=== PATIENT | male | born 1965 | race Caucasian/White ===

== ENCOUNTER 2018-07-27 07:53 | Day surgery (SDC) | payer BC ==
[2018-07-26 12:44] VITALS: BMI 39.4
--- NOTE | 2018-07-27 08:18 | HP ---
Satellite [facility] - Chief Complaint Chief Complaint: left knee pain - Past Medical History Allergies/Adverse Reactions: Allergies Allergy/AdvReac Type Severity Reaction Status Date / Time oxycodone [From OxyContin] Allergy Intermediate Verified 07/26/18 12:45 - Current Medications Current Medications: Home Medications Medication Instructions Recorded Oxycodone HCl/Acetaminophen 1 each PO Q6H PRN 07/26/18 [Percocet 10-325 mg Tablet] Satellite Physical Exam - Physical Examination General Appearance: Well Nourished, Well Developed, Alert & Oriented x3 ENT: Clear Lung: Normal air movement Heart: Regular rate & rhythm Extremities: Other (left knee- + swelling, + ttp ,decr rom, + mcmurrays, nvi MRI +mmt) Neurological: Intact, Alert, Oriented Satellite Impression/Plan - Impression/Plan Impression: left knee mmt Operative Procedure: left knee arthroscopy Date to be Performed: 07/27/18
[2018-07-27] MEDS ORDERED: ONDANSETRON 4 MG/2 ML VIAL IVPUSH PRN (08:49)
[2018-07-27] MEDS ORDERED: PROPOFOL 20 ML ONE ×2 (08:57)
[2018-07-27] MEDS ORDERED: LACTATED RINGERS SOLUTION 1,000 ML IV SCH (09:00)
[2018-07-27] MEDS ORDERED: MIDAZOLAM HCL 2 MG/2 ML SINGLE DOSE VIAL ONE (10:03)
[2018-07-27] MEDS ORDERED: fentaNYL CITRATE 250 MCG/5 ML VIAL ONE (10:03)
[2018-07-27] MEDS ORDERED: LIDOCAINE HCL 2% (20ML MULTI-DOSE VIAL) NR ONE (10:14)
[2018-07-27] MEDS ORDERED: BUPIVACAINE HCL/PF 0.75% 10 ML VIAL ONE ×2 (10:14→10:27)
[2018-07-27] MEDS ORDERED: ceFAZolin SODIUM 1 GM VIAL IVPB ONE (10:45)
[2018-07-27] MEDS ORDERED: ceFAZolin SODIUM 1 GM VIAL ONE (10:49)
[2018-07-27] MEDS ORDERED: BUPIVACAINE HCL/PF 0.75% 10 ML VIAL PNB ONE (11:20)
--- NOTE | 2018-07-27 12:32 | OP ---
DATE OF OPERATION: 07/27/2018 PREOPERATIVE DIAGNOSIS: Left knee pain, medial meniscus tear. POSTOPERATIVE DIAGNOSIS: Medial meniscus tear, lateral meniscus tear, and osteoarthritis. PROCEDURE: Left knee arthroscopy, partial medial and lateral meniscectomies. SURGEON: Junior Hensley MD TENDER LABOR: None. PROCESS DESCRIPTION WRITER: , GROCERY BUYER ANESTHESIA: LMA anesthesia, intraarticular injection of 10 mL of 0.75% Marcaine. SPECIMENS: Arthroscopic shavings. BLOOD LOSS: None. BLOOD GIVEN: None. FLUID REPLACEMENT: PlasmaLyte, 700 mL. INDICATIONS: This patient is a 52-year-old male with a preoperative diagnosis of left knee pain, medial meniscus tear, and osteoarthritis. After understanding the potential risks, complications, alternatives, and benefits of surgery versus nonsurgical treatment, the patient elected to undergo this procedure. DESCRIPTION OF PROCEDURE: The patient was brought to the operating room, peripheral IV placed, and IV sedation was given. Then, 3 g of IV Ancef were given. LMA anesthesia was induced. He was placed in the supine positon. Ample Webril was placed around the left thigh. The C-clamp leg-morel was applied with the Styrofoam ring. Left lower extremity was prepped and draped in sterile fashion, elevated, exsanguinated with an Esmarch bandage, and tourniquet was inflated to 275 mmHg. A superior medial outflow portal was established, lateral portal was established, and an arthroscope was introduced into the joint, and under direct visualization, the medial portal was established. A diagnostic arthroscopy was performed. The patient was seen to have a relatively small tear of the posterior aspect of the body, and the anterior aspect of the posterior horn of the medial meniscus. This was debrided with a curved shaver. Photographs taken before and after. The knee articular cartilage in the medial compartment did not look bad. The intercondylar notch looked good. The ACL looked good and had the appropriate tension. In the lateral compartment, the lateral femoral condyle and lateral tibial plateau also looked good, but minimal grade 1 changes, and the patient had the small tear of the anterior horn and the anterior aspect of the body of the lateral meniscus. This was debrided with the curved shaver. Next, our attention turned to the patellofemoral joint. 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 I gently debrided the area, removed some excessive synovitis and hypertrophie Hoffas fat pad. The area was copiously irrigated and washed out. All equipment removed. Excess saline removed. The arthroscopy portal was closed with 3-0 nylon sutures. Then, 10 mL of 0.75% Marcaine was introduced into the joint. The area was then washed and dried and covered with Xeroform, 4x4, Webril, and a 6-inch Nii bandage. The tourniquet was taken down after total tourniquet of 15 minutes. There were no complications during the case. The patient tolerated the procedure well, was brought to the ambulatory recovery room in stable condition. JUNIOR HENSLEY M.D. [id number]
[2018-07-27 12:33] VITALS: TEMP 97.8
[2018-07-27 14:46] VITALS: BP 123/86; PULSE 95
--- NOTE | 2018-07-28 11:00 | OP ---
Operative Note - Note: Operative Date: 07/28/18 Pre-Operative Diagnosis: left knee pain, MM tear Operation: left knee arthroscopy, partial medial and lateral meniscectomy Post-Operative Diagnosis: Same as Pre-op Surgeon: Junior Lopez Anesthesiologist/SENIOR CENTER MANAGER: Jaz Barbour Anesthesia: General, Local Specimens Removed: shavings Estimated Blood Loss (mls): 0 Blood Volume Replaced (mls): 0 Fluid Volume Replaced (mls): 500 Operative Report Dictated: Yes
--- NOTE | 2018-07-28 17:10 | PATH ---
Surgical Pathology Report Patient Name: CORAL FIGUEROA Med. Rec. #: [id number] /Age/Gender: 1965 (Age: 52) / M Account: [id number] Location: [facility] SURGICAL Taken: 07/27/2018 Received: 07/27/2018 Reported: 07/28/2018 Physicians: Junior Lopez M.D. Specimen(s) Received LEFT KNEE SHAVINGS Clinical History Left knee tear Final Diagnosis KNEE SHAVINGS, LEFT, ARTHROSCOPY: FRAGMENTS OF CARTILAGE, DENSE FIBROCONNECTIVE TISSUE, AND REACTIVE SYNOVIUM. NODULAR CALCIFIC AGGREGATES CONSISTENT WITH CHONDROCALCINOSIS PRESENT. Electronically Signed Yu Ruiz M.D. Gross Description Received in formalin, labeled "left knee shavings," is a 4.5 x 4.0 x 0.6 cm. aggregate of friend-yellow soft tissue fragments. A investment representative portion is submitted in one cassette. /07/27/201807/27/2018
== END 2018-07-27 14:00 | disposition home or self-care (01) ==
LOC: JASU-SURG 07:53
PROVIDERS: ATTEND Orthopaedic Surgery
PROC: 0SBD4ZZ Excision of Left Knee Joint, Percutaneous Endoscopic Approach (ICD-10-PCS; 2018-07-27)
PROC: 0SBD4ZZ Excision of Left Knee Joint, Percutaneous Endoscopic Approach (ICD-10-PCS; principal; 2018-07-27 10:30)
DX: S83.282A Other tear of lateral meniscus, current injury, left knee, initial encounter (principal); S83.242A Other tear of medial meniscus, current injury, left knee, initial encounter; X58.XXXA Exposure to other specified factors, initial encounter; Y93.9 Activity, unspecified; Y92.9 Unspecified place or not applicable; Y99.9 Unspecified external cause status
CPT/HCPCS: 88304-TC; 94760

== ENCOUNTER 2018-08-15 12:00 | Day surgery (SDC) | payer BC ==
[2018-08-14 10:51] VITALS: BMI 39.4
--- NOTE | 2018-08-15 11:27 | HP ---
Satellite [facility] - Chief Complaint Chief Complaint: right shoulder pain - Past Medical History Allergies/Adverse Reactions: Allergies Allergy/AdvReac Type Severity Reaction Status Date / Time oxycodone [From OxyContin] Allergy "water Verified 07/27/18 08:25 blisters on face" - Current Medications Current Medications: Home Medications Medication Instructions Recorded Oxycodone HCl/Acetaminophen 1 each PO Q6H PRN 07/26/18 [Percocet 10-325 mg Tablet] [facility] Physical Exam - Physical Examination General Appearance: Well Nourished, Well Developed, Alert & Oriented x3 ENT: Clear Lung: Normal air movement Heart: Regular rate & rhythm Extremities: Other (right shoulder- + ttp, decr rom, + empty can, + neer, + hickman, nvi MRI + rct) Neurological: Intact, Alert, Oriented Satellite Impression/Plan - Impression/Plan Impression: right shoulder rct Operative Procedure: right shoulder arthroscopy with RCR, SAD Date to be Performed: 08/15/18
[2018-08-15] MEDS ORDERED: ROPIVACAINE HCL 0.5% 30ML VIAL ONE (14:00)
[2018-08-15] MEDS ORDERED: DEXAMETHASONE SOD PHOSPHATE/PF 10 MG/ML SDV ONE (14:00)
[2018-08-15] MEDS ORDERED: MIDAZOLAM HCL 2 MG/2 ML SINGLE DOSE VIAL ONE ×3 (14:17→15:07)
[2018-08-15] MEDS ORDERED: SUCCINYLCHOLINE CHLORIDE 200 MG/10 ML VIAL ONE (15:07)
[2018-08-15] MEDS ORDERED: PROPOFOL 20 ML ONE ×2 (15:07)
[2018-08-15] MEDS ORDERED: ceFAZolin SODIUM 1 GM VIAL ONE (15:35)
[2018-08-15] MEDS ORDERED: ceFAZolin SODIUM 1 GM VIAL IVPB ONE (15:35)
[2018-08-15] MEDS ORDERED: DEXAMETHASONE SOD PHOSPHATE 4 MG/1 ML VIAL ONE (15:35)
--- NOTE | 2018-08-15 16:42 | OP ---
Operative Note - Note: Operative Date: 08/15/18 Pre-Operative Diagnosis: right shoulder impingement, RTC tear Operation: right shoulder arthroscopy, subacromial decompression, arthroscopic RTC repair Implants: Arthrex Swivel Lock anchors x 2, fiber wire x 6 Surgeon: Junior Lopez Ground Crewman Mission Support: Javier Yanez Anesthesiologist/SECURITY OPERATIONS SPECIALIST: Raul Tolbert Anesthesia: General, Local Specimens Removed: shavings Estimated Blood Loss (mls): 50 Blood Volume Replaced (mls): 0 Fluid Volume Replaced (mls): 1,000 Operative Report Dictated: Yes
[2018-08-15] MEDS ORDERED: oxyCODONE HCL 5 MG TABLET PO PRN (17:17)
[2018-08-15] MEDS ORDERED: ONDANSETRON 4 MG/2 ML VIAL IVPUSH PRN (17:17)
[2018-08-15] MEDS ORDERED: LACTATED RINGERS SOLUTION 1,000 ML IV SCH (17:30)
[2018-08-15 19:07] VITALS: BP 121/71; PULSE 89; TEMP 97.9
--- NOTE | 2018-08-15 19:16 | SPEC ---
DATE OF OPERATION: 08/15/2018 PREOPERATIVE DIAGNOSIS: Right shoulder impingement syndrome and rotator cuff tear. POSTOPERATIVE DIAGNOSIS: Right shoulder impingement syndrome and rotator cuff tear. PROCEDURE: Right shoulder arthroscopy, subacromial decompression, and arthroscopic rotator cuff repair. SURGEON: Nikko Hensley MD BASKET BOTTOM MACHINE OPERATOR: STU Bain ANESTHESIOLOGIST: Raul Tolbert MD: Right interscalene block with LM anesthesia. DRAINS: None. COMPLICATIONS: None. SPECIMEN: Arthroscopic shavings. BLOOD LOSS: 50 mL. BLOOD GIVEN: None. FLUID REPLACEMENT: 1000 mL Plasmalyte. This patient is a 52-year-old male with a preoperative diagnosis of a right shoulder impingement syndrome and a rotator cuff tear. After understanding the potential risks, complications, alternatives, and benefits to surgical versus nonsurgical treatment, the patient elected to undergo this procedure. The patient was brought to the operating room, peripheral IV placed, IV sedation given, 3 g of IV Ancef was given. Right interscalene block was performed. LM anesthesia induced. He was placed to beach chair position with ample padding throughout. The right upper extremity was prepped and draped in sterile fashion. The bony landmarks were marked out with a marking pen. The posterior portal was established. A diagnostic glenohumeral arthroscopy was performed. The patient was seen to have a clear full-thickness rotator cuff but it looked very repairable. The biceps tendon was completely ruptured. The labrum looked a little frayed but otherwise okay. The glenoid had some grade 2 osteoarthritic changes. The humeral head looked good with no arthritis. Next, our attention was turned to the subacromial space. A lateral portal was established with a spinal needle. A number 15 scalpel blade and a green cannula was introduced into the subacromial space. Using a combination of the ArthroCare wand and the straight shaver, an extensive debridement/bursectomy was performed. This revealed a large crescent-shaped tear of the supraspinatus and infraspinatus. It was very mobilizable. I decorticated its landing bed, put in arthroscopically 6 FiberWire sutures, passed these through 2 Arthrex Swivel-Lock anchors, one anterior, one posterior, and put these Swivel-Locks down into the humeral head. The arm was moved as a unit. The rotator cuff was completely repaired and completely covering the humeral head. It moved as a unit with the humeral head and there was plenty of space with the subacromial decompression. The arm was put through a full range of motion. There were no points of compression. The area was copiously irrigated and washed out. The arthroscopy portals were closed with 3-0 nylon suture. The area was then washed and dried and covered with Aquacel dressing. The patient was placed into a shoulder immobilizer, extubated, brought down out of the beach chair position, brought to the ambulatory recovery room in stable condition. NIKKO HENSLEY M.D. [id number]
--- NOTE | 2018-08-17 17:31 | PATH ---
Surgical Pathology Report Patient Name: CORAL FIGUEROA Med. Rec. #: [id number] /Age/Gender: 1965 (Age: 52) / M Account: [id number] Location: [facility] SURGICAL Taken: 08/15/2018 Received: 08/16/2018 Reported: 08/17/2018 Physicians: Junior Lopez M.D. Specimen(s) Received RIGHT SHOULDER SHAVINGS Clinical History Right shoulder impingement Final Diagnosis SHOULDER SHAVINGS, RIGHT, ARTHROSCOPY: FRAGMENTS OF BENIGN CARTILAGE, DENSE FIBROCONNECTIVE TISSUE, ADIPOSE TISSUE, SYNOVIUM, AND SKELETAL MUSCLE. Electronically Signed Yu Ruiz M.D. Gross Description Received in formalin, labeled "right shoulder shavings," is a 5.0 x 3.4 x 0.7 cm. aggregate of friend-yellow soft tissue fragments. A account representative portion is submitted in one cassette. /08/16/2018 saudi08/16/2018
== END 2018-08-15 18:50 | disposition home or self-care (01) ==
LOC: JASU-SURG 12:00
PROVIDERS: ATTEND Orthopaedic Surgery
PROC: 0LQ14ZZ Repair Right Shoulder Tendon, Percutaneous Endoscopic Approach (ICD-10-PCS; principal; 2018-08-15 13:30)
PROC: 0RNJ4ZZ Release Right Shoulder Joint, Percutaneous Endoscopic Approach (ICD-10-PCS; 2018-08-15 13:30)
DX: M75.41 Impingement syndrome of right shoulder (principal); M75.101 Unspecified rotator cuff tear or rupture of right shoulder, not specified as traumatic
CPT/HCPCS: 88304-TC; 94760

== ENCOUNTER 2019-01-29 14:20 | Inpatient (IN) | payer BC ==
--- NOTE | 2019-01-29 14:54 | PDOC ---
Rapid Medical Evaluation Time Seen by Provider: 01/29/19 14:51 Medical Evaluation: Allergies Allergy/AdvReac Type Severity Reaction Status Date / Time oxycodone [From OxyContin] Allergy "water Verified 01/29/19 14:51 blisters on face" 01/29/19 14:52 I have performed a brief in-person evaluation of this patient. The patient presents with a chief compliant of shortness of breath today and chest discomfort, Sent from [facility] with abnormal ekg. Reports weaknes Pertinent physical exam findings NAD slightly unlabored breathing heart s1s2 edema of ble I have ordered the following iv access, labs, ekg chest xray The patient will proceed to the ED for further evaluation. Discharge Disposition - Diagnosis Shortness of breath - Referrals - Patient Instructions - Post Discharge Activity
[2019-01-29 16:11] LABS: VENOUS PC02 42.6 mmHg (41-51); VENOUS PH 7.42 (7.31-7.41); VENOUS PO2 62.2 mmHg (30-40)
[2019-01-29 16:16] LABS: BASO % 0.9 % (0-2.0); EOS % 2.9 % (0-4.5); HEMATOCRIT 41.8 % (35.4-49); HEMOGLOBIN 14.5 GM/dL (11.7-16.9); LYMPH % 29.6 % (8-40); MCH 29.7 pg (25.7-33.7); MCHC 34.6 g/dl (32.0-35.9); MEAN CELL VOLUME 85.8 fl (80-96); MEAN PLT VOLUME 8.5 fl (7.5-11.1); MONO % 11.5 % (3.8-10.2); NEUT % 55.1 % (42.8-82.8); PLATELET COUNT 212 K/MM3 (134-434); RBC 4.87 M/mm3 (4.00-5.60); RDW 15.9 % (11.9-15.9); WHITE BLOOD COUNT 8.7 K/mm3 (4.0-10.0)
[2019-01-29] MEDS ORDERED: ALBUTEROL SO4 2.5/IPRATROPIUM 0.5 INH SOL 3 ML VIAL.NEB. NEB ONE ×2 (16:16→16:44)
[2019-01-29 16:29] LABS: INR 1.12 (0.83-1.09); PROTHROMBIN TIME (PATIENT) 13.2 SEC (9.7-13.0)
[2019-01-29 16:32] LABS: ACTIVATED PTT 29.7 SECONDS (25.2-36.5)
[2019-01-29 16:42] LABS: ALBUMIN 3.2 g/dl (3.4-5.0); ALK PHOS 69 U/L (45-117); ANION GAP 5 MMOL/L (8-16); BILIRUBIN,TOTAL 0.3 mg/dL (0.2-1); BLOOD UREA NITROGEN 22 mg/dL (7-18); CALCIUM 8.1 mg/dL (8.5-10.1); CHLORIDE 108 mmol/L (98-107); CO2 26 mmol/L (21-32); CREATININE 1.2 mg/dL (0.55-1.3); GLUCOSE,RANDOM 96 mg/dL (74-106); POTASSIUM 4.5 mmol/L (3.5-5.1); SGOT/AST 50 U/L (15-37); SGPT/ALT 81 U/L (13-61); SODIUM 138 mmol/L (136-145); TOT PROT 6.7 g/dl (6.4-8.2)
[2019-01-29 17:33] LABS: N-TERMINAL BNP 75.8 pg/ml (5-125)
--- NOTE | 2019-01-29 17:35 | PDOC ---
History of Present Illness - General Chief Complaint: Shortness of Breath Stated Complaint: SENT BY PCP / COUGHING Time Seen by Provider: 01/29/19 14:51 History Source: Patient Exam Limitations: No Limitations - History of Present Illness Initial Comments: 01/29/19 17:29 Patient is a 53M with obesity, multiple orthopedic surgeries, s/p thymus removal with R hemidiaphragm elevation here today complaining of chest pain, shortness of breath, and cough for the past week. He was seen at [facility] twice for these symptoms. The first time he was treated with inhalers and steroids with no effect. The second time he was found to be tachycardic per their summary note. EKG shows NSR with no st elevation/depressions. Left axis. LAFB and RBBB pattern. Patient states that his last EKG was normal. 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 Denies fevers, chills, nausea, vomiting. Chest pain is worse with inspiration. SOB worsened with exertion. Denies leg swelling , history of blood clots. Patient endorses prior history of smoking cigars. Past History - Past Medical History Allergies/Adverse Reactions: Allergies Allergy/AdvReac Type Severity Reaction Status Date / Time oxycodone [From OxyContin] Allergy "water Verified 01/29/19 14:51 blisters on face" Home Medications: Ambulatory Orders Oxycodone HCl/Acetaminophen [Percocet 10-325 mg Tablet] 1 each PO Q6H PRN #30 tablet MDD 4 08/15/18 Anemia: No Asthma: No Cancer: No Cardiac Disorders: No CVA: No COPD: No CHF: No Dementia: No Diabetes: No GI Disorders: No Disorders: No HTN: No Hypercholesterolemia: No Liver Disease: No Seizures: No Thyroid Disease: No - Surgical History Neurologic Surgery: Yes (cervical spinal fusion) Orthopedic Surgery: Yes (carpal tunnel/arthroscopy both hands) - Immunization History Immunization Up to Date: Yes - Suicide/Smoking/Psychosocial Hx Smoking History: Never smoked Have you smoked in the past 12 months: No Hx Alcohol Use: No Drug/Substance Use Hx: No Substance Use Type: None Hx Substance Use Treatment: No Review of Systems - Review of Systems Able to Perform ROS?: Yes Comments:: 01/29/19 17:33 GENERAL/CONSTITUTIONAL: No fever or chills. No weakness. HEAD, EYES, EARS, NOSE AND THROAT: No change in vision. No ear pain or discharge. No sore throat. CARDIOVASCULAR: +chest pain +shortness of breath RESPIRATORY: +cough, +wheezing, no hemoptysis. GASTROINTESTINAL: No nausea, vomiting, diarrhea or constipation. GENITOURINARY: No dysuria, frequency, or change in urination. MUSCULOSKELETAL: No joint or muscle swelling or pain. No neck or back pain. SKIN: No rash NEUROLOGIC: No headache, vertigo, loss of consciousness, or change in strength/ sensation. ENDOCRINE: No increased thirst. No abnormal weight change HEMATOLOGIC/LYMPHATIC: No anemia, easy bleeding, or history of blood clots. ALLERGIC/IMMUNOLOGIC: No hives or skin allergy. *Physical Exam - Vital Signs Last Vital Signs Temp Pulse Resp BP Pulse Ox 98.2 F 88 16 151/89 97 01/29/19 14:52 01/29/19 14:52 01/29/19 14:52 01/29/19 14:52 01/29/19 14:52 - Physical Exam Comments: 01/29/19 17:35 GENERAL: Awake, alert, and fully oriented, in no acute distress, obese HEAD: No signs of trauma, normocephalic, atraumatic EYES: PERRLA, EOMI, sclera anicteric, conjunctiva clear ENT: Auricles normal inspection, hearing grossly normal, nares patent, oropharynx clear without exudates. Moist mucosa NECK: Normal ROM, supple, no lymphadenopathy, JVD, or masses LUNGS: No distress, speaks full sentences, wheezing bilaterally, left worse than right HEART: Regular rate and rhythm, normal S1 and S2, no murmurs, rubs or gallops, peripheral pulses normal and equal bilaterally. ABDOMEN: Soft, nontender, normoactive bowel sounds. No guarding, no rebound. No masses EXTREMITIES: Normal inspection, Normal range of motion, no edema. No clubbing or cyanosis. NEUROLOGICAL: Cranial nerves II through XII grossly intact. Normal speech, normal gait, no focal sensorimotor deficits SKIN: Warm, Dry, normal turgor, no rashes or lesions noted. Moderate Sedation - Procedure Monitoring Vital Signs: Procedure Monitoring Vital Signs Temperature 98.2 F 01/29/19 14:52 Pulse Rate 88 01/29/19 14:52 Respiratory Rate 16 01/29/19 14:52 Blood Pressure 151/89 01/29/19 14:52 O2 Sat by Pulse Oximetry (%) 97 01/29/19 14:52 Heart Score/ECG Review - History History: Slightly suspicious - Electrocardiogram EKG: Non specific repolarization disturbance - Age Age: 45-65 - Risk Factors Risk Factors Heart Score: Yes Hx Obesity Based on the list above the patient has:: 1-2 risk factors - Troponin Troponin: </= normal limit - Score Heart Score - Total: 3 ED Treatment Course - LABORATORY CBC & Chemistry Diagram: 01/29/19 15:55 01/29/19 15:55 - ADDITIONAL ORDERS Additional order review: Laboratory Results 01/29/19 01/29/19 01/29/19 15:55 15:47 15:47 PT with INR 13.20 H INR 1.12 H PTT (Actin FS) 29.7 VBG pH 7.42 H POC VBG pCO2 42.6 POC VBG pO2 62.2 H VBG HCO3 26.9 VBG O2 Sat (Yane) 91.5 H VBG Base Excess 2.5 H Sodium 138 Potassium 4.5 Chloride 108 H Carbon Dioxide 26 Anion Gap 5 L BUN 22 H Creatinine 1.2 Creat Clearance w eGFR 63.58 Random Glucose 96 Calcium 8.1 L Total Bilirubin 0.3 AST 50 H ALT 81 H Alkaline Phosphatase 69 Troponin I < 0.02 Total Protein 6.7 Albumin 3.2 L 01/29/19 15:55 RBC 4.87 MCV 85.8 MCHC 34.6 RDW 15.9 MPV 8.5 Neutrophils % 55.1 Lymphocytes % 29.6 Monocytes % 11.5 H Eosinophils % 2.9 Basophils % 0.9 - RADIOLOGY Radiology Studies Ordered: Category Date Time Status CHEST CTA [CT] Stat CT Scan 01/29/19 17:23 Ordered CHEST PA & LAT [RAD] Stat Radiology 01/29/19 16:15 Completed - Medications Given in the ED: ED Medications Discontinued Medications Generic Name Dose Route Start Last Admin Trade Name Freq PRN Reason Stop Dose Admin Albuterol/Ipratropium 1 amp 01/29/19 16:16 01/29/19 16:46 Duoneb - NEB 01/29/19 16:17 1 amp ONCE ONE Administration Medical Decision Making - Medical Decision Making 01/29/19 17:36 Patient is 53M with history of obesity, multiple orthopedic surgeries, s/p thymus removal with R hemidiaphragm elevation here today with chest pain, shortness of breath, cough. Vitals normal and stable. DDx includes, but is not limited to: PE, ACS, pneumonia, CHF. Patient is low-risk for PE, will d-dimer. CXR shows ?RUL infiltrate, suggests CT as normal. D-dimer negative, will do ct with iv contrast. CBC, CMP shows mild ast/alt elevations. Trop negative. BNP normal. VBG shows no evidence of acidemia or CO2 retention. 01/29/19 17:54 EKG shows normal sinus rhythm with rate of 86. No st elevations/depressions. ? Left axis. RBBB pattern. No significant changes from ekg in 2018. 01/29/19 19:27 CT Chest shows no infiltrate, does show 1.3cm hilar lymph node with suggestion of PET/CT scan. Will admit to tele obs for ACS rule out. *DC/Admit/Observation/Transfer Diagnosis at time of Disposition: Shortness of breath, Chest pain - Discharge Dispostion Condition at time of disposition: Stable Decision to Admit order: Yes - Referrals - Patient Instructions - Post Discharge Activity
--- NOTE | 2019-01-29 17:45 | PDOC ---
Attending Attestation - HPI HPI: 01/29/19 19:37 The patient is a 53 year old male, with a significant past medical history of obesity, multiple orthopedic surgeries, (s/p thymus removal with R hemidiaphragm elevation) who presents to the emergency department with one week of chest pain, SOB, and cough. The patient states he went to [facility] twice for similar symptoms. The patient notes the first visit, he was treated with inhalers and steroids with no relief and the second visit, he was diagnosed tachycardic. The patient states that his last EKG was normal. The patient denies fever, chills, nausea, vomit, diarrhea, constipation, dysuria , frequency, urgency or hematuria. Allergies: oxycodone Past surgical history:cervical spinal fusion, carpal tunnel/arthroscopy both hands Social history: None reported - Physicial Exam PE: 01/29/19 19:38 GENERAL: (+) morbidly obese. (+) diaphoretic. Awake, alert, and fully oriented , in no acute distress HEAD: No signs of trauma EYES: PERRLA, EOMI, sclera anicteric, conjunctiva clear ENT: Auricles normal inspection, hearing grossly normal, nares patent, oropharynx clear without exudates. Moist mucosa NECK: Normal ROM, supple, no lymphadenopathy, JVD, or masses LUNGS:(+) coarse wheezing at bases L>R. Breath sounds equal. No crackles HEART: Regular rate and rhythm, normal S1 and S2, no murmurs, rubs or gallops ABDOMEN: (+)protuberant, nontender, normoactive bowel sounds. No guarding, no rebound. No masses EXTREMITIES: (+) + 2 pitting edema. Normal range of motion. No clubbing or cyanosis. No cords, erythema, or tenderness NEUROLOGICAL: (+) axox3. Cranial nerves II through XII grossly intact. Normal speech, normal gait SKIN: Warm, Dry, normal turgor, no rashes or lesions noted. <Amanda Eubanks - Last Filed: 01/29/19 19:37> - Resident Resident Name: Garrison Lafleur - ED Attending Attestation I have performed the following: I have examined & evaluated the patient, The case was reviewed & discussed with the resident, I agree w/resident's findings & plan, Exceptions are as noted - HPI HPI: 01/29/19 17:47 This 53-year-old male presents with cough, shortness of breath for the past 2 weeks 01/29/19 19:15 - Physicial Exam PE: 01/29/19 19:15 morbidly obese 53 yo male with course productive cough, + diaphoretic head ncat eyes natanael eomi neck supple lungs coarse wheezing at bases L>R cvs [id number] abd protuberant,no guarding, no rebound skin warm and dry, no rashes extremities + 2 edema no cva tenderness neuro axox3,ambulatory psych appropriate - Medical Decision Making 01/29/19 19:42 ct scan chest : 1.3 cm hilar lymph node 01/29/19 19:43 IMP bronchitis,lymph adenapathy,chest pain admitted to OBS telemetry <Dulce Ji - Last Filed: 01/29/19 19:44> Attestations - Attestations 01/29/19 19:38 Documentation prepared by Amanda Ebuanks, acting as medical assistant secretary for Dulce Ji MD <Amanda Eubanks - Last Filed: 01/29/19 19:37>
--- NOTE | 2019-01-29 20:23 | HP ---
Admitting History and Physical - Primary Care Physician PCP: Antonio Pham - Admission Chief Complaint: chest pain History of Present Illness: 53 year old male, with a significant past medical history of obesity, multiple orthopedic surgeries, (s/p thymus removal with R hemidiaphragm elevation) who presents to the emergency department with one week of chest pain, SOB, and cough. The patient states he went to [facility] twice for similar symptoms. The patient notes the first visit, he was treated with inhalers and steroids with no relief and the second visit, he was diagnosed tachycardic. The patient states that his last EKG was normal. - Smoking History Smoking history: Never smoked Have you smoked in the past 12 months: No - Alcohol/Substance Use Hx Alcohol Use: No Home Medications - Allergies Allergies/Adverse Reactions: Allergies Allergy/AdvReac Type Severity Reaction Status Date / Time oxycodone [From OxyContin] Allergy "water Verified 01/29/19 14:51 blisters on face" - Home Medications Home Medications: Ambulatory Orders Oxycodone HCl/Acetaminophen [Percocet 10-325 mg Tablet] 1 each PO Q6H PRN #30 tablet MDD 4 08/15/18 Physical Examination Vital Signs: Vital Signs Temperature 98.2 F 01/29/19 14:52 Pulse Rate 88 01/29/19 14:52 Respiratory Rate 16 01/29/19 14:52 Blood Pressure 151/89 01/29/19 14:52 O2 Sat by Pulse Oximetry (%) 97 01/29/19 14:52 Constitutional: Yes: No Distress HENT: Yes: Atraumatic Neck: Yes: Supple Cardiovascular: Yes: Regular Rate and Rhythm Respiratory: Yes: CTA Bilaterally Gastrointestinal: Yes: Normal Bowel Sounds Extremities: Yes: WNL Edema: No Neurological: Yes: Alert, Oriented Labs: CBC, BMP 01/29/19 15:55 01/29/19 15:55 Imaging - Results Cat Scan: Report Reviewed Problem List - Problems (1) Obesity Code(s): E66.9 - OBESITY, UNSPECIFIED Qualifiers: Obesity type: unspecified obesity type (2) Chest pain Assessment/Plan: tele monitoring fu cardiac profile cardiology consult Code(s): R07.9 - CHEST PAIN, UNSPECIFIED Qualifiers: Chest pain type: unspecified Qualified Code(s): R07.9 - Chest pain, unspecified (3) Shortness of breath Assessment/Plan: iv steroids iv abx Code(s): R06.02 - SHORTNESS OF BREATH (4) Asthmatic bronchitis Code(s): J45.909 - UNSPECIFIED ASTHMA, UNCOMPLICATED Qualifiers: Asthma severity: unspecified severity Asthma persistence: unspecified Asthma complication type: uncomplicated Qualified Code(s): J45.909 - Unspecified asthma, uncomplicated (5) HTN (hypertension) Assessment/Plan: monitor cardiology consul Code(s): I10 - ESSENTIAL (PRIMARY) HYPERTENSION Qualifiers: Hypertension type: essential hypertension Qualified Code(s): I10 - Essential (primary) hypertension (6) URI (upper respiratory infection) Assessment/Plan: on abx pr id Code(s): J06.9 - ACUTE UPPER RESPIRATORY INFECTION, UNSPECIFIED Assessment/Plan Laboratory Tests 01/29/19 01/29/19 01/29/19 15:47 15:47 15:55 WBC 8.7 RBC 4.87 Hgb 14.5 Hct 41.8 MCV 85.8 MCH 29.7 MCHC 34.6 RDW 15.9 Plt Count 212 MPV 8.5 Absolute Neuts (auto) 4.8 Neutrophils % 55.1 Lymphocytes % 29.6 Monocytes % 11.5 H Eosinophils % 2.9 Basophils % 0.9 Nucleated RBC % 0 PT with INR 13.20 H INR 1.12 H PTT (Actin FS) 29.7 D-Dimer VBG pH 7.42 H POC VBG pCO2 42.6 POC VBG pO2 62.2 H VBG HCO3 26.9 VBG O2 Sat (Yane) 91.5 H VBG Base Excess 2.5 H Sodium Potassium Chloride Carbon Dioxide Anion Gap BUN Creatinine Creat Clearance w eGFR Random Glucose Calcium Total Bilirubin AST ALT Alkaline Phosphatase Troponin I B-Natriuretic Peptide Total Protein Albumin 01/29/19 01/29/19 15:55 17:20 WBC RBC Hgb Hct MCV MCH MCHC RDW Plt Count MPV Absolute Neuts (auto) Neutrophils % Lymphocytes % Monocytes % Eosinophils % Basophils % Nucleated RBC % PT with INR INR PTT (Actin FS) D-Dimer 440 VBG pH POC VBG pCO2 POC VBG pO2 VBG HCO3 VBG O2 Sat (Yane) VBG Base Excess Sodium 138 Potassium 4.5 Chloride 108 H Carbon Dioxide 26 Anion Gap 5 L BUN 22 H Creatinine 1.2 Creat Clearance w eGFR 63.58 Random Glucose 96 Calcium 8.1 L Total Bilirubin 0.3 AST 50 H ALT 81 H Alkaline Phosphatase 69 Troponin I < 0.02 B-Natriuretic Peptide 75.8 Total Protein 6.7 Albumin 3.2 L Active Medications Generic Name Dose Route Start Last Admin Trade Name Freq PRN Reason Stop Dose Admin Acetaminophen 650 mg 01/29/19 20:25 01/30/19 03:39 Tylenol - PO 650 mg Q6H PRN Administration FEVER Albuterol/Ipratropium 1 amp 01/29/19 21:53 01/30/19 15:23 Duoneb - NEB 1 amp Q4H PRN Administration SHORTNESS OF BREATH Heparin Sodium (Porcine) 5,000 unit 01/29/19 22:00 01/30/19 10:09 Heparin - SQ 5,000 unit BID TERRY Administration Piperacillin Sod/Tazobactam 50 mls @ 100 mls/hr 01/29/19 22:30 01/30/19 10:10 Sod 3.375 gm/ Dextrose IVPB 100 mls/hr Q8H-IV TERRY Administration Protocol Piperacillin Sod/Tazobactam 50 mls @ 100 mls/hr 01/30/19 18:00 Sod 3.375 gm/ Dextrose IVPB Q8H-IV TERRY Protocol Methylprednisolone Sodium Succinate 60 mg 01/29/19 21:45 01/30/19 16:26 Solu-Medrol - IVPUSH 60 mg Q6H-IV TERRY Administration
[2019-01-29] MEDS ORDERED: ACETAMINOPHEN 325 MG TABLET (FP) ONE (21:29)
[2019-01-29] MEDS: ACETAMINOPHEN 325 MG TABLET (FP) PO PRN (21:32)
[2019-01-30] MEDS ORDERED: methylPREDNISolone NA SUCC 125 MG/2 ML VIAL ONE (01:15)
[2019-01-30] MEDS ORDERED: PIPERACILLIN/TAZOB 3.375 GM 3.375 GM/50 ML BAG IVPB ONE (01:15)
[2019-01-30] MEDS ORDERED: HEPARIN NA (PORCINE) 5,000 UNITS/ML 1ML VIAL ONE (01:15)
[2019-01-30] MEDS: PIPERACILLIN/TAZOB 3.375 GM 3.375 GM in DEXTROSE 5%-WATER - 50 ML IVPB SCH ×4 (01:34→17:58)
[2019-01-30] MEDS: methylPREDNISolone NA SUCC 40 MG/1 ML VIAL IVPUSH SCH ×5 (01:34→21:26)
[2019-01-30] MEDS: HEPARIN NA (PORCINE) 5,000 UNITS/ML 1ML VIAL SQ SCH ×3 (01:34→21:26)
[2019-01-30] MEDS ORDERED: PIPERACILLIN/TAZOB 3.375 GM 3.375 GM in DEXTROSE 5%-WATER - 50 ML IVPB SCH (02:00)
[2019-01-30] MEDS: ACETAMINOPHEN 325 MG TABLET (FP) PO PRN ×2 (03:39→17:38)
[2019-01-30 05:14] VITALS: BMI 46.0
[2019-01-30 06:38] LABS: BASO % 0.5 % (0-2.0); EOS % 1.7 % (0-4.5); HEMATOCRIT 45.1 % (35.4-49); HEMOGLOBIN 15.2 GM/dL (11.7-16.9); LYMPH % 18.3 % (8-40); MCHC 33.6 g/dl (32.0-35.9); MEAN CELL VOLUME 86.3 fl (80-96); MEAN PLT VOLUME 8.1 fl (7.5-11.1); MONO % 2.7 % (3.8-10.2); NEUT % 76.8 % (42.8-82.8); PLATELET COUNT 219 K/MM3 (134-434); RBC 5.23 M/mm3 (4.00-5.60); RDW 16.3 % (11.9-15.9); WHITE BLOOD COUNT 6.6 K/mm3 (4.0-10.0)
[2019-01-30 07:23] LABS: ALBUMIN 3.9 g/dl (3.4-5.0); ALK PHOS 77 U/L (45-117); ANION GAP 4 MMOL/L (8-16); BILIRUBIN,TOTAL 0.3 mg/dL (0.2-1); BLOOD UREA NITROGEN 18 mg/dL (7-18); CALCIUM 8.7 mg/dL (8.5-10.1); CHLORIDE 106 mmol/L (98-107); CHOLESTEROL 149 mg/dL (50-200); CO2 28 mmol/L (21-32); GLUCOSE,RANDOM 110 mg/dL (74-106); HDL CHOLESTEROL 50 mg/dL (40-60); POTASSIUM 4.9 mmol/L (3.5-5.1); SGOT/AST 46 U/L (15-37); SGPT/ALT 99 U/L (13-61); SODIUM 139 mmol/L (136-145); TOT PROT 7.8 g/dl (6.4-8.2); TRIGLYCERIDES 147 mg/dL (0-150)
[2019-01-30] MEDS ORDERED: PIPERACILLIN/TAZOBACTAM 3.375 GM VIAL IVPB ONE ×2 (10:07→17:31)
[2019-01-30] MEDS ORDERED: DEXTROSE 5%-WATER - 50 ML IVPB ONE ×2 (10:07→17:31)
--- NOTE | 2019-01-30 10:43 | EKG ---
Test Reason : Blood Pressure : / mmHG Vent. Rate : 086 BPM Atrial Rate : 086 BPM P-R Int : 154 ms QRS Dur : 142 ms QT Int : 414 ms P-R-T Axes : 049 -29 -01 degrees QTc Int : 495 ms NORMAL SINUS RHYTHM RIGHT BUNDLE BRANCH BLOCK ABNORMAL ECG Confirmed by Fareed Valente MD ([id number]) on 01/30/2019 10:43:18 AM Referred By: DARIUS Confirmed By:Fareed Valente MD
[2019-01-30] MEDS: ALBUTEROL SO4 2.5/IPRATROPIUM 0.5 INH SOL 3 ML VIAL.NEB. NEB PRN ×2 (11:05→15:23)
--- NOTE | 2019-01-30 11:10 | ECHO ---
Name: CORAL FIGUEROA Exam:Adult Echocardiogram Study Date: 01/30/2019 07:28 AM Age: 53 yrs Reason For Study: Chest pain Height: 76 in Weight: 324 lb BSA: 2.7 m2 MMode/2D Measurements & Calculations IVSd: 1.4 cm Ao root diam: 3.2 cm LVIDd: 4.7 cm LA dimension: 3.8 cm LVIDs: 2.5 cm LVPWd: 1.4 cm EDV(Teich): 102.8 ml LVOT diam: 2.5 cm ESV(Teich): 22.1 ml LAV (MOD-bp): 29.0 ml Doppler Measurements & Calculations MV E max patrick: 46.6 cm/sec Ao V2 max: 116.7 cm/sec MV A max patrick: 82.0 cm/sec Ao max P.5 mmHg MV E/A: 0.57 MV dec time: 0.05 sec EZE(V,D): 3.1 cm2 LV V1 max P.4 mmHg PA V2 max: 101.8 cm/sec LV V1 max: 77.1 cm/sec PA max P.1 mmHg Med Peak E' Patrick: 7.5 cm/sec Med E/e': 6.2 Lat Peak E' Patrick: 10.7 cm/sec Lat E/e': 4.4 Procedure A complete two-dimensional transthoracic echocardiogram was performed (2D, M-mode, Doppler and color flow Doppler). The study was technically difficult with many images being suboptimal in quality. Left Ventricle The left ventricle is normal in size. There is mild concentric left ventricular hypertrophy. Left khalida tricular systolic function is normal. Ejection Fraction = 60%. The transmitral spectral Doppler flow pattern i s suggestive of impaired LV relaxation. The left ventricular wall motion is normal. Right Ventricle The right ventricle is normal in size and function. Atria Normal left and right atrial size and function. There is a calcific density seen in some views in the Left Atrium near the interatrial septum, mobile, not well characterized, suggest DANAY if clinically indicat ed. Mitral Valve The mitral valve is normal in structure and function. Tricuspid Valve The tricuspid valve is normal in structure and function. There is trace tricuspid regurgitation. Ther e was insufficient TR detected to calculate RV systolic pressure. Aortic Valve The aortic valve is normal in structure and function. Pulmonic Valve The pulmonic valve is not well visualized. Great Vessels The aortic root is normal size. Pericardium/Pleura There is no pericardial effusion. There is no pleural effusion. Interpretation Summary The study was technically difficult with many images being suboptimal in quality. The left ventricle is normal in size. There is mild concentric left ventricular hypertrophy. Left ventricular systolic function is normal. Ejection Fraction = 60%. There is a calcific density seen in some views in the Left Atrium near the interatrial septum, mobile , not well characterized, suggest DANAY if clinically indicated. There is trace tricuspid regurgitation. MD Fareed Valente 01/30/2019 11:09 AM
[2019-01-30 11:36] LABS: ANISOCYTOSIS 0; HELMET CELLS 0; HOWELL-JOLLY BODIES 0; MACROCYTOSIS 0; OVALOCYTE 0; PLATELET ESTIMATE NORMAL; ROULEAU 0; SICKELED CELLS 0; TARGET CELLS 0; TEAR DROP CELLS 0; TOXIC GRANULATION 0
--- NOTE | 2019-01-30 12:28 | CON.CARD ---
Consult Consult Specialty:: Cardiology Referred by:: Dr. Pham Reason for Consultation:: Cardiac evaluation - History of Present Illness Chief Complaint: Cough, chest discomfort and tachycardia History of Present Illness: Patient is a 53 year old male with underlying history of thymus removal with right hemidiaphragm elevation who presents with chest discomfort in the left sternum, shortness of breath and cough. He denies paroxysmal nocturnal dyspnea or orthopnea. He denies fever or chills. He denies nausea, vomiting, diarrhea or abdominal pain. He denies headache or lightheadedness. - History Source History Provided By: Patient, Medical Record Limitations to Obtaining History: No Limitations - Past Surgical History Additional Surgical History: Thorocotomy for thymus gland removal and diaphragm surgery - Alcohol/Substance Use Hx Alcohol Use: No - Smoking History Smoking history: Never smoked Have you smoked in the past 12 months: No Home Medications - Allergies Allergies/Adverse Reactions: Allergies Allergy/AdvReac Type Severity Reaction Status Date / Time oxycodone [From OxyContin] Allergy "water Verified 01/29/19 14:51 blisters on face" - Home Medications Home Medications: Ambulatory Orders Oxycodone HCl/Acetaminophen [Percocet 10-325 mg Tablet] 1 each PO Q6H PRN #30 tablet MDD 4 08/15/18 Review of Systems - Review of Systems Constitutional: denies: Chills, Fever Cardiovascular: reports: Chest Pain, Shortness of Breath. denies: Palpitations Respiratory: reports: Cough, SOB. denies: Hemoptysis, Orthopnea, PND, SOB on Exertion Gastrointestinal: denies: Abdominal Pain, Constipation, Diarrhea, Melena, Nausea , Rectal Bleeding Genitourinary: denies: Dysuria, Hematuria Neurological: denies: Dizziness, Headache, Seizure, Syncope Vital Signs: Vital Signs Temperature 97.8 F 01/30/19 06:00 Pulse Rate 75 01/30/19 06:00 Respiratory Rate 20 01/30/19 06:00 Blood Pressure 157/96 01/30/19 06:00 O2 Sat by Pulse Oximetry (%) 96 01/30/19 03:30 Eyes: Yes: PERRL HENT: Yes: Atraumatic Neck: Yes: Supple Respiratory: Yes: CTA Bilaterally Gastrointestinal: Yes: Normal Bowel Sounds, Soft, Abdomen, Obese. No: Tenderness Cardiovascular: Yes: Regular Rate and Rhythm, Tachycardia JVD: No Carotid Bruit: No PMI: Non-Displaced Heart Sounds: Yes: S1, S2 Murmur: No: Systolic Murmur, Diastolic Murmur Edema: No - Other Data Labs, Other Data: CBC, BMP 01/30/19 05:30 01/30/19 05:30 INR, PTT INR 1.12 (0.83-1.09) H 01/29/19 15:47 Troponin, BNP 01/29/19 01/29/19 15:55 20:50 Troponin I < 0.02 < 0.02 B-Natriuretic Peptide 75.8 Laboratory Results - last 24 hr 01/29/19 01/30/19 01/30/19 20:50 05:30 05:30 WBC 6.6 RBC 5.23 Hgb 15.2 Hct 45.1 MCV 86.3 MCH 29.0 MCHC 33.6 RDW 16.3 H Plt Count 219 MPV 8.1 Absolute Neuts (auto) 5.1 Neutrophils % 76.8 D Neutrophils % (Manual) 80.0 Band Neutrophils % 0.0 Lymphocytes % 18.3 D Lymphocytes % (Manual) 14.0 Monocytes % 2.7 L Monocytes % (Manual) 4 Eosinophils % 1.7 Eosinophils % (Manual) 1.0 Basophils % 0.5 Basophils % (Manual) 0.0 Myelocytes % (Man) 0 Promyelocytes % (Man) 0 Blast Cells % (Manual) 0 Nucleated RBC % 0 Metamyelocytes 1 Hypochromia 0 Toxic Granulation 0 Dohle Bodies 0 Platelet Estimate Normal Polychromasia 0 Poikilocytosis 0 Basophilic Stippling 0 Anisocytosis 0 Microcytosis 0 Macrocytosis 0 Spherocytes 0 Sickle Cells 0 Target Cells 0 Tear Drop Cells 0 Ovalocytes 0 Stomatocytes 0 Helmet Cells 0 [place] Bodies 0 [place] Rings 0 [place] Cells 0 Acanthocytes (Spur) 0 Rouleaux 0 Fragmented RBCs 0 Schistocytes 0 Sodium Potassium Chloride Carbon Dioxide Anion Gap BUN Creatinine Creat Clearance w eGFR Random Glucose Hemoglobin A1c % 5.5 Calcium Total Bilirubin AST ALT Alkaline Phosphatase Creatine Kinase 461 H Creatine Kinase Index 0.9 CK-MB (CK-2) 4.4 H Troponin I < 0.02 Total Protein Albumin Triglycerides Cholesterol Total LDL Cholesterol HDL Cholesterol 01/30/19 05:30 WBC RBC Hgb Hct MCV MCH MCHC RDW Plt Count MPV Absolute Neuts (auto) Neutrophils % Neutrophils % (Manual) Band Neutrophils % Lymphocytes % Lymphocytes % (Manual) Monocytes % Monocytes % (Manual) Eosinophils % Eosinophils % (Manual) Basophils % Basophils % (Manual) Myelocytes % (Man) Promyelocytes % (Man) Blast Cells % (Manual) Nucleated RBC % Metamyelocytes Hypochromia Toxic Granulation Dohle Bodies Platelet Estimate Polychromasia Poikilocytosis Basophilic Stippling Anisocytosis Microcytosis Macrocytosis Spherocytes Sickle Cells Target Cells Tear Drop Cells Ovalocytes Stomatocytes Helmet Cells [place] Bodies [place] Rings [place] Cells Acanthocytes (Spur) Rouleaux Fragmented RBCs Schistocytes Sodium 139 Potassium 4.9 Chloride 106 Carbon Dioxide 28 Anion Gap 4 L BUN 18 Creatinine 1.0 Creat Clearance w eGFR 78.47 Random Glucose 110 H Hemoglobin A1c % Calcium 8.7 Total Bilirubin 0.3 AST 46 H ALT 99 H Alkaline Phosphatase 77 Creatine Kinase Creatine Kinase Index CK-MB (CK-2) Troponin I Total Protein 7.8 Albumin 3.9 Triglycerides 147 Cholesterol 149 Total LDL Cholesterol 74 HDL Cholesterol 50 Sinus rhythm with RBBB Echo: Pending Imaging - Results Chest X-ray: Report Reviewed (Ill defined right lobe density) Cat Scan: Report Reviewed (CT chest with hilar lymph node) EKG: Report Reviewed Problem List - Problems (1) HTN (hypertension) Code(s): I10 - ESSENTIAL (PRIMARY) HYPERTENSION Qualifiers: Hypertension type: unspecified Qualified Code(s): I10 - Essential (primary ) hypertension (2) Right bundle branch block Code(s): I45.10 - UNSPECIFIED RIGHT BUNDLE-BRANCH BLOCK (3) Asthmatic bronchitis Code(s): J45.909 - UNSPECIFIED ASTHMA, UNCOMPLICATED Qualifiers: Asthma severity: unspecified severity Asthma persistence: unspecified Asthma complication type: uncomplicated Qualified Code(s): J45.909 - Unspecified asthma, uncomplicated (4) Chest pain Code(s): R07.9 - CHEST PAIN, UNSPECIFIED Qualifiers: Chest pain type: unspecified Qualified Code(s): R07.9 - Chest pain, unspecified (5) Obesity Code(s): E66.9 - OBESITY, UNSPECIFIED Qualifiers: Obesity type: unspecified obesity type (6) Shortness of breath Code(s): R06.02 - SHORTNESS OF BREATH (7) URI (upper respiratory infection) Code(s): J06.9 - ACUTE UPPER RESPIRATORY INFECTION, UNSPECIFIED Assessment/Plan 1. Chest pain. SOB and cough suggest ? bronchitis 2. Abnormal ECG with RBBB 3. Hilar lymph node 4. HTN PLAN: 1. Transthoracic echocadiography to assess LV/RV and valvular function 2. Add ACEI or ARB for BP control and further antihypertensives to be recommended 3. Bronchodilator, empiric antibiotics, steroids and O2 4. Pulmonary input to follow regarding hilar LN which may be due to URI, but if persistent may need further evaluation to rule out malignancy Further plans are to follow Peter Damico MD
--- NOTE | 2019-01-30 12:53 | PN ---
Progress Note (short form) - Note Progress Note: PULMONARY CONSULTATION DICTATED 01/30/19 IMP ASTHMATIC BRONCHITIS H/O THYMECTOMY PROMINENT R HILAR NODE PLAN IV STEROIDS INHALED BRONCHODILATORS O2 ABX PFTS OUTPATIENT DR DAVID Problem List - Problems (1) Asthmatic bronchitis Code(s): J45.909 - UNSPECIFIED ASTHMA, UNCOMPLICATED (2) Obesity Code(s): E66.9 - OBESITY, UNSPECIFIED (3) Shortness of breath Code(s): R06.02 - SHORTNESS OF BREATH
--- NOTE | 2019-01-30 13:57 | CONS ---
DATE OF CONSULTATION: 01/30/2019 REFERRING PHYSICIAN: Bk Pham MD The patient is a 53-year-old white male with a past medical history of multiple orthopedic surgeries, history of thymectomy in 2013, subsequent elevation of the right hemidiaphragm status post pinning of right hemidiaphragm, nonsmoker, admitted to [facility] with complaint of cough, chest congestion, and wheezing. Patient states his symptoms initially started in November. At the time, he went to urgent care center and was treated with inhalers and some steroids with no significant effect. The 2nd time, apparently he went back and he was noted to be tachycardic. He was also treated with inhaled bronchodilators. For the past couple of days, he has increasing shortness of breath, chest congestion. Denies any fevers or chills. Denied any nausea, vomiting, or diaphoresis. He presented to the emergency room with above. In the ER, he was felt to be bronchospastic. He was started on inhaled bronchodilators, IV steroids, and transferred to medical floor for further management. Patient denies any weight loss or night sweats, denies any hemoptysis. Past medical history, includes multiple orthopedic surgeries, status post thymectomy, as well as pinning of the right hemidiaphragm to the dome of the liver. Current medications include Solu-Medrol, Tylenol, piperacillin, heparin, and DuoNeb. REVIEW OF SYSTEMS: Positive shortness of breath, positive cough, positive chest congestion, positive fever. No chills. No hemoptysis. No abdominal pain. No lower extremity edema. PHYSICAL EXAMINATION: General: The patient is an obese male, awake, alert, in no acute distress. Vital Signs: He is currently afebrile. Blood pressure is 157/96. Respiratory rate 20. O2 saturation is 96% on 2 L. HEENT: Normocephalic, atraumatic. Neck: Supple. Heart: Regular, S1, S2. Chest: A few scattered bilateral wheezes. Abdomen: Soft. Bowel sounds positive. Extremities: No cyanosis, edema. LABORATORY DATA: WBC is 6.6, hemoglobin 15.2, hematocrit 45.1, platelet count of 219,000, INR is 1.12. Venous blood gas: 7.42, pCO2 42, pO2 of 62. Chest CT: There is a 1.3 nonspecific right hilar node. No mediastinal or axillary adenopathy is appreciated. There is partial resection of the right mid and lower lobes posteriorly, moderate elevation of right hemidiaphragm, several small densities visualized on diaphragm surface and right lower lobe. No acute infiltrates or effusions. There is mild discoid atelectasis, scarring within the right middle lobe. IMPRESSION: 1. Likely acute asthmatic bronchitis secondary to upper respiratory infection. 2. Status post thymectomy. 3. Obesity. 4. Right hilar node. PLAN: IV steroids, inhaled bronchodilator, supplemental O2, monitor peak flow, PFT as outpatient. Followup chest CT in 2 months. If no evidence of change, will recommend PET scan. ZACH DAVID M.D. [id number] MTDD
--- NOTE | 2019-01-30 16:05 | CON.ID ---
Consult Consult Specialty:: infectious diseases Referred by:: Reason for Consultation:: cough sob, wheezing - History of Present Illness Chief Complaint: sob wheezing History of Present Illness: 53 year old male, with a significant past medical history of obesity, multiple orthopedic surgeries, (s/p thymus removal with R hemidiaphragm elevation) who presents to the emergency department with one week of chest pain, SOB, and cough. The patient states he went to [facility] twice for similar symptoms. The patient notes the first visit, he was treated with inhalers and steroids with no relief and the second visit, he was diagnosed tachycardic. The patient states that his last EKG was normal. - History Source History Provided By: Patient Limitations to Obtaining History: No Limitations - Alcohol/Substance Use Hx Alcohol Use: No - Smoking History Smoking history: Never smoked Have you smoked in the past 12 months: No Home Medications - Allergies Allergies/Adverse Reactions: Allergies Allergy/AdvReac Type Severity Reaction Status Date / Time oxycodone [From OxyContin] Allergy "water Verified 04/15/19 19:07 blisters on face" - Home Medications Home Medications: Ambulatory Orders RX: Apixaban [Eliquis -] 5 mg PO BID #60 tablet 02/06/19 Amoxicillin/Potassium Clav [Augmentin 875-125 Tablet] 1 each PO BID #28 tablet 04/15/19 Review of Systems - Review of Systems Constitutional: reports: Weakness Eyes: reports: No Symptoms HENT: reports: No Symptoms Neck: reports: No Symptoms Cardiovascular: reports: Chest Pain Respiratory: reports: Cough, SOB on Exertion, Wheezing Gastrointestinal: reports: No Symptoms Genitourinary: reports: No Symptoms Musculoskeletal: reports: No Symptoms Integumentary: reports: No Symptoms Neurological: reports: No Symptoms Endocrine: reports: No Symptoms Hematology/Lymphatic: reports: No Symptoms Psychiatric: reports: No Symptoms Physical Exam Vital Signs: Vital Signs Temperature 98.6 F 01/30/19 14:00 Pulse Rate 102 H 01/30/19 14:00 Respiratory Rate 22 H 01/30/19 14:00 Blood Pressure 161/91 01/30/19 14:00 O2 Sat by Pulse Oximetry (%) 96 01/30/19 03:30 Constitutional: Yes: Well Nourished, Calm, Mild Distress Eyes: Yes: Conjunctiva Clear HENT: Yes: Atraumatic, Normocephalic Neck: Yes: Supple, Trachea Midline Cardiovascular: Yes: Regular Rate and Rhythm Respiratory: Yes: Cough, On Nasal O2, Poor Air Entry, SOB, SOB on Exertion, Wheezes Gastrointestinal: Yes: Normal Bowel Sounds, Soft Musculoskeletal: Yes: WNL Extremities: Yes: WNL Neurological: Yes: Alert, Oriented Psychiatric: Yes: Alert, Oriented Labs: CBC, BMP 01/30/19 05:30 01/30/19 05:30 Imaging - Results Chest X-ray: Report Reviewed, Image Reviewed Cat Scan: Report Reviewed, Image Reviewed Assessment/Plan Problem List - Problems (1) Obesity Code(s): E66.9 - OBESITY, UNSPECIFIED Qualifiers: Obesity type: unspecified obesity type (2) Chest pain Code(s): R07.9 - CHEST PAIN, UNSPECIFIED Qualifiers: Chest pain type: unspecified Qualified Code(s): R07.9 - Chest pain, unspecified (3) Shortness of breath Code(s): R06.02 - SHORTNESS OF BREATH (4) Asthmatic bronchitis Code(s): J45.909 - UNSPECIFIED ASTHMA, UNCOMPLICATED Qualifiers: Asthma severity: unspecified severity Asthma persistence: unspecified Asthma complication type: uncomplicated Qualified Code(s): J45.909 - Unspecified asthma, uncomplicated (5) HTN (hypertension) Code(s): I10 - ESSENTIAL (PRIMARY) HYPERTENSION Qualifiers: Hypertension type: unspecified Qualified Code(s): I10 - Essential (primary ) hypertension (6) URI (upper respiratory infection) Assessment/Plan: on abx pr id Code(s): J06.9 - ACUTE UPPER RESPIRATORY INFECTION, UNSPECIFIED plan will start patient on abx await all reports incentive kaveh rest as per the team
--- NOTE | 2019-01-30 16:49 | PN ---
Progress Note, Physician History of Present Illness: feeling better - Current Medication List Current Medications: Active Medications Acetaminophen (Tylenol -) 650 mg PO Q6H PRN PRN Reason: FEVER Last Admin: 01/30/19 03:39 Dose: 650 mg Albuterol/Ipratropium (Duoneb -) 1 amp NEB Q4H PRN PRN Reason: SHORTNESS OF BREATH Last Admin: 01/30/19 15:23 Dose: 1 amp Heparin Sodium (Porcine) (Heparin -) 5,000 unit SQ BID TERRY Last Admin: 01/30/19 10:09 Dose: 5,000 unit Piperacillin Sod/Tazobactam (Sod 3.375 gm/ Dextrose) 50 mls @ 100 mls/hr IVPB Q8H-IV TERRY; Protocol Last Admin: 01/30/19 10:10 Dose: 100 mls/hr Piperacillin Sod/Tazobactam (Sod 3.375 gm/ Dextrose) 50 mls @ 100 mls/hr IVPB Q8H-IV TERRY; Protocol Methylprednisolone Sodium Succinate (Solu-Medrol -) 60 mg IVPUSH Q6H-IV TERRY Last Admin: 01/30/19 16:26 Dose: 60 mg - Objective Vital Signs: Vital Signs Temperature 98.6 F 01/30/19 14:00 Pulse Rate 102 H 01/30/19 14:00 Respiratory Rate 22 H 01/30/19 14:00 Blood Pressure 161/91 01/30/19 14:00 O2 Sat by Pulse Oximetry (%) 96 01/30/19 03:30 Constitutional: Yes: No Distress HENT: Yes: Atraumatic Neck: Yes: Supple Cardiovascular: Yes: Regular Rate and Rhythm Respiratory: Yes: Rhonchi, Wheezes Gastrointestinal: Yes: Normal Bowel Sounds Extremities: Yes: WNL Edema: Yes Edema: LLE: Trace, RLE: Trace Peripheral Pulses WNL: Yes Neurological: Yes: Alert, Oriented Labs: CBC, BMP 01/30/19 05:30 01/30/19 05:30 INR, PTT INR 1.12 (0.83-1.09) H 01/29/19 15:47 Problem List - Problems (1) Obesity Assessment/Plan: weight control counselling Code(s): E66.9 - OBESITY, UNSPECIFIED Qualifiers: Obesity type: unspecified obesity type (2) Chest pain Assessment/Plan: tele monitoring fu cardiac profile cardiology consult Code(s): R07.9 - CHEST PAIN, UNSPECIFIED Qualifiers: Chest pain type: unspecified Qualified Code(s): R07.9 - Chest pain, unspecified (3) Shortness of breath Assessment/Plan: iv steroids iv abx Code(s): R06.02 - SHORTNESS OF BREATH (4) Asthmatic bronchitis Code(s): J45.909 - UNSPECIFIED ASTHMA, UNCOMPLICATED Qualifiers: Asthma severity: unspecified severity Asthma persistence: unspecified Asthma complication type: uncomplicated Qualified Code(s): J45.909 - Unspecified asthma, uncomplicated (5) HTN (hypertension) Code(s): I10 - ESSENTIAL (PRIMARY) HYPERTENSION Qualifiers: Hypertension type: unspecified Qualified Code(s): I10 - Essential (primary ) hypertension (6) URI (upper respiratory infection) Assessment/Plan: on abx pr id Code(s): J06.9 - ACUTE UPPER RESPIRATORY INFECTION, UNSPECIFIED
[2019-01-30] MEDS ORDERED: hydrALAZINE HCL 20 MG/ML VIAL IVPUSH PRN (17:08)
[2019-01-30] MEDS: oxyCODONE HCL 5 MG TABLET PO PRN (21:27)
[2019-01-31] MEDS ORDERED: PIPERACILLIN/TAZOBACTAM 3.375 GM VIAL IVPB ONE ×3 (01:16→17:09)
[2019-01-31] MEDS ORDERED: DEXTROSE 5%-WATER - 50 ML IVPB ONE ×3 (01:16→17:09)
[2019-01-31] MEDS: ALBUTEROL SO4 2.5/IPRATROPIUM 0.5 INH SOL 3 ML VIAL.NEB. NEB PRN ×2 (01:35→21:00)
[2019-01-31] MEDS: PIPERACILLIN/TAZOB 3.375 GM 3.375 GM in DEXTROSE 5%-WATER - 50 ML IVPB SCH ×3 (01:53→17:58)
[2019-01-31] MEDS: oxyCODONE HCL 5 MG TABLET PO PRN ×3 (03:46→17:06)
[2019-01-31] MEDS: methylPREDNISolone NA SUCC 40 MG/1 ML VIAL IVPUSH SCH ×4 (03:47→21:47)
[2019-01-31] MEDS: HEPARIN NA (PORCINE) 5,000 UNITS/ML 1ML VIAL SQ SCH ×2 (10:14→21:47)
--- NOTE | 2019-01-31 11:17 | PN ---
Progress Note, Physician History of Present Illness: PULMONARY ALERT,FEELING BETTER LESS DYSPNEIC,LESS CONGESTED,+COUGH - Current Medication List Current Medications: Active Medications Acetaminophen (Tylenol -) 650 mg PO Q6H PRN PRN Reason: FEVER Last Admin: 01/30/19 17:38 Dose: 650 mg Albuterol/Ipratropium (Duoneb -) 1 amp NEB Q4H PRN PRN Reason: SHORTNESS OF BREATH Last Admin: 01/31/19 01:35 Dose: 1 amp Heparin Sodium (Porcine) (Heparin -) 5,000 unit SQ BID TERRY Last Admin: 01/31/19 10:14 Dose: 5,000 unit Hydralazine HCl (Apresoline Injection -) 10 mg IVPUSH Q8H PRN PRN Reason: HYPERTENSION Piperacillin Sod/Tazobactam (Sod 3.375 gm/ Dextrose) 50 mls @ 100 mls/hr IVPB Q8H-IV TERRY; Protocol Last Admin: 01/31/19 10:14 Dose: 100 mls/hr Methylprednisolone Sodium Succinate (Solu-Medrol -) 60 mg IVPUSH Q6H-IV TERRY Last Admin: 01/31/19 10:14 Dose: 60 mg Oxycodone HCl (Roxicodone -) 10 mg PO Q6H PRN PRN Reason: PAIN SCALE 4-10 Last Admin: 01/31/19 10:15 Dose: 10 mg - Objective Vital Signs: Vital Signs Temperature 98.7 F 01/31/19 10:00 Pulse Rate 106 H 01/31/19 10:00 Respiratory Rate 20 01/31/19 10:00 Blood Pressure 136/86 01/31/19 10:00 O2 Sat by Pulse Oximetry (%) 96 01/31/19 05:49 Constitutional: Yes: Well Nourished, Calm, Obese Eyes: Yes: WNL HENT: Yes: WNL Neck: Yes: WNL Cardiovascular: Yes: Regular Rate and Rhythm, S1, S2 Respiratory: Yes: Rhonchi (SCATTERED RAQUEL RHONCHI) Gastrointestinal: Yes: Normal Bowel Sounds, Soft Extremities: Yes: WNL Edema: No Labs: CBC, BMP 01/30/19 05:30 01/30/19 05:30 INR, PTT INR 1.12 (0.83-1.09) H 01/29/19 15:47 Problem List - Problems (1) Asthmatic bronchitis Code(s): J45.909 - UNSPECIFIED ASTHMA, UNCOMPLICATED Qualifiers: Asthma severity: unspecified severity Asthma persistence: unspecified Asthma complication type: uncomplicated Qualified Code(s): J45.909 - Unspecified asthma, uncomplicated (2) Obesity Code(s): E66.9 - OBESITY, UNSPECIFIED Qualifiers: Obesity type: unspecified obesity type (3) Shortness of breath Code(s): R06.02 - SHORTNESS OF BREATH Assessment/Plan IMP ASTHMATIC BRONCHITIS H/O THYMECTOMY PROMINENT R HILAR NODE PLAN IV STEROIDS INHALED BRONCHODILATORS O2 ABX PFTS OUTPATIENT F/U CHEST CT OUTPATIENT DR DAVID Problem List - Problems (1) Asthmatic bronchitis Code(s): J45.909 - UNSPECIFIED ASTHMA, UNCOMPLICATED (2) Obesity Code(s): E66.9 - OBESITY, UNSPECIFIED (3) Shortness of breath Code(s): R06.02 - SHORTNESS OF BREATH
[2019-01-31] MEDS ORDERED: guaiFENesin/D-METHORPHAN HB 10 ML UNIT-DOSE CUPS PO PRN (11:46)
--- NOTE | 2019-01-31 13:53 | PN ---
Progress Note, Physician History of Present Illness: feeling better - Current Medication List Current Medications: Active Medications Acetaminophen (Tylenol -) 650 mg PO Q6H PRN PRN Reason: FEVER Last Admin: 01/30/19 17:38 Dose: 650 mg Albuterol/Ipratropium (Duoneb -) 1 amp NEB Q4H PRN PRN Reason: SHORTNESS OF BREATH Last Admin: 01/31/19 01:35 Dose: 1 amp Guaifenesin (Robitussin Dm -) 10 ml PO Q6H PRN PRN Reason: COUGH Heparin Sodium (Porcine) (Heparin -) 5,000 unit SQ BID TERRY Last Admin: 01/31/19 10:14 Dose: 5,000 unit Hydralazine HCl (Apresoline Injection -) 10 mg IVPUSH Q8H PRN PRN Reason: HYPERTENSION Piperacillin Sod/Tazobactam (Sod 3.375 gm/ Dextrose) 50 mls @ 100 mls/hr IVPB Q8H-IV TERRY; Protocol Last Admin: 01/31/19 10:14 Dose: 100 mls/hr Methylprednisolone Sodium Succinate (Solu-Medrol -) 60 mg IVPUSH Q6H-IV TERRY Last Admin: 01/31/19 10:14 Dose: 60 mg Oxycodone HCl (Roxicodone -) 10 mg PO Q6H PRN PRN Reason: PAIN SCALE 4-10 Last Admin: 01/31/19 10:15 Dose: 10 mg - Objective Vital Signs: Vital Signs Temperature 98.7 F 01/31/19 10:00 Pulse Rate 106 H 01/31/19 10:00 Respiratory Rate 20 01/31/19 10:00 Blood Pressure 136/86 01/31/19 10:00 O2 Sat by Pulse Oximetry (%) 96 01/31/19 05:49 Constitutional: Yes: No Distress HENT: Yes: Atraumatic Neck: Yes: Supple Cardiovascular: Yes: Regular Rate and Rhythm Respiratory: Yes: Wheezes Gastrointestinal: Yes: Normal Bowel Sounds Extremities: Yes: WNL Edema: No Neurological: Yes: Alert, Oriented Labs: CBC, BMP 01/30/19 05:30 01/30/19 05:30 INR, PTT INR 1.12 (0.83-1.09) H 01/29/19 15:47 Problem List - Problems (1) Obesity Assessment/Plan: weight control counselling Code(s): E66.9 - OBESITY, UNSPECIFIED Qualifiers: Obesity type: unspecified obesity type (2) Chest pain Assessment/Plan: tele monitoring troponins negative cardiology consult Code(s): R07.9 - CHEST PAIN, UNSPECIFIED Qualifiers: Chest pain type: unspecified Qualified Code(s): R07.9 - Chest pain, unspecified (3) Shortness of breath Assessment/Plan: iv steroids iv abx Code(s): R06.02 - SHORTNESS OF BREATH (4) Asthmatic bronchitis Code(s): J45.909 - UNSPECIFIED ASTHMA, UNCOMPLICATED Qualifiers: Asthma severity: unspecified severity Asthma persistence: unspecified Asthma complication type: uncomplicated Qualified Code(s): J45.909 - Unspecified asthma, uncomplicated (5) HTN (hypertension) Assessment/Plan: monitor cardiology consul Code(s): I10 - ESSENTIAL (PRIMARY) HYPERTENSION Qualifiers: Hypertension type: essential hypertension Qualified Code(s): I10 - Essential (primary) hypertension (6) URI (upper respiratory infection) Code(s): J06.9 - ACUTE UPPER RESPIRATORY INFECTION, UNSPECIFIED
--- NOTE | 2019-01-31 14:46 | PN ---
Progress Note, Physician History of Present Illness: doing well still with wheezing says he is improving coughing - Current Medication List Current Medications: Active Medications Acetaminophen (Tylenol -) 650 mg PO Q6H PRN PRN Reason: FEVER Last Admin: 01/30/19 17:38 Dose: 650 mg Albuterol/Ipratropium (Duoneb -) 1 amp NEB Q4H PRN PRN Reason: SHORTNESS OF BREATH Last Admin: 01/31/19 01:35 Dose: 1 amp Guaifenesin (Robitussin Dm -) 10 ml PO Q6H PRN PRN Reason: COUGH Heparin Sodium (Porcine) (Heparin -) 5,000 unit SQ BID TERRY Last Admin: 01/31/19 10:14 Dose: 5,000 unit Hydralazine HCl (Apresoline Injection -) 10 mg IVPUSH Q8H PRN PRN Reason: HYPERTENSION Piperacillin Sod/Tazobactam (Sod 3.375 gm/ Dextrose) 50 mls @ 100 mls/hr IVPB Q8H-IV TERRY; Protocol Last Admin: 01/31/19 10:14 Dose: 100 mls/hr Methylprednisolone Sodium Succinate (Solu-Medrol -) 60 mg IVPUSH Q6H-IV TERRY Last Admin: 01/31/19 10:14 Dose: 60 mg Oxycodone HCl (Roxicodone -) 10 mg PO Q6H PRN PRN Reason: PAIN SCALE 4-10 Last Admin: 01/31/19 10:15 Dose: 10 mg - Objective Vital Signs: Vital Signs Temperature 98.7 F 01/31/19 10:00 Pulse Rate 106 H 01/31/19 10:00 Respiratory Rate 20 01/31/19 10:00 Blood Pressure 136/86 01/31/19 10:00 O2 Sat by Pulse Oximetry (%) 96 01/31/19 05:49 Constitutional: Yes: No Distress, Calm, Obese Cardiovascular: Yes: Regular Rate and Rhythm Respiratory: Yes: On Nasal O2, Poor Air Entry, Rhonchi, Wheezes Gastrointestinal: Yes: Normal Bowel Sounds, Soft Musculoskeletal: Yes: WNL Extremities: Yes: WNL Neurological: Yes: Alert, Oriented Psychiatric: Yes: Alert, Oriented Labs: CBC, BMP 01/30/19 05:30 01/30/19 05:30 INR, PTT INR 1.12 (0.83-1.09) H 01/29/19 15:47 Assessment/Plan Problem List - Problems (1) Obesity Code(s): E66.9 - OBESITY, UNSPECIFIED Qualifiers: Obesity type: unspecified obesity type (2) Chest pain Code(s): R07.9 - CHEST PAIN, UNSPECIFIED Qualifiers: Chest pain type: unspecified Qualified Code(s): R07.9 - Chest pain, unspecified (3) Shortness of breath Code(s): R06.02 - SHORTNESS OF BREATH (4) Asthmatic bronchitis Code(s): J45.909 - UNSPECIFIED ASTHMA, UNCOMPLICATED Qualifiers: Asthma severity: unspecified severity Asthma persistence: unspecified Asthma complication type: uncomplicated Qualified Code(s): J45.909 - Unspecified asthma, uncomplicated (5) HTN (hypertension) Code(s): I10 - ESSENTIAL (PRIMARY) HYPERTENSION Qualifiers: Hypertension type: unspecified Qualified Code(s): I10 - Essential (primary ) hypertension (6) URI (upper respiratory infection) Assessment/Plan: on abx pr id Code(s): J06.9 - ACUTE UPPER RESPIRATORY INFECTION, UNSPECIFIED plan continue abx resp support as per pul incentive kaveh
--- NOTE | 2019-01-31 14:59 | PN ---
Progress Note, Physician History of Present Illness: Cough, dyspnea, wheezing improving. - Current Medication List Current Medications: Active Medications Acetaminophen (Tylenol -) 650 mg PO Q6H PRN PRN Reason: FEVER Last Admin: 01/30/19 17:38 Dose: 650 mg Albuterol/Ipratropium (Duoneb -) 1 amp NEB Q4H PRN PRN Reason: SHORTNESS OF BREATH Last Admin: 01/31/19 01:35 Dose: 1 amp Guaifenesin (Robitussin Dm -) 10 ml PO Q6H PRN PRN Reason: COUGH Heparin Sodium (Porcine) (Heparin -) 5,000 unit SQ BID TERRY Last Admin: 01/31/19 10:14 Dose: 5,000 unit Hydralazine HCl (Apresoline Injection -) 10 mg IVPUSH Q8H PRN PRN Reason: HYPERTENSION Piperacillin Sod/Tazobactam (Sod 3.375 gm/ Dextrose) 50 mls @ 100 mls/hr IVPB Q8H-IV TERRY; Protocol Last Admin: 01/31/19 10:14 Dose: 100 mls/hr Methylprednisolone Sodium Succinate (Solu-Medrol -) 60 mg IVPUSH Q6H-IV TERRY Last Admin: 01/31/19 10:14 Dose: 60 mg Oxycodone HCl (Roxicodone -) 10 mg PO Q6H PRN PRN Reason: PAIN SCALE 4-10 Last Admin: 01/31/19 10:15 Dose: 10 mg - Objective Vital Signs: Vital Signs Temperature 98.7 F 01/31/19 10:00 Pulse Rate 106 H 01/31/19 10:00 Respiratory Rate 20 01/31/19 10:00 Blood Pressure 136/86 01/31/19 10:00 O2 Sat by Pulse Oximetry (%) 96 01/31/19 05:49 Constitutional: Yes: No Distress, Calm Neck: Yes: Supple Cardiovascular: Yes: Regular Rate and Rhythm Respiratory: Yes: Regular, Cough, Diminished, On Nasal O2, SOB, Wheezes Gastrointestinal: Yes: Normal Bowel Sounds, Soft, Abdomen, Obese Edema: No Labs: CBC, BMP 01/30/19 05:30 01/30/19 05:30 INR, PTT INR 1.12 (0.83-1.09) H 01/29/19 15:47 - ....Imaging EKG: Report Reviewed (Tele: NSR) Problem List - Problems (1) Asthmatic bronchitis Code(s): J45.909 - UNSPECIFIED ASTHMA, UNCOMPLICATED Qualifiers: Asthma severity: unspecified severity Asthma persistence: unspecified Asthma complication type: uncomplicated Qualified Code(s): J45.909 - Unspecified asthma, uncomplicated (2) Chest pain Code(s): R07.9 - CHEST PAIN, UNSPECIFIED Qualifiers: Chest pain type: unspecified Qualified Code(s): R07.9 - Chest pain, unspecified (3) HTN (hypertension) Code(s): I10 - ESSENTIAL (PRIMARY) HYPERTENSION Qualifiers: Hypertension type: essential hypertension Qualified Code(s): I10 - Essential (primary) hypertension (4) Obesity Code(s): E66.9 - OBESITY, UNSPECIFIED Qualifiers: Obesity type: unspecified obesity type (5) Right bundle branch block Code(s): I45.10 - UNSPECIFIED RIGHT BUNDLE-BRANCH BLOCK Assessment/Plan 01/30/2019 Echocardiography report notes calcific density in the left atrium and suggested DANAY to clarify. LVEF 60% 1. Chest pain. SOB and cough referable to asthmatic bronchitis 2. Abnormal ECG with RBBB 3. Prominent right hilar lymph node 4. HTN 5. s/p thymectomy 6. ? LA mass PLAN: 1. Add losartan 25 qd for BP control, IV hydralazine prn 2. Bronchodilator, empiric antibiotics, IV steroids taper and O2 3. Pulmonary input to follow regarding hilar LN which may be due to URI, but if persistent may need further evaluation to rule out malignancy 4. DANAY once pulm status improves
[2019-01-31] MEDS: LOSARTAN POTASSIUM 25 MG TABLET PO SCH (15:37)
[2019-02-01] MEDS ORDERED: PIPERACILLIN/TAZOBACTAM 3.375 GM VIAL IVPB ONE ×3 (01:29→18:07)
[2019-02-01] MEDS ORDERED: DEXTROSE 5%-WATER - 50 ML IVPB ONE ×3 (01:29→18:07)
[2019-02-01] MEDS: oxyCODONE HCL 5 MG TABLET PO PRN ×3 (01:34→23:01)
[2019-02-01] MEDS: PIPERACILLIN/TAZOB 3.375 GM 3.375 GM in DEXTROSE 5%-WATER - 50 ML IVPB SCH ×3 (01:34→18:22)
[2019-02-01] MEDS: ACETAMINOPHEN 325 MG TABLET (FP) PO PRN ×3 (01:35→23:00)
[2019-02-01] MEDS ORDERED: HEPARIN NA (PORCINE) 5,000 UNITS/ML 1ML VIAL IVPUSH ONE (02:48)
[2019-02-01] MEDS ORDERED: HEPARIN NA (PORCINE) 5,000 UNITS/ML 1ML VIAL IVPUSH PRN (02:48)
[2019-02-01] MEDS: HEPARIN INFUSION - 25,000 UNITS/500 ML INFUS.BAG IVPB SCH (02:57)
[2019-02-01] MEDS ORDERED: dilTIAZem HCL 50 MG/10 ML - 10 ML VIAL IVPUSH ONE (03:00)
[2019-02-01] MEDS: methylPREDNISolone NA SUCC 40 MG/1 ML VIAL IVPUSH SCH ×3 (03:03→18:22)
[2019-02-01] MEDS: LOSARTAN POTASSIUM 25 MG TABLET PO SCH (09:34)
--- NOTE | 2019-02-01 10:43 | PN ---
Progress Note, Physician History of Present Illness: Cough, dyspnea, wheezing improving. PAT vs MAT on telemetry? - Current Medication List Current Medications: Active Medications Acetaminophen (Tylenol -) 650 mg PO Q6H PRN PRN Reason: FEVER Last Admin: 02/01/19 09:35 Dose: 650 mg Albuterol/Ipratropium (Duoneb -) 1 amp NEB Q4H PRN PRN Reason: SHORTNESS OF BREATH Last Admin: 01/31/19 21:00 Dose: 1 amp Guaifenesin (Robitussin Dm -) 10 ml PO Q6H PRN PRN Reason: COUGH Heparin Sodium (Porcine) (Heparin -) 5,000 unit IVPUSH PRN PRN PRN Reason: Heparin Heparin Sodium (Porcine) (Heparin -) 1,000 unit IVPUSH PRN PRN PRN Reason: Heparin Hydralazine HCl (Apresoline Injection -) 10 mg IVPUSH Q8H PRN PRN Reason: HYPERTENSION Piperacillin Sod/Tazobactam (Sod 3.375 gm/ Dextrose) 50 mls @ 100 mls/hr IVPB Q8H-IV TERRY; Protocol Last Admin: 02/01/19 09:27 Dose: 100 mls/hr Heparin Sodium/Dextrose (Heparin Infusion -) 25,000 units in 500 mls @ 20 mls/ hr IVPB TITR TERRY; Protocol Last Admin: 02/01/19 02:57 Dose: 1,000 units/hr, 20 mls/hr Losartan Potassium (Cozaar -) 25 mg PO DAILY TERRY Last Admin: 02/01/19 09:34 Dose: 25 mg Methylprednisolone Sodium Succinate (Solu-Medrol -) 60 mg IVPUSH Q6H-IV TERRY Last Admin: 02/01/19 09:33 Dose: 60 mg Oxycodone HCl (Roxicodone -) 10 mg PO Q6H PRN PRN Reason: PAIN SCALE 4-10 Last Admin: 02/01/19 09:34 Dose: 10 mg - Objective Vital Signs: Vital Signs Temperature 98.4 F 02/01/19 06:00 Pulse Rate 121 H 02/01/19 06:00 Respiratory Rate 20 02/01/19 06:00 Blood Pressure 141/85 02/01/19 06:00 O2 Sat by Pulse Oximetry (%) 97 02/01/19 06:00 Constitutional: Yes: No Distress, Calm Neck: Yes: Supple Cardiovascular: Yes: Regular Rate and Rhythm, Tachycardia Respiratory: Yes: Regular, Diminished, On Nasal O2 Gastrointestinal: Yes: Normal Bowel Sounds, Soft, Abdomen, Obese Edema: No Labs: CBC, BMP 01/30/19 05:30 01/30/19 05:30 INR, PTT INR 1.12 (0.83-1.09) H 01/29/19 15:47 - ....Imaging EKG: Report Reviewed (Tele: ? MAT) Problem List - Problems (1) Asthmatic bronchitis Code(s): J45.909 - UNSPECIFIED ASTHMA, UNCOMPLICATED Qualifiers: Asthma severity: unspecified severity Asthma persistence: unspecified Asthma complication type: uncomplicated Qualified Code(s): J45.909 - Unspecified asthma, uncomplicated (2) Chest pain Code(s): R07.9 - CHEST PAIN, UNSPECIFIED Qualifiers: Chest pain type: unspecified Qualified Code(s): R07.9 - Chest pain, unspecified (3) HTN (hypertension) Code(s): I10 - ESSENTIAL (PRIMARY) HYPERTENSION Qualifiers: Hypertension type: essential hypertension Qualified Code(s): I10 - Essential (primary) hypertension (4) Obesity Code(s): E66.9 - OBESITY, UNSPECIFIED Qualifiers: Obesity type: unspecified obesity type (5) Right bundle branch block Code(s): I45.10 - UNSPECIFIED RIGHT BUNDLE-BRANCH BLOCK Assessment/Plan 01/30/2019 Echocardiography report notes calcific density in the left atrium and suggested DANAY to clarify. LVEF 60% 1. Chest pain. SOB and cough referable to asthmatic bronchitis 2. Abnormal ECG with RBBB, ? MAT vs. PAT 3. Prominent right hilar lymph node 4. HTN 5. s/p thymectomy 6. ? LA mass PLAN: 1. Change losartan 25 qd to Cardizem CD 120 qd for BP control, IV hydralazine prn, check ECG 2. Bronchodilator, empiric antibiotics, IV steroids taper and O2, placed on heparin gtt 3. Pulmonary input to follow regarding hilar LN which may be due to URI, but if persistent may need further evaluation to rule out malignancy 4. DANAY once pulm status improves
--- NOTE | 2019-02-01 12:26 | PN ---
Progress Note, Physician History of Present Illness: PULMONARY ALERT,FEELING BETTET,LESS DYSPNEIC - Current Medication List Current Medications: Active Medications Acetaminophen (Tylenol -) 650 mg PO Q6H PRN PRN Reason: FEVER Last Admin: 02/01/19 09:35 Dose: 650 mg Albuterol/Ipratropium (Duoneb -) 1 amp NEB Q4H PRN PRN Reason: SHORTNESS OF BREATH Last Admin: 01/31/19 21:00 Dose: 1 amp Diltiazem HCl (Cardizem Cd -) 120 mg PO DAILY TERRY Guaifenesin (Robitussin Dm -) 10 ml PO Q6H PRN PRN Reason: COUGH Heparin Sodium (Porcine) (Heparin -) 5,000 unit IVPUSH PRN PRN PRN Reason: Heparin Heparin Sodium (Porcine) (Heparin -) 1,000 unit IVPUSH PRN PRN PRN Reason: Heparin Hydralazine HCl (Apresoline Injection -) 10 mg IVPUSH Q8H PRN PRN Reason: HYPERTENSION Piperacillin Sod/Tazobactam (Sod 3.375 gm/ Dextrose) 50 mls @ 100 mls/hr IVPB Q8H-IV TERRY; Protocol Last Admin: 02/01/19 09:27 Dose: 100 mls/hr Heparin Sodium/Dextrose (Heparin Infusion -) 25,000 units in 500 mls @ 20 mls/ hr IVPB TITR TERRY; Protocol Last Admin: 02/01/19 02:57 Dose: 1,000 units/hr, 20 mls/hr Methylprednisolone Sodium Succinate (Solu-Medrol -) 60 mg IVPUSH Q6H-IV TERRY Last Admin: 02/01/19 09:33 Dose: 60 mg Oxycodone HCl (Roxicodone -) 10 mg PO Q6H PRN PRN Reason: PAIN SCALE 4-10 Last Admin: 02/01/19 09:34 Dose: 10 mg - Objective Vital Signs: Vital Signs Temperature 97.5 F L 02/01/19 10:00 Pulse Rate 135 H 02/01/19 10:00 Respiratory Rate 20 02/01/19 10:00 Blood Pressure 132/76 02/01/19 10:00 O2 Sat by Pulse Oximetry (%) 97 02/01/19 06:00 Constitutional: Yes: Calm, Obese Eyes: Yes: WNL HENT: Yes: WNL Neck: Yes: WNL Cardiovascular: Yes: Regular Rate and Rhythm, S1, S2 Respiratory: Yes: Wheezes (FEW WHEEZES) Gastrointestinal: Yes: Normal Bowel Sounds, Soft Extremities: Yes: WNL Edema: No Labs: CBC, BMP 01/30/19 05:30 01/30/19 05:30 INR, PTT INR 1.12 (0.83-1.09) H 01/29/19 15:47 Problem List - Problems (1) Asthmatic bronchitis Code(s): J45.909 - UNSPECIFIED ASTHMA, UNCOMPLICATED Qualifiers: Asthma severity: unspecified severity Asthma persistence: unspecified Asthma complication type: uncomplicated Qualified Code(s): J45.909 - Unspecified asthma, uncomplicated (2) Obesity Code(s): E66.9 - OBESITY, UNSPECIFIED Qualifiers: Obesity type: unspecified obesity type (3) Shortness of breath Code(s): R06.02 - SHORTNESS OF BREATH Assessment/Plan IMP ASTHMATIC BRONCHITIS H/O THYMECTOMY PROMINENT R HILAR NODE PLAN TAPER IV STEROIDS INHALED BRONCHODILATORS O2 ABX PFTS OUTPATIENT F/U CHEST CT OUTPATIENT 6-8 WKS IF NO CHANGE HILAR NODE WILL OBTAIN PET DANAY PER CARDIOLOGY DR DAVID Problem List - Problems (1) Asthmatic bronchitis Code(s): J45.909 - UNSPECIFIED ASTHMA, UNCOMPLICATED (2) Obesity Code(s): E66.9 - OBESITY, UNSPECIFIED (3) Shortness of breath Code(s): R06.02 - SHORTNESS OF BREATH
[2019-02-01] MEDS: HEPARIN NA (PORCINE) 5,000 UNITS/ML 1ML VIAL IVPUSH PRN (12:36)
--- NOTE | 2019-02-01 15:46 | PN ---
Progress Note, Physician History of Present Illness: continues to improve breathing well still with cough - Current Medication List Current Medications: Active Medications Acetaminophen (Tylenol -) 650 mg PO Q6H PRN PRN Reason: FEVER Last Admin: 02/01/19 09:35 Dose: 650 mg Albuterol/Ipratropium (Duoneb -) 1 amp NEB Q4H PRN PRN Reason: SHORTNESS OF BREATH Last Admin: 01/31/19 21:00 Dose: 1 amp Diltiazem HCl (Cardizem Cd -) 120 mg PO DAILY TERRY Last Admin: 02/01/19 12:35 Dose: 120 mg Guaifenesin (Robitussin Dm -) 10 ml PO Q6H PRN PRN Reason: COUGH Heparin Sodium (Porcine) (Heparin -) 5,000 unit IVPUSH PRN PRN PRN Reason: Heparin Last Admin: 02/01/19 12:36 Dose: 5,000 unit Heparin Sodium (Porcine) (Heparin -) 1,000 unit IVPUSH PRN PRN PRN Reason: Heparin Hydralazine HCl (Apresoline Injection -) 10 mg IVPUSH Q8H PRN PRN Reason: HYPERTENSION Piperacillin Sod/Tazobactam (Sod 3.375 gm/ Dextrose) 50 mls @ 100 mls/hr IVPB Q8H-IV TERRY; Protocol Last Admin: 02/01/19 09:27 Dose: 100 mls/hr Heparin Sodium/Dextrose (Heparin Infusion -) 25,000 units in 500 mls @ 20 mls/ hr IVPB TITR TERRY; Protocol Last Titration: 02/01/19 12:36 Dose: 1,150 units/hr, 23 mls/hr Methylprednisolone Sodium Succinate (Solu-Medrol -) 60 mg IVPUSH Q8H-IV TERRY Oxycodone HCl (Roxicodone -) 10 mg PO Q6H PRN PRN Reason: PAIN SCALE 4-10 Last Admin: 02/01/19 09:34 Dose: 10 mg - Objective Vital Signs: Vital Signs Temperature 98 F 02/01/19 14:15 Pulse Rate 103 H 02/01/19 14:15 Respiratory Rate 17 02/01/19 14:15 Blood Pressure 128/74 02/01/19 14:15 O2 Sat by Pulse Oximetry (%) 97 02/01/19 06:00 Constitutional: Yes: No Distress, Calm Cardiovascular: Yes: Regular Rate and Rhythm Respiratory: Yes: Regular, Rhonchi Gastrointestinal: Yes: Normal Bowel Sounds, Soft Musculoskeletal: Yes: WNL Extremities: Yes: WNL Neurological: Yes: Alert, Oriented Psychiatric: Yes: Alert, Oriented Labs: CBC, BMP 01/30/19 05:30 01/30/19 05:30 INR, PTT INR 1.12 (0.83-1.09) H 01/29/19 15:47 Assessment/Plan Problem List - Problems (1) Obesity Code(s): E66.9 - OBESITY, UNSPECIFIED Qualifiers: Obesity type: unspecified obesity type (2) Chest pain Code(s): R07.9 - CHEST PAIN, UNSPECIFIED Qualifiers: Chest pain type: unspecified Qualified Code(s): R07.9 - Chest pain, unspecified (3) Shortness of breath Code(s): R06.02 - SHORTNESS OF BREATH (4) Asthmatic bronchitis Code(s): J45.909 - UNSPECIFIED ASTHMA, UNCOMPLICATED Qualifiers: Asthma severity: unspecified severity Asthma persistence: unspecified Asthma complication type: uncomplicated Qualified Code(s): J45.909 - Unspecified asthma, uncomplicated (5) HTN (hypertension) Code(s): I10 - ESSENTIAL (PRIMARY) HYPERTENSION Qualifiers: Hypertension type: unspecified Qualified Code(s): I10 - Essential (primary ) hypertension (6) URI (upper respiratory infection) Assessment/Plan: on abx pr id Code(s): J06.9 - ACUTE UPPER RESPIRATORY INFECTION, UNSPECIFIED plan continue abx resp support as per pul incentive kaveh
--- NOTE | 2019-02-01 15:49 | EKG ---
Test Reason : Blood Pressure : / mmHG Vent. Rate : 132 BPM Atrial Rate : 192 BPM P-R Int : 000 ms QRS Dur : 132 ms QT Int : 334 ms P-R-T Axes : 000 -39 -07 degrees QTc Int : 494 ms POOR DATA QUALITY, INTERPRETATION MAY BE ADVERSELY AFFECTED ATRIAL FIBRILLATION WITH RAPID VENTRICULAR RESPONSE LEFT AXIS DEVIATION RIGHT BUNDLE BRANCH BLOCK ABNORMAL ECG WHEN COMPARED WITH ECG OF 29-JAN-2019 14:56, ATRIAL FIBRILLATION HAS REPLACED SINUS RHYTHM VENT. RATE HAS INCREASED BY 46 BPM Confirmed by ANTHONY GONZALEZ MD ([id number]) on 02/01/2019 3:49:32 PM Referred By: [facility] Confirmed By:ANTHONY GONZALEZ MD
--- NOTE | 2019-02-01 18:58 | PN ---
Progress Note, Physician - Current Medication List Current Medications: Active Medications Acetaminophen (Tylenol -) 650 mg PO Q6H PRN PRN Reason: FEVER Last Admin: 02/01/19 09:35 Dose: 650 mg Albuterol/Ipratropium (Duoneb -) 1 amp NEB Q4H PRN PRN Reason: SHORTNESS OF BREATH Last Admin: 01/31/19 21:00 Dose: 1 amp Diltiazem HCl (Cardizem Cd -) 120 mg PO DAILY TRERY Last Admin: 02/01/19 12:35 Dose: 120 mg Guaifenesin (Robitussin Dm -) 10 ml PO Q6H PRN PRN Reason: COUGH Heparin Sodium (Porcine) (Heparin -) 5,000 unit IVPUSH PRN PRN PRN Reason: Heparin Last Admin: 02/01/19 12:36 Dose: 5,000 unit Heparin Sodium (Porcine) (Heparin -) 1,000 unit IVPUSH PRN PRN PRN Reason: Heparin Hydralazine HCl (Apresoline Injection -) 10 mg IVPUSH Q8H PRN PRN Reason: HYPERTENSION Piperacillin Sod/Tazobactam (Sod 3.375 gm/ Dextrose) 50 mls @ 100 mls/hr IVPB Q8H-IV TERRY; Protocol Last Admin: 02/01/19 18:22 Dose: 100 mls/hr Heparin Sodium/Dextrose (Heparin Infusion -) 25,000 units in 500 mls @ 20 mls/ hr IVPB TITR TERRY; Protocol Last Titration: 02/01/19 12:36 Dose: 1,150 units/hr, 23 mls/hr Methylprednisolone Sodium Succinate (Solu-Medrol -) 60 mg IVPUSH Q8H-IV TERRY Last Admin: 02/01/19 18:22 Dose: 60 mg Oxycodone HCl (Roxicodone -) 10 mg PO Q6H PRN PRN Reason: PAIN SCALE 4-10 Last Admin: 02/01/19 09:34 Dose: 10 mg - Objective Vital Signs: Vital Signs Temperature 98 F 02/01/19 14:15 Pulse Rate 103 H 02/01/19 14:15 Respiratory Rate 17 02/01/19 14:15 Blood Pressure 128/74 02/01/19 14:15 O2 Sat by Pulse Oximetry (%) 97 02/01/19 06:00 Constitutional: Yes: No Distress HENT: Yes: Atraumatic Neck: Yes: Supple Cardiovascular: Yes: Pulse Irregular Respiratory: Yes: CTA Bilaterally, Rhonchi Gastrointestinal: Yes: Normal Bowel Sounds Extremities: Yes: WNL Edema: Yes Edema: LLE: Trace, RLE: Trace Peripheral Pulses WNL: Yes Neurological: Yes: Alert, Oriented Labs: CBC, BMP 01/30/19 05:30 01/30/19 05:30 INR, PTT INR 1.12 (0.83-1.09) H 01/29/19 15:47 Problem List - Problems (1) Obesity Assessment/Plan: weight control counselling Code(s): E66.9 - OBESITY, UNSPECIFIED Qualifiers: Obesity type: unspecified obesity type (2) Chest pain Assessment/Plan: tele monitoring troponins negative cardiology consult Code(s): R07.9 - CHEST PAIN, UNSPECIFIED Qualifiers: Chest pain type: unspecified Qualified Code(s): R07.9 - Chest pain, unspecified (3) Shortness of breath Code(s): R06.02 - SHORTNESS OF BREATH (4) Asthmatic bronchitis Code(s): J45.909 - UNSPECIFIED ASTHMA, UNCOMPLICATED Qualifiers: Asthma severity: unspecified severity Asthma persistence: unspecified Asthma complication type: uncomplicated Qualified Code(s): J45.909 - Unspecified asthma, uncomplicated (5) HTN (hypertension) Assessment/Plan: monitor cardiology consul Code(s): I10 - ESSENTIAL (PRIMARY) HYPERTENSION Qualifiers: Hypertension type: essential hypertension Qualified Code(s): I10 - Essential (primary) hypertension (6) URI (upper respiratory infection) Assessment/Plan: on abx pr id Code(s): J06.9 - ACUTE UPPER RESPIRATORY INFECTION, UNSPECIFIED
[2019-02-01] MEDS ORDERED: dilTIAZem HCL 25 MG/5 ML - 5 ML VIAL IVPUSH PRN (23:22)
[2019-02-02] MEDS ORDERED: PIPERACILLIN/TAZOBACTAM 3.375 GM VIAL IVPB ONE ×2 (02:05→08:39)
[2019-02-02] MEDS ORDERED: DEXTROSE 5%-WATER - 50 ML IVPB ONE ×2 (02:06→08:39)
[2019-02-02] MEDS: HEPARIN INFUSION - 25,000 UNITS/500 ML INFUS.BAG IVPB SCH (02:32)
[2019-02-02] MEDS: methylPREDNISolone NA SUCC 40 MG/1 ML VIAL IVPUSH SCH ×3 (02:32→17:46)
[2019-02-02] MEDS: PIPERACILLIN/TAZOB 3.375 GM 3.375 GM in DEXTROSE 5%-WATER - 50 ML IVPB SCH ×2 (02:32→10:22)
[2019-02-02] MEDS: ALBUTEROL SO4 2.5/IPRATROPIUM 0.5 INH SOL 3 ML VIAL.NEB. NEB PRN (03:36)
--- NOTE | 2019-02-02 10:11 | PN ---
Progress Note, Physician History of Present Illness: Cough, dyspnea, wheezing improving. Rapid afib on telemetry requiring IV cardizem for rate-control, denies chest pain, palpitations, near syncope. - Current Medication List Current Medications: Active Medications Acetaminophen (Tylenol -) 650 mg PO Q6H PRN PRN Reason: FEVER Last Admin: 02/01/19 23:00 Dose: 650 mg Albuterol/Ipratropium (Duoneb -) 1 amp NEB Q4H PRN PRN Reason: SHORTNESS OF BREATH Last Admin: 02/02/19 03:36 Dose: 1 amp Diltiazem HCl (Cardizem Cd -) 120 mg PO DAILY TERRY Last Admin: 02/01/19 12:35 Dose: 120 mg Diltiazem HCl (Cardizem Injection -) 10 mg IVPUSH Q4H PRN PRN Reason: FOR HR>120 Last Admin: 02/02/19 00:39 Dose: 10 mg Guaifenesin (Robitussin Dm -) 10 ml PO Q6H PRN PRN Reason: COUGH Heparin Sodium (Porcine) (Heparin -) 5,000 unit IVPUSH PRN PRN PRN Reason: Heparin Last Admin: 02/01/19 12:36 Dose: 5,000 unit Heparin Sodium (Porcine) (Heparin -) 1,000 unit IVPUSH PRN PRN PRN Reason: Heparin Hydralazine HCl (Apresoline Injection -) 10 mg IVPUSH Q8H PRN PRN Reason: HYPERTENSION Piperacillin Sod/Tazobactam (Sod 3.375 gm/ Dextrose) 50 mls @ 100 mls/hr IVPB Q8H-IV TERRY; Protocol Last Admin: 02/02/19 02:32 Dose: 100 mls/hr Heparin Sodium/Dextrose (Heparin Infusion -) 25,000 units in 500 mls @ 20 mls/ hr IVPB TITR TERRY; Protocol Last Admin: 02/02/19 02:32 Dose: 1,150 units/hr, 23 mls/hr Methylprednisolone Sodium Succinate (Solu-Medrol -) 60 mg IVPUSH Q8H-IV TERRY Last Admin: 02/02/19 02:32 Dose: 60 mg Oxycodone HCl (Roxicodone -) 10 mg PO Q6H PRN PRN Reason: PAIN SCALE 4-10 Last Admin: 02/01/19 23:01 Dose: 10 mg - Objective Vital Signs: Vital Signs Temperature 97.9 F 02/02/19 04:00 Pulse Rate 118 H 02/02/19 04:00 Respiratory Rate 18 02/02/19 08:03 Blood Pressure 110/68 02/02/19 04:00 O2 Sat by Pulse Oximetry (%) 98 02/02/19 08:03 Constitutional: Yes: No Distress, Calm Neck: Yes: Supple Cardiovascular: Yes: Tachycardia, Pulse Irregular Respiratory: Yes: Regular, Diminished Gastrointestinal: Yes: Normal Bowel Sounds, Soft, Abdomen, Obese Edema: No Labs: CBC, BMP 01/30/19 05:30 01/30/19 05:30 INR, PTT INR 1.12 (0.83-1.09) H 01/29/19 15:47 - ....Imaging EKG: Report Reviewed (EKG Afib @ 132 LAD RBBB) Problem List - Problems (1) Asthmatic bronchitis Code(s): J45.909 - UNSPECIFIED ASTHMA, UNCOMPLICATED Qualifiers: Asthma severity: unspecified severity Asthma persistence: unspecified Asthma complication type: uncomplicated Qualified Code(s): J45.909 - Unspecified asthma, uncomplicated (2) Chest pain Code(s): R07.9 - CHEST PAIN, UNSPECIFIED Qualifiers: Chest pain type: unspecified Qualified Code(s): R07.9 - Chest pain, unspecified (3) HTN (hypertension) Code(s): I10 - ESSENTIAL (PRIMARY) HYPERTENSION Qualifiers: Hypertension type: essential hypertension Qualified Code(s): I10 - Essential (primary) hypertension (4) Obesity Code(s): E66.9 - OBESITY, UNSPECIFIED Qualifiers: Obesity type: unspecified obesity type (5) Right bundle branch block Code(s): I45.10 - UNSPECIFIED RIGHT BUNDLE-BRANCH BLOCK (6) Paroxysmal atrial fibrillation with rapid ventricular response Code(s): I48.0 - PAROXYSMAL ATRIAL FIBRILLATION Assessment/Plan 01/30/2019 Echocardiography report notes calcific density in the left atrium and suggested DANAY to clarify. LVEF 60% 1. Chest pain. SOB and cough referable to asthmatic bronchitis 2. Abnormal ECG with RBBB, PAF with RVR [id number] 3. Prominent right hilar lymph node 4. HTN 5. s/p thymectomy 6. ? LA mass PLAN: 1. Start Cardizem gtt for rate-control, IV hydralazine prn HTN 2. Bronchodilator, empiric antibiotics, IV steroids taper and O2, heparin gtt 3. Pulmonary input to follow regarding hilar LN which may be due to URI, but if persistent may need further evaluation to rule out malignancy 4. DANAY +/- DCCV once pulm status improves
[2019-02-02] MEDS: HEPARIN NA (PORCINE) 5,000 UNITS/ML 1ML VIAL IVPUSH PRN (10:23)
[2019-02-02] MEDS: oxyCODONE HCL 5 MG TABLET PO PRN ×3 (10:24→22:59)
[2019-02-02] MEDS: ACETAMINOPHEN 325 MG TABLET (FP) PO PRN ×3 (10:24→22:58)
[2019-02-02] MEDS ORDERED: dilTIAZem HCL 50 MG/10 ML - 10 ML VIAL IVPUSH ONE (11:49)
--- NOTE | 2019-02-02 12:23 | PN ---
Progress Note (short form) - Note Progress Note: PULMONARY PATIENT REPORTS SUPINE WHEEZE HR 150'S Constitutional: Yes: Calm, Obese Eyes: Yes: WNL HENT: Yes: WNL Neck: Yes: WNL Cardiovascular: S1, S2 RAPID/IRREGULAR Respiratory: Yes: Wheezes (FEW WHEEZES) Gastrointestinal: Yes: Normal Bowel Sounds, Soft Extremities: Yes: WNL Edema: No Labs: NOTED Cardio note/plan reviewed IMP ASTHMATIC BRONCHITIS RAPID A.FIB H/O THYMECTOMY PROMINENT R HILAR NODE PLAN RATE CONTROL TAPER IV STEROIDS BRONCHODILATORS NEEDED O2 ABX PFTS OUTPATIENT F/U CHEST CT OUTPATIENT 6-8 WKS IF NO CHANGE HILAR NODE WILL OBTAIN PET DANAY PER CARDIOLOGY César BUCKNER MD
--- NOTE | 2019-02-02 14:21 | PN ---
Progress Note, Physician History of Present Illness: patient stable no new issues - Current Medication List Current Medications: Active Medications Acetaminophen (Tylenol -) 650 mg PO Q6H PRN PRN Reason: FEVER Last Admin: 02/02/19 10:24 Dose: 650 mg Albuterol/Ipratropium (Duoneb -) 1 amp NEB Q4H PRN PRN Reason: SHORTNESS OF BREATH Last Admin: 02/02/19 03:36 Dose: 1 amp Guaifenesin (Robitussin Dm -) 10 ml PO Q6H PRN PRN Reason: COUGH Heparin Sodium (Porcine) (Heparin -) 5,000 unit IVPUSH PRN PRN PRN Reason: Heparin Last Admin: 02/02/19 10:23 Dose: 5,000 unit Heparin Sodium (Porcine) (Heparin -) 1,000 unit IVPUSH PRN PRN PRN Reason: Heparin Hydralazine HCl (Apresoline Injection -) 10 mg IVPUSH Q8H PRN PRN Reason: HYPERTENSION Heparin Sodium/Dextrose (Heparin Infusion -) 25,000 units in 500 mls @ 20 mls/ hr IVPB TITR TERRY; Protocol Last Titration: 02/02/19 10:26 Dose: 1,300 units/hr, 26 mls/hr Diltiazem HCl 125 mg/ Sodium (Chloride) 125 mls @ 5 mls/hr IVPB TITR TERRY; Protocol Methylprednisolone Sodium Succinate (Solu-Medrol -) 20 mg IVPUSH Q8H-IV TERRY Oxycodone HCl (Roxicodone -) 10 mg PO Q6H PRN PRN Reason: PAIN SCALE 4-10 Last Admin: 02/02/19 10:24 Dose: 10 mg - Objective Vital Signs: Vital Signs Temperature 98.0 F 02/02/19 08:00 Pulse Rate 76 02/02/19 08:00 Respiratory Rate 18 02/02/19 08:03 Blood Pressure 125/80 02/02/19 08:00 O2 Sat by Pulse Oximetry (%) 98 02/02/19 08:03 Constitutional: Yes: No Distress, Calm Cardiovascular: Yes: Regular Rate and Rhythm Respiratory: Yes: Regular, CTA Bilaterally Gastrointestinal: Yes: Normal Bowel Sounds, Soft Musculoskeletal: Yes: WNL Extremities: Yes: WNL Neurological: Yes: Alert, Oriented Psychiatric: Yes: Alert, Oriented Labs: CBC, BMP 01/30/19 05:30 01/30/19 05:30 INR, PTT INR 1.12 (0.83-1.09) H 01/29/19 15:47 Assessment/Plan Problem List - Problems (1) Obesity Code(s): E66.9 - OBESITY, UNSPECIFIED Qualifiers: Obesity type: unspecified obesity type (2) Chest pain Code(s): R07.9 - CHEST PAIN, UNSPECIFIED Qualifiers: Chest pain type: unspecified Qualified Code(s): R07.9 - Chest pain, unspecified (3) Shortness of breath Code(s): R06.02 - SHORTNESS OF BREATH (4) Asthmatic bronchitis Code(s): J45.909 - UNSPECIFIED ASTHMA, UNCOMPLICATED Qualifiers: Asthma severity: unspecified severity Asthma persistence: unspecified Asthma complication type: uncomplicated Qualified Code(s): J45.909 - Unspecified asthma, uncomplicated (5) HTN (hypertension) Code(s): I10 - ESSENTIAL (PRIMARY) HYPERTENSION Qualifiers: Hypertension type: unspecified Qualified Code(s): I10 - Essential (primary ) hypertension (6) URI (upper respiratory infection) Assessment/Plan: on abx pr id Code(s): J06.9 - ACUTE UPPER RESPIRATORY INFECTION, UNSPECIFIED plan will change to oral abx incentive kaveh rest as per the team patient improving
[2019-02-02] MEDS: DILTIAZEM INJECTION 125 MG in SODIUM CHLORIDE 100 ML IVPB SCH (14:31)
[2019-02-02] MEDS: AMOX TR/POT CLAV 875MG/125MG TABLETS (FP) PO SCH (17:32)
--- NOTE | 2019-02-02 17:52 | PN ---
Progress Note, Physician History of Present Illness: feeling better - Current Medication List Current Medications: Active Medications Acetaminophen (Tylenol -) 650 mg PO Q6H PRN PRN Reason: FEVER Last Admin: 02/02/19 17:33 Dose: 650 mg Albuterol/Ipratropium (Duoneb -) 1 amp NEB Q4H PRN PRN Reason: SHORTNESS OF BREATH Last Admin: 02/02/19 03:36 Dose: 1 amp Amoxicillin/Clavulanate Potassium (Augmentin - 875mg Tablet) 1 tab PO BID@0800, 1730 TERRY Last Admin: 02/02/19 17:32 Dose: 1 tab Guaifenesin (Robitussin Dm -) 10 ml PO Q6H PRN PRN Reason: COUGH Heparin Sodium (Porcine) (Heparin -) 5,000 unit IVPUSH PRN PRN PRN Reason: Heparin Last Admin: 02/02/19 10:23 Dose: 5,000 unit Heparin Sodium (Porcine) (Heparin -) 1,000 unit IVPUSH PRN PRN PRN Reason: Heparin Hydralazine HCl (Apresoline Injection -) 10 mg IVPUSH Q8H PRN PRN Reason: HYPERTENSION Heparin Sodium/Dextrose (Heparin Infusion -) 25,000 units in 500 mls @ 20 mls/ hr IVPB TITR TERRY; Protocol Last Titration: 02/02/19 10:26 Dose: 1,300 units/hr, 26 mls/hr Diltiazem HCl 125 mg/ Sodium (Chloride) 125 mls @ 5 mls/hr IVPB TITR TERRY; Protocol Last Admin: 02/02/19 14:31 Dose: 5 mg/hr, 5 mls/hr Methylprednisolone Sodium Succinate (Solu-Medrol -) 20 mg IVPUSH Q8H-IV TERRY Last Admin: 02/02/19 17:46 Dose: 20 mg Oxycodone HCl (Roxicodone -) 10 mg PO Q6H PRN PRN Reason: PAIN SCALE 4-10 Last Admin: 02/02/19 17:32 Dose: 10 mg - Objective Vital Signs: Vital Signs Temperature 97.9 F 02/02/19 17:16 Pulse Rate 104 H 02/02/19 17:16 Respiratory Rate 20 02/02/19 17:16 Blood Pressure 137/89 02/02/19 17:16 O2 Sat by Pulse Oximetry (%) 98 02/02/19 08:03 Constitutional: Yes: No Distress HENT: Yes: Atraumatic Neck: Yes: Supple Cardiovascular: Yes: Regular Rate and Rhythm Respiratory: Yes: Rhonchi Gastrointestinal: Yes: Normal Bowel Sounds Extremities: Yes: WNL Edema: No Neurological: Yes: Alert, Oriented Labs: CBC, BMP 01/30/19 05:30 01/30/19 05:30 INR, PTT INR 1.12 (0.83-1.09) H 01/29/19 15:47 Problem List - Problems (1) Obesity Assessment/Plan: weight control counselling Code(s): E66.9 - OBESITY, UNSPECIFIED Qualifiers: Obesity type: unspecified obesity type (2) Chest pain Assessment/Plan: tele monitoring troponins negative cardiology consult Code(s): R07.9 - CHEST PAIN, UNSPECIFIED Qualifiers: Chest pain type: unspecified Qualified Code(s): R07.9 - Chest pain, unspecified (3) Shortness of breath Code(s): R06.02 - SHORTNESS OF BREATH (4) Asthmatic bronchitis Code(s): J45.909 - UNSPECIFIED ASTHMA, UNCOMPLICATED Qualifiers: Asthma severity: unspecified severity Asthma persistence: unspecified Asthma complication type: uncomplicated Qualified Code(s): J45.909 - Unspecified asthma, uncomplicated (5) HTN (hypertension) Code(s): I10 - ESSENTIAL (PRIMARY) HYPERTENSION Qualifiers: Hypertension type: essential hypertension Qualified Code(s): I10 - Essential (primary) hypertension (6) URI (upper respiratory infection) Code(s): J06.9 - ACUTE UPPER RESPIRATORY INFECTION, UNSPECIFIED
[2019-02-03] MEDS: methylPREDNISolone NA SUCC 40 MG/1 ML VIAL IVPUSH SCH ×3 (02:36→17:40)
[2019-02-03] MEDS: HEPARIN INFUSION - 25,000 UNITS/500 ML INFUS.BAG IVPB SCH (05:42)
[2019-02-03] MEDS: AMOX TR/POT CLAV 875MG/125MG TABLETS (FP) PO SCH ×2 (09:37→17:40)
[2019-02-03] MEDS: oxyCODONE HCL 5 MG TABLET PO PRN ×2 (09:37→18:28)
[2019-02-03] MEDS: ACETAMINOPHEN 325 MG TABLET (FP) PO PRN ×2 (09:38→18:28)
--- NOTE | 2019-02-03 10:44 | PN ---
Progress Note (short form) - Note Progress Note: PULMONARY PATIENT REPORTS SUPINE WHEEZE HR 1OO-105 Constitutional: Yes: Calm, Obese Eyes: Yes: WNL HENT: Yes: WNL Neck: Yes: WNL Cardiovascular: S1, S2 RAPID/IRREGULAR Respiratory: Yes: Wheezes (FEW WHEEZES) Gastrointestinal: Yes: Normal Bowel Sounds, Soft Extremities: Yes: WNL Edema: No Labs: NOTED Cardio note/plan reviewed IMP ASTHMATIC BRONCHITIS RAPID A.FIB/RATE CONTROLLED H/O THYMECTOMY PROMINENT R HILAR NODE PLAN CONTINUE RATE CONTROL TAPER IV STEROIDS BRONCHODILATORS NEEDED O2 ABX PFTS OUTPATIENT F/U CHEST CT OUTPATIENT 6-8 WKS IF NO CHANGE HILAR NODE WILL OBTAIN PET DANAY PER CARDIOLOGY César BUCKNER MD
[2019-02-03] MEDS: DILTIAZEM INJECTION 125 MG in SODIUM CHLORIDE 100 ML IVPB SCH (12:31)
--- NOTE | 2019-02-03 13:30 | PN ---
Progress Note (short form) - Note Progress Note: Chief Complaint: Events noted, notes reviewed, denies any chest pain, dyspnea improved, remains in atrial fibrillation rate controlled History of Present Illness: Seen and examined on telemetry. Events noted, notes reviewed, denies any chest pain, dyspnea improved, remains in atrial fibrillation rate controlled Echocardiography 01/30/2019 revealed calcific density in the left atrium normal LV systolic function/LVEF 60% Medications: Current Medications Acetaminophen (Tylenol -) 650 mg PO Q6H PRN PRN Reason: FEVER Last Admin: 02/03/19 09:38 Dose: 650 mg Albuterol/Ipratropium (Duoneb -) 1 amp NEB Q4H PRN PRN Reason: SHORTNESS OF BREATH Last Admin: 02/02/19 03:36 Dose: 1 amp Amoxicillin/Clavulanate Potassium (Augmentin - 875mg Tablet) 1 tab PO BID@0800, 1730 TERRY Last Admin: 02/03/19 09:37 Dose: 1 tab Guaifenesin (Robitussin Dm -) 10 ml PO Q6H PRN PRN Reason: COUGH Last Admin: 02/03/19 09:38 Dose: 10 ml Heparin Sodium (Porcine) (Heparin -) 5,000 unit IVPUSH PRN PRN PRN Reason: Heparin Last Admin: 02/02/19 10:23 Dose: 5,000 unit Heparin Sodium (Porcine) (Heparin -) 1,000 unit IVPUSH PRN PRN PRN Reason: Heparin Hydralazine HCl (Apresoline Injection -) 10 mg IVPUSH Q8H PRN PRN Reason: HYPERTENSION Heparin Sodium/Dextrose (Heparin Infusion -) 25,000 units in 500 mls @ 20 mls/ hr IVPB TITR TERRY; Protocol Last Titration: 02/03/19 09:38 Dose: 1,450 units/hr, 29 mls/hr Diltiazem HCl 125 mg/ Sodium (Chloride) 125 mls @ 5 mls/hr IVPB TITR TERRY; Protocol Last Admin: 02/03/19 12:31 Dose: 5 mg/hr, 5 mls/hr Methylprednisolone Sodium Succinate (Solu-Medrol -) 20 mg IVPUSH Q8H-IV TERRY Last Admin: 02/03/19 09:37 Dose: 20 mg Oxycodone HCl (Roxicodone -) 10 mg PO Q6H PRN PRN Reason: PAIN SCALE 4-10 Last Admin: 02/03/19 09:37 Dose: 10 mg Review of Systems Cardiovascular: As noted above Respiratory: denies: Cough or Sputum Production Gastrointestinal: denies: Nausea, Vomiting, Diarrhea, Constipation or Abdominal Discomfort Musculoskeletal: No Symptoms Reported Endocrine: No Symptoms Reported Vital Signs: Last Vital Signs Temp Pulse Resp BP Pulse Ox 97.5 F L 66 20 130/74 95 02/03/19 09:00 02/03/19 13:00 02/03/19 13:00 02/03/19 13:00 02/03/19 09:00 Intake & Output 01/31/19 02/01/19 02/02/19 02/03/19 23:59 23:59 23:59 23:59 Intake Total 1100 600 575 Balance 1100 600 575 Weight 378 lb Neck: Supple Negative JVD no bruit appreciated Respiratory: diminished Breath Sounds at the Bases Cardiovascular: S1 S2 Irregularly Irregular Gastrointestinal: Soft Benign Normal Bowel Sounds Ext: Trace Edema Labs: CBC, BMP 01/30/19 05:30 01/30/19 05:30 Hepatic Panel Total Bilirubin 0.3 mg/dL (0.2-1) 01/30/19 05:30 AST 46 U/L (15-37) H 01/30/19 05:30 ALT 99 U/L (13-61) H 01/30/19 05:30 Alkaline Phosphatase 77 U/L (45-117) 01/30/19 05:30 Albumin 3.9 g/dl (3.4-5.0) 01/30/19 05:30 INR, PTT INR 1.12 (0.83-1.09) H 01/29/19 15:47 Assessment/Plan ASSESSMENT: 1. Chest pain/dyspnea/cough referable to asthmatic bronchitis 2. PAF [id number] score of 1 on Heparin/eventual DOAC initiation 3. Abnormal EKG 4. HTN 5. R/O LA myxoma 6. Prominent right hilar lymph node 7. Post thymectomy PLAN: 1. Attempt Betapace with close monitoring of QTc 2. Attempt to taper off Cardizem drip once rate improved 3. Continue Heparin and eventual transition to DOAC's 4. Plan to proceed with DANAY guided synchronized cardioversion this coming week/ and to further evaluate LA pathology 5. Bronchodilator and IV steroids Saulat Cristian, M.D.
--- NOTE | 2019-02-03 18:56 | PN ---
Progress Note, Physician - Current Medication List Current Medications: Active Medications Acetaminophen (Tylenol -) 650 mg PO Q6H PRN PRN Reason: FEVER Last Admin: 02/03/19 18:28 Dose: 650 mg Albuterol/Ipratropium (Duoneb -) 1 amp NEB Q4H PRN PRN Reason: SHORTNESS OF BREATH Last Admin: 02/02/19 03:36 Dose: 1 amp Amoxicillin/Clavulanate Potassium (Augmentin - 875mg Tablet) 1 tab PO BID@0800, 1730 TERRY Last Admin: 02/03/19 17:40 Dose: 1 tab Guaifenesin (Robitussin Dm -) 10 ml PO Q6H PRN PRN Reason: COUGH Last Admin: 02/03/19 09:38 Dose: 10 ml Heparin Sodium (Porcine) (Heparin -) 5,000 unit IVPUSH PRN PRN PRN Reason: Heparin Last Admin: 02/02/19 10:23 Dose: 5,000 unit Heparin Sodium (Porcine) (Heparin -) 1,000 unit IVPUSH PRN PRN PRN Reason: Heparin Hydralazine HCl (Apresoline Injection -) 10 mg IVPUSH Q8H PRN PRN Reason: HYPERTENSION Heparin Sodium/Dextrose (Heparin Infusion -) 25,000 units in 500 mls @ 20 mls/ hr IVPB TITR TERRY; Protocol Last Titration: 02/03/19 09:38 Dose: 1,450 units/hr, 29 mls/hr Diltiazem HCl 125 mg/ Sodium (Chloride) 125 mls @ 5 mls/hr IVPB TITR TERRY; Protocol Last Titration: 02/03/19 18:40 Dose: 7.5 mg/hr, 7.5 mls/hr Methylprednisolone Sodium Succinate (Solu-Medrol -) 20 mg IVPUSH Q8H-IV TERRY Last Admin: 02/03/19 17:40 Dose: 20 mg Oxycodone HCl (Roxicodone -) 10 mg PO Q6H PRN PRN Reason: PAIN SCALE 4-10 Last Admin: 02/03/19 18:28 Dose: 10 mg - Objective Vital Signs: Vital Signs Temperature 97.5 F L 02/03/19 09:00 Pulse Rate 134 H 02/03/19 18:40 Respiratory Rate 20 02/03/19 13:00 Blood Pressure 126/77 02/03/19 18:40 O2 Sat by Pulse Oximetry (%) 95 02/03/19 09:00 Constitutional: Yes: No Distress HENT: Yes: Atraumatic Neck: Yes: Supple Cardiovascular: Yes: Regular Rate and Rhythm Respiratory: Yes: CTA Bilaterally Gastrointestinal: Yes: Normal Bowel Sounds Extremities: Yes: WNL Edema: No Peripheral Pulses WNL: Yes Neurological: Yes: Alert, Oriented Labs: CBC, BMP 01/30/19 05:30 01/30/19 05:30 INR, PTT INR 1.12 (0.83-1.09) H 01/29/19 15:47 Problem List - Problems (1) Obesity Assessment/Plan: weight control counselling Code(s): E66.9 - OBESITY, UNSPECIFIED Qualifiers: Obesity type: unspecified obesity type (2) Chest pain Assessment/Plan: tele monitoring troponins negative cardiology consult Code(s): R07.9 - CHEST PAIN, UNSPECIFIED Qualifiers: Chest pain type: unspecified Qualified Code(s): R07.9 - Chest pain, unspecified (3) Shortness of breath Assessment/Plan: iv steroids iv abx Code(s): R06.02 - SHORTNESS OF BREATH (4) Asthmatic bronchitis Code(s): J45.909 - UNSPECIFIED ASTHMA, UNCOMPLICATED Qualifiers: Asthma severity: unspecified severity Asthma persistence: unspecified Asthma complication type: uncomplicated Qualified Code(s): J45.909 - Unspecified asthma, uncomplicated (5) HTN (hypertension) Assessment/Plan: monitor cardiology consul Code(s): I10 - ESSENTIAL (PRIMARY) HYPERTENSION Qualifiers: Hypertension type: essential hypertension Qualified Code(s): I10 - Essential (primary) hypertension (6) URI (upper respiratory infection) Assessment/Plan: on abx pr id Code(s): J06.9 - ACUTE UPPER RESPIRATORY INFECTION, UNSPECIFIED
[2019-02-03] MEDS: ALBUTEROL SO4 2.5/IPRATROPIUM 0.5 INH SOL 3 ML VIAL.NEB. NEB PRN (21:20)
[2019-02-04] MEDS: ACETAMINOPHEN 325 MG TABLET (FP) PO PRN ×3 (00:43→16:49)
[2019-02-04] MEDS: methylPREDNISolone NA SUCC 40 MG/1 ML VIAL IVPUSH SCH ×3 (02:38→18:32)
[2019-02-04] MEDS: HEPARIN INFUSION - 25,000 UNITS/500 ML INFUS.BAG IVPB SCH (09:48)
[2019-02-04] MEDS: AMOX TR/POT CLAV 875MG/125MG TABLETS (FP) PO SCH ×2 (09:57→16:49)
[2019-02-04] MEDS: oxyCODONE HCL 5 MG TABLET PO PRN ×3 (09:58→23:34)
--- NOTE | 2019-02-04 10:52 | PN ---
Progress Note (short form) - Note Progress Note: Chief Complaint: Events noted, notes reviewed, denies any chest pain, dyspnea improved, remains in atrial fibrillation rate controlled History of Present Illness: Seen and examined on telemetry. Events noted, notes reviewed, denies any chest pain, dyspnea improved, remains in atrial fibrillation rate controlled As outlined plan to proceed with DANAY+/-cardioversion this week Echocardiography 01/30/2019 revealed calcific density in the left atrium normal LV systolic function/LVEF 60% Medications: Current Medications Acetaminophen (Tylenol -) 650 mg PO Q6H PRN PRN Reason: FEVER Last Admin: 02/04/19 09:58 Dose: 650 mg Amoxicillin/Clavulanate Potassium (Augmentin - 875mg Tablet) 1 tab PO BID@0800, 1730 [facility] Last Admin: 02/04/19 09:57 Dose: 1 tab Guaifenesin (Robitussin Dm -) 10 ml PO Q6H PRN PRN Reason: COUGH Last Admin: 02/03/19 09:38 Dose: 10 ml Heparin Sodium (Porcine) (Heparin -) 5,000 unit IVPUSH PRN PRN PRN Reason: Heparin Last Admin: 02/02/19 10:23 Dose: 5,000 unit Heparin Sodium (Porcine) (Heparin -) 1,000 unit IVPUSH PRN PRN PRN Reason: Heparin Hydralazine HCl (Apresoline Injection -) 10 mg IVPUSH Q8H PRN PRN Reason: HYPERTENSION Heparin Sodium/Dextrose (Heparin Infusion -) 25,000 units in 500 mls @ 20 mls/ hr IVPB TITR [facility]; Protocol Last Admin: 02/04/19 09:48 Dose: 1,450 units/hr, 29 mls/hr Diltiazem HCl 125 mg/ Sodium (Chloride) 125 mls @ 5 mls/hr IVPB TITR [facility]; Protocol Last Titration: 02/03/19 18:40 Dose: 7.5 mg/hr, 7.5 mls/hr Methylprednisolone Sodium Succinate (Solu-Medrol -) 20 mg IVPUSH Q8H-IV [facility] Last Admin: 02/04/19 09:58 Dose: 20 mg Oxycodone HCl (Roxicodone -) 10 mg PO Q6H PRN PRN Reason: PAIN SCALE 4-10 Last Admin: 02/04/19 09:58 Dose: 10 mg Review of Systems Cardiovascular: As noted above Respiratory: denies: Cough or Sputum Production Gastrointestinal: denies: Nausea, Vomiting, Diarrhea, Constipation or Abdominal Discomfort Musculoskeletal: No Symptoms Reported Endocrine: No Symptoms Reported Vital Signs: Last Vital Signs Temp Pulse Resp BP Pulse Ox 97.8 F 111 H 20 116/60 95 02/04/19 09:23 02/04/19 09:23 02/04/19 09:23 02/04/19 09:23 02/04/19 08:32 Intake & Output 02/01/19 02/02/19 02/03/19 02/04/19 23:59 23:59 23:59 23:59 Intake Total 600 575 600 Balance 600 575 600 Weight 378 lb Neck: Supple Negative JVD no bruit appreciated Respiratory: diminished Breath Sounds at the Bases Cardiovascular: S1 S2 Irregularly Irregular Gastrointestinal: Soft Benign Normal Bowel Sounds Ext: Trace Edema Labs: CBC, BMP 01/30/19 05:30 01/30/19 05:30 Hepatic Panel Total Bilirubin 0.3 mg/dL (0.2-1) 01/30/19 05:30 AST 46 U/L (15-37) H 01/30/19 05:30 ALT 99 U/L (13-61) H 01/30/19 05:30 Alkaline Phosphatase 77 U/L (45-117) 01/30/19 05:30 Albumin 3.9 g/dl (3.4-5.0) 01/30/19 05:30 INR, PTT INR 1.12 (0.83-1.09) H 01/29/19 15:47 Assessment/Plan ASSESSMENT: 1. Chest pain/dyspnea/cough referable to asthmatic bronchitis 2. PAF [id number] score of 1 on Heparin/eventual DOAC's initiation 3. Abnormal EKG 4. HTN 5. R/O LA myxoma 6. Prominent right hilar lymph node 7. Post thymectomy PLAN: 1. Attempt Betapace with close monitoring of QTc 2. Attempt to taper off Cardizem drip once rate improved 3. Continue Heparin and eventual transition to DOAC's 4. Plan to proceed with DANAY guided synchronized cardioversion this coming week/ and to further evaluate LA pathology 5. Bronchodilators and IV steroids Dane Foster M.D.
[2019-02-04] MEDS: DILTIAZEM INJECTION 125 MG in SODIUM CHLORIDE 100 ML IVPB SCH (13:18)
[2019-02-04] MEDS: SOTALOL HCL 80 MG TABLET (FP) PO SCH ×2 (13:18→22:00)
--- NOTE | 2019-02-04 14:50 | PN ---
Progress Note (short form) - Note Progress Note: PULMONARY PATIENT REPORTS SUPINE WHEEZE HR 110-125 Constitutional: Yes: Calm, Obese Eyes: Yes: WNL HENT: Yes: WNL Neck: Yes: WNL Cardiovascular: S1, S2 RAPID/IRREGULAR Respiratory: Yes: Wheezes (FEW WHEEZES) Gastrointestinal: Yes: Normal Bowel Sounds, Soft Extremities: Yes: WNL Edema: No Labs: NOTED Cardio note/plan reviewed DANAY/CARDIOVERSION PENDING IMP ASTHMATIC BRONCHITIS RAPID A.FIB/RATE H/O THYMECTOMY PROMINENT R HILAR NODE PLAN CONTINUE RATE CONTROL TAPER IV STEROIDS BRONCHODILATORS NEEDED O2 ABX PFTS OUTPATIENT F/U CHEST CT OUTPATIENT 6-8 WKS IF NO CHANGE HILAR NODE WILL OBTAIN PET DANAY/CARDIOVERSION PER CARDIOLOGY César BUCKNER MD
--- NOTE | 2019-02-04 18:27 | PN ---
Progress Note, Physician History of Present Illness: feeling better - Current Medication List Current Medications: Active Medications Acetaminophen (Tylenol -) 650 mg PO Q6H PRN PRN Reason: FEVER Last Admin: 02/04/19 16:49 Dose: 650 mg Amoxicillin/Clavulanate Potassium (Augmentin - 875mg Tablet) 1 tab PO BID@0800, 1730 [facility] Last Admin: 02/04/19 16:49 Dose: 1 tab Guaifenesin (Robitussin Dm -) 10 ml PO Q6H PRN PRN Reason: COUGH Last Admin: 02/03/19 09:38 Dose: 10 ml Heparin Sodium (Porcine) (Heparin -) 5,000 unit IVPUSH PRN PRN PRN Reason: Heparin Last Admin: 02/02/19 10:23 Dose: 5,000 unit Heparin Sodium (Porcine) (Heparin -) 1,000 unit IVPUSH PRN PRN PRN Reason: Heparin Hydralazine HCl (Apresoline Injection -) 10 mg IVPUSH Q8H PRN PRN Reason: HYPERTENSION Heparin Sodium/Dextrose (Heparin Infusion -) 25,000 units in 500 mls @ 20 mls/ hr IVPB TITR [facility]; Protocol Last Admin: 02/04/19 09:48 Dose: 1,450 units/hr, 29 mls/hr Diltiazem HCl 125 mg/ Sodium (Chloride) 125 mls @ 5 mls/hr IVPB TITR [facility]; Protocol Last Titration: 02/04/19 16:53 Dose: 5 mg/hr, 5 mls/hr Methylprednisolone Sodium Succinate (Solu-Medrol -) 20 mg IVPUSH Q8H-IV [facility] Last Admin: 02/04/19 09:58 Dose: 20 mg Oxycodone HCl (Roxicodone -) 10 mg PO Q6H PRN PRN Reason: PAIN SCALE 4-10 Last Admin: 02/04/19 16:49 Dose: 10 mg Sotalol HCl (Betapace -) 80 mg PO BID [facility] Last Admin: 02/04/19 13:18 Dose: 80 mg - Objective Vital Signs: Vital Signs Temperature 98.3 F 02/04/19 14:00 Pulse Rate 90 02/04/19 16:53 Respiratory Rate 20 02/04/19 14:00 Blood Pressure 128/78 02/04/19 16:53 O2 Sat by Pulse Oximetry (%) 95 03/24/19 08:32 Constitutional: Yes: No Distress HENT: Yes: Atraumatic Neck: Yes: Supple Cardiovascular: Yes: Regular Rate and Rhythm Respiratory: Yes: CTA Bilaterally Gastrointestinal: Yes: Normal Bowel Sounds Extremities: Yes: WNL Edema: No Peripheral Pulses WNL: Yes Neurological: Yes: Alert, Oriented Labs: CBC, BMP 01/30/19 05:30 01/30/19 05:30 INR, PTT INR 1.12 (0.83-1.09) H 01/29/19 15:47 Problem List - Problems (1) Obesity Assessment/Plan: weight control counselling Code(s): E66.9 - OBESITY, UNSPECIFIED Qualifiers: Obesity type: unspecified obesity type (2) Chest pain Assessment/Plan: tele monitoring troponins negative cardiology consult Code(s): R07.9 - CHEST PAIN, UNSPECIFIED Qualifiers: Chest pain type: unspecified Qualified Code(s): R07.9 - Chest pain, unspecified (3) Shortness of breath Assessment/Plan: iv steroids iv abx Code(s): R06.02 - SHORTNESS OF BREATH (4) Asthmatic bronchitis Code(s): J45.909 - UNSPECIFIED ASTHMA, UNCOMPLICATED Qualifiers: Asthma severity: unspecified severity Asthma persistence: unspecified Asthma complication type: uncomplicated Qualified Code(s): J45.909 - Unspecified asthma, uncomplicated (5) HTN (hypertension) Code(s): I10 - ESSENTIAL (PRIMARY) HYPERTENSION Qualifiers: Hypertension type: essential hypertension Qualified Code(s): I10 - Essential (primary) hypertension (6) URI (upper respiratory infection) Assessment/Plan: on po abx Code(s): J06.9 - ACUTE UPPER RESPIRATORY INFECTION, UNSPECIFIED (7) Paroxysmal atrial fibrillation with rapid ventricular response Assessment/Plan: for Larry cardioversion tomorow on heparin drip Code(s): I48.0 - PAROXYSMAL ATRIAL FIBRILLATION
[2019-02-05] MEDS: methylPREDNISolone NA SUCC 40 MG/1 ML VIAL IVPUSH SCH ×3 (01:36→17:42)
[2019-02-05] MEDS: HEPARIN INFUSION - 25,000 UNITS/500 ML INFUS.BAG IVPB SCH ×2 (04:57→12:00)
[2019-02-05] MEDS: AMOX TR/POT CLAV 875MG/125MG TABLETS (FP) PO SCH ×2 (09:53→17:42)
[2019-02-05] MEDS: SOTALOL HCL 80 MG TABLET (FP) PO SCH ×2 (09:55→21:47)
--- NOTE | 2019-02-05 10:10 | PN ---
Progress Note, Physician History of Present Illness: Cough, dyspnea, wheezing improving. Rate-control improved and started on sotalol , denies chest pain, palpitations, near syncope. - Current Medication List Current Medications: Active Medications Acetaminophen (Tylenol -) 650 mg PO Q6H PRN PRN Reason: FEVER Last Admin: 02/04/19 16:49 Dose: 650 mg Amoxicillin/Clavulanate Potassium (Augmentin - 875mg Tablet) 1 tab PO BID@0800, 1730 [facility] Last Admin: 02/05/19 09:53 Dose: Not Given Guaifenesin (Robitussin Dm -) 10 ml PO Q6H PRN PRN Reason: COUGH Last Admin: 02/03/19 09:38 Dose: 10 ml Heparin Sodium (Porcine) (Heparin -) 5,000 unit IVPUSH PRN PRN PRN Reason: Heparin Last Admin: 02/02/19 10:23 Dose: 5,000 unit Heparin Sodium (Porcine) (Heparin -) 1,000 unit IVPUSH PRN PRN PRN Reason: Heparin Hydralazine HCl (Apresoline Injection -) 10 mg IVPUSH Q8H PRN PRN Reason: HYPERTENSION Heparin Sodium/Dextrose (Heparin Infusion -) 25,000 units in 500 mls @ 20 mls/ hr IVPB TITR [facility]; Protocol Last Admin: 02/05/19 04:57 Dose: 1,450 units/hr, 29 mls/hr Methylprednisolone Sodium Succinate (Solu-Medrol -) 20 mg IVPUSH Q8H-IV [facility] Last Admin: 02/05/19 09:55 Dose: 20 mg Oxycodone HCl (Roxicodone -) 10 mg PO Q6H PRN PRN Reason: PAIN SCALE 4-10 Last Admin: 02/04/19 23:34 Dose: 10 mg Sotalol HCl (Betapace -) 80 mg PO BID [facility] Last Admin: 02/05/19 09:55 Dose: 80 mg - Objective Vital Signs: Vital Signs Temperature 98 F 02/05/19 09:00 Pulse Rate 114 H 02/05/19 09:00 Respiratory Rate 18 02/05/19 09:00 Blood Pressure 118/70 02/05/19 09:00 O2 Sat by Pulse Oximetry (%) 96 02/04/19 21:00 Constitutional: Yes: No Distress, Calm Neck: Yes: Supple Cardiovascular: Yes: Tachycardia, Pulse Irregular Respiratory: Yes: Regular, Diminished Gastrointestinal: Yes: Normal Bowel Sounds, Soft, Abdomen, Obese Edema: Yes Edema: LLE: Trace, RLE: Trace Labs: CBC, BMP 01/30/19 05:30 01/30/19 05:30 INR, PTT INR 1.12 (0.83-1.09) H 01/29/19 15:47 - ....Imaging EKG: Report Reviewed (Tele: Rapid afib) Problem List - Problems (1) Asthmatic bronchitis Code(s): J45.909 - UNSPECIFIED ASTHMA, UNCOMPLICATED Qualifiers: Asthma severity: unspecified severity Asthma persistence: unspecified Asthma complication type: uncomplicated Qualified Code(s): J45.909 - Unspecified asthma, uncomplicated (2) Chest pain Code(s): R07.9 - CHEST PAIN, UNSPECIFIED Qualifiers: Chest pain type: unspecified Qualified Code(s): R07.9 - Chest pain, unspecified (3) HTN (hypertension) Code(s): I10 - ESSENTIAL (PRIMARY) HYPERTENSION Qualifiers: Hypertension type: essential hypertension Qualified Code(s): I10 - Essential (primary) hypertension (4) Obesity Code(s): E66.9 - OBESITY, UNSPECIFIED Qualifiers: Obesity type: unspecified obesity type (5) Right bundle branch block Code(s): I45.10 - UNSPECIFIED RIGHT BUNDLE-BRANCH BLOCK (6) Paroxysmal atrial fibrillation with rapid ventricular response Code(s): I48.0 - PAROXYSMAL ATRIAL FIBRILLATION Assessment/Plan 01/30/2019 Echocardiography report notes calcific density in the left atrium and suggested DANAY to clarify. LVEF 60% 1. Chest pain/dyspnea/cough referable to asthmatic bronchitis 2. PAF [id number] score of 1 on Heparin/eventual DOAC's initiation 3. Abnormal EKG 4. HTN 5. R/O LA myxoma 6. Prominent right hilar lymph node 7. Post thymectomy PLAN: 1. Continue sotalol 80 bid with close monitoring of QTc 2. Weaned off Cardizem drip as rate control improved 3. Continue Heparin and eventual transition to DOAC's 4. Plan to proceed with DANAY guided synchronized cardioversion today to further evaluate LA pathology 5. Bronchodilators, empiric abx course and IV steroid taper
--- NOTE | 2019-02-05 11:00 | PN ---
Progress Note, Physician History of Present Illness: PULMONARY ALERT,FEELING BETTER,LESS DYSPNEIC,FOR DANAY TODAY - Current Medication List Current Medications: Active Medications Acetaminophen (Tylenol -) 650 mg PO Q6H PRN PRN Reason: FEVER Last Admin: 02/04/19 16:49 Dose: 650 mg Amoxicillin/Clavulanate Potassium (Augmentin - 875mg Tablet) 1 tab PO BID@0800, 1730 [facility] Last Admin: 02/05/19 09:53 Dose: Not Given Guaifenesin (Robitussin Dm -) 10 ml PO Q6H PRN PRN Reason: COUGH Last Admin: 02/03/19 09:38 Dose: 10 ml Heparin Sodium (Porcine) (Heparin -) 5,000 unit IVPUSH PRN PRN PRN Reason: Heparin Last Admin: 02/02/19 10:23 Dose: 5,000 unit Heparin Sodium (Porcine) (Heparin -) 1,000 unit IVPUSH PRN PRN PRN Reason: Heparin Hydralazine HCl (Apresoline Injection -) 10 mg IVPUSH Q8H PRN PRN Reason: HYPERTENSION Heparin Sodium/Dextrose (Heparin Infusion -) 25,000 units in 500 mls @ 20 mls/ hr IVPB TITR [facility]; Protocol Last Admin: 02/05/19 04:57 Dose: 1,450 units/hr, 29 mls/hr Methylprednisolone Sodium Succinate (Solu-Medrol -) 20 mg IVPUSH Q8H-IV [facility] Last Admin: 02/05/19 09:55 Dose: 20 mg Oxycodone HCl (Roxicodone -) 10 mg PO Q6H PRN PRN Reason: PAIN SCALE 4-10 Last Admin: 02/04/19 23:34 Dose: 10 mg Sotalol HCl (Betapace -) 80 mg PO BID [facility] Last Admin: 02/05/19 09:55 Dose: 80 mg - Objective Vital Signs: Vital Signs Temperature 98 F 02/05/19 09:00 Pulse Rate 114 H 02/05/19 09:00 Respiratory Rate 18 02/05/19 09:00 Blood Pressure 118/70 02/05/19 09:00 O2 Sat by Pulse Oximetry (%) 96 02/04/19 21:00 Constitutional: Yes: Well Nourished, Calm Eyes: Yes: WNL HENT: Yes: WNL Neck: Yes: WNL Cardiovascular: Yes: Regular Rate and Rhythm, S1, S2 Respiratory: Yes: Diminished Gastrointestinal: Yes: Normal Bowel Sounds, Soft Extremities: Yes: WNL Edema: No Labs: Problem List - Problems (1) Asthmatic bronchitis Code(s): J45.909 - UNSPECIFIED ASTHMA, UNCOMPLICATED Qualifiers: Asthma severity: unspecified severity Asthma persistence: unspecified Asthma complication type: uncomplicated Qualified Code(s): J45.909 - Unspecified asthma, uncomplicated (2) Obesity Code(s): E66.9 - OBESITY, UNSPECIFIED Qualifiers: Obesity type: unspecified obesity type (3) Shortness of breath Code(s): R06.02 - SHORTNESS OF BREATH Assessment/Plan IMP ASTHMATIC BRONCHITIS IMPROVING H/O THYMECTOMY PROMINENT R HILAR NODE PLAN TAPER IV STEROIDS INHALED BRONCHODILATORS O2 PO ABX PFTS OUTPATIENT F/U CHEST CT OUTPATIENT DANAY TODAY DR DAVID Problem List - Problems (1) Asthmatic bronchitis Code(s): J45.909 - UNSPECIFIED ASTHMA, UNCOMPLICATED (2) Obesity Code(s): E66.9 - OBESITY, UNSPECIFIED (3) Shortness of breath Code(s): R06.02 - SHORTNESS OF BREATH
--- NOTE | 2019-02-05 14:04 | PN ---
Progress Note, Physician History of Present Illness: stable breathing well no new issues - Current Medication List Current Medications: Active Medications Amoxicillin/Clavulanate Potassium (Augmentin - 875mg Tablet) 1 tab PO BID@0800, 1730 [facility] Last Admin: 02/05/19 09:53 Dose: Not Given Guaifenesin (Robitussin Dm -) 10 ml PO Q6H PRN PRN Reason: COUGH Last Admin: 02/03/19 09:38 Dose: 10 ml Heparin Sodium (Porcine) (Heparin -) 5,000 unit IVPUSH PRN PRN PRN Reason: Heparin Last Admin: 02/02/19 10:23 Dose: 5,000 unit Heparin Sodium (Porcine) (Heparin -) 1,000 unit IVPUSH PRN PRN PRN Reason: Heparin Hydralazine HCl (Apresoline Injection -) 10 mg IVPUSH Q8H PRN PRN Reason: HYPERTENSION Heparin Sodium/Dextrose (Heparin Infusion -) 25,000 units in 500 mls @ 20 mls/ hr IVPB TITR [facility]; Protocol Last Admin: 02/05/19 04:57 Dose: 1,450 units/hr, 29 mls/hr Methylprednisolone Sodium Succinate (Solu-Medrol -) 20 mg IVPUSH Q8H-IV [facility] Last Admin: 02/05/19 09:55 Dose: 20 mg Oxycodone HCl (Roxicodone -) 10 mg PO Q6H PRN PRN Reason: PAIN SCALE 4-10 Last Admin: 02/04/19 23:34 Dose: 10 mg Sotalol HCl (Betapace -) 80 mg PO BID [facility] Last Admin: 02/05/19 09:55 Dose: 80 mg - Objective Vital Signs: Vital Signs Temperature 98.1 F 02/05/19 12:41 Pulse Rate 83 02/05/19 13:19 Respiratory Rate 18 02/05/19 13:19 Blood Pressure 129/98 02/05/19 13:19 O2 Sat by Pulse Oximetry (%) 97 02/05/19 13:19 Constitutional: Yes: No Distress, Calm, Obese Cardiovascular: Yes: Regular Rate and Rhythm Respiratory: Yes: Regular, CTA Bilaterally Gastrointestinal: Yes: Normal Bowel Sounds, Soft Musculoskeletal: Yes: WNL Extremities: Yes: WNL Neurological: Yes: Alert, Oriented Psychiatric: Yes: Alert, Oriented Labs: CBC, BMP 01/30/19 05:30 01/30/19 05:30 INR, PTT INR 1.12 (0.83-1.09) H 01/29/19 15:47 Assessment/Plan Problem List - Problems (1) Obesity Code(s): E66.9 - OBESITY, UNSPECIFIED Qualifiers: Obesity type: unspecified obesity type (2) Chest pain Code(s): R07.9 - CHEST PAIN, UNSPECIFIED Qualifiers: Chest pain type: unspecified Qualified Code(s): R07.9 - Chest pain, unspecified (3) Shortness of breath Code(s): R06.02 - SHORTNESS OF BREATH (4) Asthmatic bronchitis Code(s): J45.909 - UNSPECIFIED ASTHMA, UNCOMPLICATED Qualifiers: Asthma severity: unspecified severity Asthma persistence: unspecified Asthma complication type: uncomplicated Qualified Code(s): J45.909 - Unspecified asthma, uncomplicated (5) HTN (hypertension) Code(s): I10 - ESSENTIAL (PRIMARY) HYPERTENSION Qualifiers: Hypertension type: unspecified Qualified Code(s): I10 - Essential (primary ) hypertension (6) URI (upper respiratory infection) Assessment/Plan: on abx pr id Code(s): J06.9 - ACUTE UPPER RESPIRATORY INFECTION, UNSPECIFIED plan will stop abx incentive kaveh rest as per the team
--- NOTE | 2019-02-05 15:04 | ECHO ---
Name: RAPTIS, CORAL Exam:Transesophageal Echocardiogram Study Date: 02/05/2019 12:17 PM Age: 53 yrs Height: 76 in Weight: 378 lb BSA: 2.9 m2 Procedure: A 2D transesophageal echocardiogram with Doppler and color flow Doppler was performed. Informed conse nt for Transesophageal Echocardiogram, and use of a contrast agent as needed, was obtained prior to the proc edure. The patient was brought to the endoscopy suite in a fasting state. An intravenous line was placed. A topical anesthetic agent was used for oropharangeal anesthesia. A bite block was inserted. IV concious sedati on was administered using propafol. A multifrequency, multiplane transesopheageal echocardiographic endoscop e was inserted and manipulated in the standard fashion to achieve multiplane views. The usual views were ob tained; basal, mid-esophageal, transgastric and aortic views. The patient's vital signs, including blood pres sure, heart rate, pulse oximetry and cardiac rhythm were monitored throughout the procedure and remained st able. The patient tolerated the procedure well without evidence of orophangeal or esophageal trauma. There were no complications. The patient was in atrial fibrillation with rapid ventricular response during the exam with a heart rate exceeding 100 bpm. Left Ventricle The left ventricle is normal in size. Left ventricular systolic function is mildly reduced. There is mild global hypokinesis of the left ventricle. Atria The left atrial size is normal. No thrombus is detected in the left atrial appendage. No left atrial mass or thrombus visualized. The interatrial septum is intact with no evidence for an atrial septal defect. I njection of contrast documented no interatrial shunt. Mitral Valve The mitral valve is normal in structure and function. There is mild mitral regurgitation. Tricuspid Valve The tricuspid valve is normal in structure and function. There is mild tricuspid regurgitation. Aortic Valve The aortic valve is normal in structure and function. The aortic valve is trileaflet. No aortic regur gitation is present. Pulmonic Valve The pulmonic valve is not well visualized. Great Vessels Small atherosclerotic plaque in distal aortic arch. Pericardium/Pluera There is no pericardial effusion. Interpretation Summary The left ventricle is normal in size. Left ventricular systolic function is mildly reduced. There is mild global hypokinesis of the left ventricle. The left atrial size is normal. No thrombus is detected in the left atrial appendage. No left atrial mass or thrombus visualized. Calcified mass suggested on TTE is not visualized. Clinic al correlation is recommended The interatrial septum is intact with no evidence for an atrial septal defect. Injection of contrast documented no interatrial shunt. There is mild mitral regurgitation. There is mild tricuspid regurgitation. Small atherosclerotic plaque in distal aortic arch There is no pericardial effusion. Peter Damico MD 02/05/2019 03:03 PM
[2019-02-05] MEDS: oxyCODONE HCL 5 MG TABLET PO PRN ×2 (16:39→21:44)
[2019-02-05] MEDS ORDERED: ACETAMINOPHEN 325 MG TABLET (FP) PO PRN (18:07)
--- NOTE | 2019-02-05 18:30 | PN ---
Progress Note, Physician History of Present Illness: feeling better - Current Medication List Current Medications: Active Medications Acetaminophen (Tylenol -) 650 mg PO Q6H PRN PRN Reason: FEVER Amoxicillin/Clavulanate Potassium (Augmentin - 875mg Tablet) 1 tab PO BID@0800, 1730 [facility] Last Admin: 02/05/19 17:42 Dose: 1 tab Guaifenesin (Robitussin Dm -) 10 ml PO Q6H PRN PRN Reason: COUGH Last Admin: 02/03/19 09:38 Dose: 10 ml Heparin Sodium (Porcine) (Heparin -) 5,000 unit IVPUSH PRN PRN PRN Reason: Heparin Last Admin: 02/02/19 10:23 Dose: 5,000 unit Heparin Sodium (Porcine) (Heparin -) 1,000 unit IVPUSH PRN PRN PRN Reason: Heparin Hydralazine HCl (Apresoline Injection -) 10 mg IVPUSH Q8H PRN PRN Reason: HYPERTENSION Heparin Sodium/Dextrose (Heparin Infusion -) 25,000 units in 500 mls @ 20 mls/ hr IVPB TITR [facility]; Protocol Last Admin: 02/05/19 12:00 Dose: 1,450 units/hr, 29 mls/hr Methylprednisolone Sodium Succinate (Solu-Medrol -) 20 mg IVPUSH Q8H-IV [facility] Last Admin: 02/05/19 17:42 Dose: 20 mg Oxycodone HCl (Roxicodone -) 10 mg PO Q6H PRN PRN Reason: PAIN SCALE 4-10 Last Admin: 02/05/19 16:39 Dose: 10 mg Sotalol HCl (Betapace -) 80 mg PO BID [facility] Last Admin: 02/05/19 09:55 Dose: 80 mg - Objective Vital Signs: Vital Signs Temperature 98.9 F 02/05/19 16:09 Pulse Rate 86 02/05/19 16:09 Respiratory Rate 22 H 02/05/19 16:09 Blood Pressure 135/98 02/05/19 16:09 O2 Sat by Pulse Oximetry (%) 99 02/05/19 14:54 Constitutional: Yes: No Distress Eyes: Yes: Conjunctiva Clear HENT: Yes: Atraumatic Neck: Yes: Supple Cardiovascular: Yes: Regular Rate and Rhythm Respiratory: Yes: CTA Bilaterally Gastrointestinal: Yes: Normal Bowel Sounds Extremities: Yes: WNL Neurological: Yes: Alert, Oriented Labs: CBC, BMP 01/30/19 05:30 01/30/19 05:30 INR, PTT INR 1.12 (0.83-1.09) H 01/29/19 15:47 Problem List - Problems (1) Obesity Assessment/Plan: weight control counselling Code(s): E66.9 - OBESITY, UNSPECIFIED Qualifiers: Obesity type: unspecified obesity type (2) Chest pain Assessment/Plan: tele monitoring troponins negative cardiology consult Code(s): R07.9 - CHEST PAIN, UNSPECIFIED Qualifiers: Chest pain type: unspecified Qualified Code(s): R07.9 - Chest pain, unspecified (3) Shortness of breath Assessment/Plan: iv steroids iv abx Code(s): R06.02 - SHORTNESS OF BREATH (4) Asthmatic bronchitis Code(s): J45.909 - UNSPECIFIED ASTHMA, UNCOMPLICATED Qualifiers: Asthma severity: unspecified severity Asthma persistence: unspecified Asthma complication type: uncomplicated Qualified Code(s): J45.909 - Unspecified asthma, uncomplicated (5) HTN (hypertension) Assessment/Plan: monitor cardiology consul Code(s): I10 - ESSENTIAL (PRIMARY) HYPERTENSION Qualifiers: Hypertension type: essential hypertension Qualified Code(s): I10 - Essential (primary) hypertension (6) URI (upper respiratory infection) Assessment/Plan: on po abx Code(s): J06.9 - ACUTE UPPER RESPIRATORY INFECTION, UNSPECIFIED (7) Paroxysmal atrial fibrillation with rapid ventricular response Assessment/Plan: s/pTee cardioversion ..doing well on heparin drip Code(s): I48.0 - PAROXYSMAL ATRIAL FIBRILLATION
--- NOTE | 2019-02-05 22:57 | PN ---
Progress Note (short form) - Note Progress Note: DANAY and synchronized cardioversion Successful synchronized cardioversion to sinus rhythm with 2 attempts at 120J and 150J. See DANAY report Peter Damico MD Problem List - Problems (1) HTN (hypertension) Code(s): I10 - ESSENTIAL (PRIMARY) HYPERTENSION Qualifiers: Hypertension type: essential hypertension Qualified Code(s): I10 - Essential (primary) hypertension (2) Right bundle branch block Code(s): I45.10 - UNSPECIFIED RIGHT BUNDLE-BRANCH BLOCK (3) Asthmatic bronchitis Code(s): J45.909 - UNSPECIFIED ASTHMA, UNCOMPLICATED Qualifiers: Asthma severity: unspecified severity Asthma persistence: unspecified Asthma complication type: uncomplicated Qualified Code(s): J45.909 - Unspecified asthma, uncomplicated (4) Chest pain Code(s): R07.9 - CHEST PAIN, UNSPECIFIED Qualifiers: Chest pain type: unspecified Qualified Code(s): R07.9 - Chest pain, unspecified (5) Obesity Code(s): E66.9 - OBESITY, UNSPECIFIED Qualifiers: Obesity type: unspecified obesity type (6) Shortness of breath Code(s): R06.02 - SHORTNESS OF BREATH (7) URI (upper respiratory infection) Code(s): J06.9 - ACUTE UPPER RESPIRATORY INFECTION, UNSPECIFIED
[2019-02-05] MEDS ORDERED: oxyCODONE HCL 5 MG TABLET PO PRN (23:24)
[2019-02-06] MEDS: methylPREDNISolone NA SUCC 40 MG/1 ML VIAL IVPUSH SCH ×2 (02:18→10:19)
--- NOTE | 2019-02-06 09:25 | EKG ---
Test Reason : Blood Pressure : / mmHG Vent. Rate : 079 BPM Atrial Rate : 079 BPM P-R Int : 160 ms QRS Dur : 148 ms QT Int : 410 ms P-R-T Axes : 021 254 -65 degrees QTc Int : 470 ms NORMAL SINUS RHYTHM LEFT ATRIAL ENLARGEMENT RIGHT BUNDLE BRANCH BLOCK SEPTAL INFARCT , AGE UNDETERMINED INFERIOR INFARCT , AGE UNDETERMINED ABNORMAL ECG WHEN COMPARED WITH ECG OF 01-FEB-2019 12:17, VENT. RATE HAS DECREASED SINUS RHYTHM HAS REPLACED ATRIAL FIBRILLATION Confirmed by DIANELYS VAZQUEZ MD ([id number]) on 02/06/2019 9:24:30 AM Referred By: Confirmed By:DIANELYS VAZQUEZ MD
[2019-02-06] MEDS: SOTALOL HCL 80 MG TABLET (FP) PO SCH (10:20)
[2019-02-06] MEDS: AMOX TR/POT CLAV 875MG/125MG TABLETS (FP) PO SCH ×2 (10:21→17:26)
--- NOTE | 2019-02-06 11:22 | PN ---
Progress Note, Physician Chief Complaint: Remains in sinus rhythm Not in distress History of Present Illness: Patient was seen and examined. Awake and alert. Chart was reviewed Denies chest pain, SOB or palpitation Remains in sinus rhythm post synchronized cardioversion yesterday - Current Medication List Current Medications: Active Medications Acetaminophen (Tylenol -) 650 mg PO Q6H PRN PRN Reason: FEVER Last Admin: 02/05/19 21:46 Dose: 650 mg Amoxicillin/Clavulanate Potassium (Augmentin - 875mg Tablet) 1 tab PO BID@0800, 1730 [facility] Last Admin: 02/06/19 10:21 Dose: 1 tab Guaifenesin (Robitussin Dm -) 10 ml PO Q6H PRN PRN Reason: COUGH Last Admin: 02/03/19 09:38 Dose: 10 ml Hydralazine HCl (Apresoline Injection -) 10 mg IVPUSH Q8H PRN PRN Reason: HYPERTENSION Methylprednisolone Sodium Succinate (Solu-Medrol -) 20 mg IVPUSH Q8H-IV [facility] Last Admin: 02/06/19 10:19 Dose: 20 mg Oxycodone HCl (Roxicodone -) 10 mg PO Q6H PRN PRN Reason: PAIN SCALE 4-10 Sotalol HCl (Betapace -) 80 mg PO BID [facility] Last Admin: 02/06/19 10:20 Dose: 80 mg - Objective Vital Signs: Vital Signs Temperature 98.8 F 02/06/19 05:00 Pulse Rate 70 02/06/19 05:00 Respiratory Rate 20 02/06/19 05:00 Blood Pressure 117/81 02/06/19 05:00 O2 Sat by Pulse Oximetry (%) 94 L 02/05/19 21:00 Eyes: Yes: PERRL HENT: Yes: Atraumatic Neck: Yes: Supple Cardiovascular: Yes: Regular Rate and Rhythm, S1, S2 Respiratory: Yes: CTA Bilaterally Gastrointestinal: Yes: Normal Bowel Sounds, Soft, Abdomen, Obese. No: Tenderness Edema: No Additional Findings/Remarks: - Review of Systems Constitutional: denies: Chills, Fever Cardiovascular: reports: Chest Pain, Shortness of Breath. denies: Palpitations Respiratory: reports: Cough, SOB. denies: Hemoptysis, Orthopnea, PND, SOB on Exertion Gastrointestinal: denies: Abdominal Pain, Constipation, Diarrhea, Melena, Nausea , Rectal Bleeding Genitourinary: denies: Dysuria, Hematuria Neurological: denies: Dizziness, Headache, Seizure, Syncope Problem List - Problems (1) HTN (hypertension) Code(s): I10 - ESSENTIAL (PRIMARY) HYPERTENSION Qualifiers: Hypertension type: essential hypertension Qualified Code(s): I10 - Essential (primary) hypertension (2) Right bundle branch block Code(s): I45.10 - UNSPECIFIED RIGHT BUNDLE-BRANCH BLOCK (3) Asthmatic bronchitis Code(s): J45.909 - UNSPECIFIED ASTHMA, UNCOMPLICATED Qualifiers: Asthma severity: unspecified severity Asthma persistence: unspecified Asthma complication type: uncomplicated Qualified Code(s): J45.909 - Unspecified asthma, uncomplicated (4) Chest pain Code(s): R07.9 - CHEST PAIN, UNSPECIFIED Qualifiers: Chest pain type: unspecified Qualified Code(s): R07.9 - Chest pain, unspecified (5) Obesity Code(s): E66.9 - OBESITY, UNSPECIFIED Qualifiers: Obesity type: unspecified obesity type (6) Shortness of breath Code(s): R06.02 - SHORTNESS OF BREATH (7) URI (upper respiratory infection) Code(s): J06.9 - ACUTE UPPER RESPIRATORY INFECTION, UNSPECIFIED (8) Paroxysmal atrial fibrillation with rapid ventricular response Code(s): I48.0 - PAROXYSMAL ATRIAL FIBRILLATION Assessment/Plan 1. Chest pain. SOB and cough suggest ? bronchitis - improving 2. Abnormal ECG with RBBB - PAF s/p synchronized cardioversion to sinus rhythm 3. Hilar lymph node 4. HTN 5. Exogenous obesity and probable OSAS PLAN: 1. Tranesophageal echocadiography reviewed 2. Continue Betapace 80 mg BID with monitoring QTc 3. Consider ACEI or ARB 4. Add Eliquis 5 mg BID and stop Heparin drip 5. Bronchodilator, empiric antibiotics, steroids and O2 6. DANAY reviewed with patient. There does not appear to have LA mass/myxoma 7. Consider sleep study as outpatient and further work up for SHERLEY Further plans are to follow Peter Damico MD
--- NOTE | 2019-02-06 11:28 | PN ---
Progress Note, Physician History of Present Illness: pulmonary alert,feeling better,DANAY findings noted - Current Medication List Current Medications: Active Medications Acetaminophen (Tylenol -) 650 mg PO Q6H PRN PRN Reason: FEVER Last Admin: 02/05/19 21:46 Dose: 650 mg Amoxicillin/Clavulanate Potassium (Augmentin - 875mg Tablet) 1 tab PO BID@0800, 1730 [facility] Last Admin: 02/06/19 10:21 Dose: 1 tab Guaifenesin (Robitussin Dm -) 10 ml PO Q6H PRN PRN Reason: COUGH Last Admin: 02/03/19 09:38 Dose: 10 ml Hydralazine HCl (Apresoline Injection -) 10 mg IVPUSH Q8H PRN PRN Reason: HYPERTENSION Methylprednisolone Sodium Succinate (Solu-Medrol -) 20 mg IVPUSH Q8H-IV [facility] Last Admin: 02/06/19 10:19 Dose: 20 mg Oxycodone HCl (Roxicodone -) 10 mg PO Q6H PRN PRN Reason: PAIN SCALE 4-10 Sotalol HCl (Betapace -) 80 mg PO BID [facility] Last Admin: 02/06/19 10:20 Dose: 80 mg - Objective Vital Signs: Vital Signs Temperature 98.8 F 02/06/19 05:00 Pulse Rate 70 02/06/19 05:00 Respiratory Rate 20 02/06/19 05:00 Blood Pressure 117/81 02/06/19 05:00 O2 Sat by Pulse Oximetry (%) 94 L 02/05/19 21:00 Constitutional: Yes: Well Nourished, Calm, Obese Eyes: Yes: WNL HENT: Yes: WNL Neck: Yes: WNL Cardiovascular: Yes: Regular Rate and Rhythm, S1, S2 Respiratory: Yes: Diminished Gastrointestinal: Yes: Normal Bowel Sounds, Soft Extremities: Yes: WNL Edema: No Labs: Problem List - Problems (1) Asthmatic bronchitis Code(s): J45.909 - UNSPECIFIED ASTHMA, UNCOMPLICATED Qualifiers: Qualified Code(s): J45.909 - Unspecified asthma, uncomplicated (2) Obesity Code(s): E66.9 - OBESITY, UNSPECIFIED (3) Shortness of breath Code(s): R06.02 - SHORTNESS OF BREATH Assessment/Plan IMP ASTHMATIC BRONCHITIS IMPROVING H/O THYMECTOMY PROMINENT R HILAR NODE LV DYSFUNCTION PLAN TAPER IV STEROIDS INHALED BRONCHODILATORS O2 PO ABX PFTS OUTPATIENT F/U CHEST CT OUTPATIENT DR DAVID Problem List - Problems (1) Asthmatic bronchitis Code(s): J45.909 - UNSPECIFIED ASTHMA, UNCOMPLICATED (2) Obesity Code(s): E66.9 - OBESITY, UNSPECIFIED (3) Shortness of breath Code(s): R06.02 - SHORTNESS OF BREATH
[2019-02-06] MEDS ORDERED: APIXABAN 5 MG TABLET PO SCH (11:30)
--- NOTE | 2019-02-06 15:30 | PN ---
Progress Note, Physician History of Present Illness: stable off of abx doing better - Current Medication List Current Medications: Active Medications Acetaminophen (Tylenol -) 650 mg PO Q6H PRN PRN Reason: FEVER Last Admin: 02/05/19 21:46 Dose: 650 mg Amoxicillin/Clavulanate Potassium (Augmentin - 875mg Tablet) 1 tab PO BID@0800, 1730 [facility] Last Admin: 02/06/19 10:21 Dose: 1 tab Apixaban (Eliquis -) 5 mg PO BID [facility] Last Admin: 02/06/19 11:37 Dose: 5 mg Guaifenesin (Robitussin Dm -) 10 ml PO Q6H PRN PRN Reason: COUGH Last Admin: 02/03/19 09:38 Dose: 10 ml Hydralazine HCl (Apresoline Injection -) 10 mg IVPUSH Q8H PRN PRN Reason: HYPERTENSION Methylprednisolone Sodium Succinate (Solu-Medrol -) 20 mg IVPUSH BID [facility] Oxycodone HCl (Roxicodone -) 10 mg PO Q6H PRN PRN Reason: PAIN SCALE 4-10 Sotalol HCl (Betapace -) 80 mg PO BID [facility] Last Admin: 02/06/19 10:20 Dose: 80 mg - Objective Vital Signs: Vital Signs Temperature 97.4 F L 02/06/19 14:00 Pulse Rate 76 02/06/19 14:00 Respiratory Rate 20 02/06/19 14:00 Blood Pressure 125/79 02/06/19 14:00 O2 Sat by Pulse Oximetry (%) 95 02/06/19 09:00 Constitutional: Yes: No Distress, Calm Cardiovascular: Yes: Regular Rate and Rhythm Respiratory: Yes: Regular, CTA Bilaterally Gastrointestinal: Yes: Normal Bowel Sounds, Soft Extremities: Yes: WNL Neurological: Yes: Alert, Oriented Psychiatric: Yes: Alert, Oriented Labs: CBC, BMP 01/30/19 05:30 01/30/19 05:30 INR, PTT INR 1.12 (0.83-1.09) H 01/29/19 15:47 Assessment/Plan Problem List - Problems (1) Obesity Code(s): E66.9 - OBESITY, UNSPECIFIED Qualifiers: Obesity type: unspecified obesity type (2) Chest pain Code(s): R07.9 - CHEST PAIN, UNSPECIFIED Qualifiers: Chest pain type: unspecified Qualified Code(s): R07.9 - Chest pain, unspecified (3) Shortness of breath Code(s): R06.02 - SHORTNESS OF BREATH (4) Asthmatic bronchitis Code(s): J45.909 - UNSPECIFIED ASTHMA, UNCOMPLICATED Qualifiers: Asthma severity: unspecified severity Asthma persistence: unspecified Asthma complication type: uncomplicated Qualified Code(s): J45.909 - Unspecified asthma, uncomplicated (5) HTN (hypertension) Code(s): I10 - ESSENTIAL (PRIMARY) HYPERTENSION Qualifiers: Hypertension type: unspecified Qualified Code(s): I10 - Essential (primary ) hypertension (6) URI (upper respiratory infection) Assessment/Plan: on abx pr id Code(s): J06.9 - ACUTE UPPER RESPIRATORY INFECTION, UNSPECIFIED plan stable off of abx resp exercises incentive kaveh rest as per the team
--- NOTE | 2019-02-06 18:04 | DS ---
Physical Examination Vital Signs: Vital Signs Temperature 97.4 F L 02/06/19 14:00 Pulse Rate 76 02/06/19 14:00 Respiratory Rate 20 02/06/19 14:00 Blood Pressure 125/79 02/06/19 14:00 O2 Sat by Pulse Oximetry (%) 95 02/06/19 09:00 Constitutional: Yes: No Distress HENT: Yes: Atraumatic Neck: Yes: Supple Cardiovascular: Yes: Regular Rate and Rhythm Respiratory: Yes: CTA Bilaterally Gastrointestinal: Yes: Normal Bowel Sounds Extremities: Yes: WNL Neurological: Yes: Alert, Oriented Labs: CBC, BMP 01/30/19 05:30 01/30/19 05:30 Discharge Summary Reason For Visit: CHEST PAIN Current Active Problems Asthmatic bronchitis (Acute) Chest pain (Acute) HTN (hypertension) (Acute) Obesity (Acute) Paroxysmal atrial fibrillation with rapid ventricular response (Acute) Right bundle branch block (Acute) Shortness of breath (Acute) URI (upper respiratory infection) (Acute) Condition: Stable - Instructions Diet, Activity, Other Instructions: see your title attorney 1 week or sooner if feel any symptoms return to ER if feel any chest pain, palpitations or any un usual symptoms Referrals: Jordan Dumont MD [Staff Physician] - Antonio Pham MD [Staff Physician] - Peter Damico MD [Staff Physician] - - Home Medications Comprehensive Discharge Medication List: Ambulatory Orders Oxycodone HCl/Acetaminophen [Percocet 10-325 mg Tablet] 1 each PO Q6H PRN #30 tablet MDD 4 08/15/18 Amox-Tr/K Cl [Augmentin 875-125mg Tablet -] 1 tab PO BID@0800,1730 #14 tablet Apixaban [Eliquis -] 5 mg PO BID #60 tablet 02/06/19 Prednisone 10 mg PO ASDIR #30 tablet 02/06/19 Sotalol HCl [Betapace -] 80 mg PO BID #60 tablet 02/06/19 [facility]
[2019-02-06 18:30] VITALS: BP 134/96; PULSE 66; TEMP 97.7
--- NOTE | 2019-02-06 21:57 | EKG ---
Test Reason : Blood Pressure : / mmHG Vent. Rate : 063 BPM Atrial Rate : 063 BPM P-R Int : 158 ms QRS Dur : 154 ms QT Int : 468 ms P-R-T Axes : 057 -27 -13 degrees QTc Int : 478 ms NORMAL SINUS RHYTHM RIGHT BUNDLE BRANCH BLOCK ABNORMAL ECG WHEN COMPARED WITH ECG OF 05-FEB-2019 13:03, CRITERIA FOR SEPTAL INFARCT ARE NO LONGER PRESENT CRITERIA FOR INFERIOR INFARCT ARE NO LONGER PRESENT T WAVE INVERSION LESS EVIDENT IN INFERIOR LEADS T WAVE INVERSION NO LONGER EVIDENT IN ANTERIOR LEADS Confirmed by MD SUNNI, DONNIE ([id number]) on 02/06/2019 9:57:24 PM Referred By: TAYLOR IVORY DR Confirmed By:DONNIE MOELLER MD
[2019-02-06] MEDS ORDERED: methylPREDNISolone NA SUCC 40 MG/1 ML VIAL IVPUSH SCH (22:00)
== END 2019-02-06 19:54 | disposition home or self-care (01) | DRG 201 ==
LOC: JER 14:20 → INTOOBSV 19:32 → JERBED 19:32 → J4W 01-30 03:31 → OBSVTOIN 01-30 15:53
PROVIDERS: ADMIT Internal Medicine; ATTEND Internal Medicine
PROC: B246ZZ4 Ultrasonography of Right and Left Heart, Transesophageal (ICD-10-PCS; principal; 2019-02-05 11:30)
DX: I48.0 Paroxysmal atrial fibrillation (principal); R07.89 Other chest pain; E66.01 Morbid (severe) obesity due to excess calories; Z68.42 Body mass index [BMI] 45.0-49.9, adult; I10 Essential (primary) hypertension; J06.9 Acute upper respiratory infection, unspecified; R06.02 Shortness of breath; J45.909 Unspecified asthma, uncomplicated; I45.10 Unspecified right bundle-branch block; R94.31 Abnormal electrocardiogram [ECG] [EKG]; G47.33 Obstructive sleep apnea (adult) (pediatric)
CPT/HCPCS: 36415; 71046-TC-FY; 71260-TC; 80053; 80061; 82550; 82553; 82803; 83036; 83721; 83880; 84484; 85025; 85379; 85610; 85730; 93005; 93010; 93306-TC; 93312; 93325; 94640; 99285-25; G0378; J1644

== ENCOUNTER 2019-04-15 19:03 | Emergency (ER) | payer BC ==
[2019-04-15 19:07] VITALS: BMI 42.0
--- NOTE | 2019-04-15 19:34 | PDOC ---
History of Present Illness - General Chief Complaint: Shortness of Breath Stated Complaint: SOB Time Seen by Provider: 04/15/19 19:34 History Source: Patient Exam Limitations: No Limitations - History of Present Illness Initial Comments: 04/15/19 19:49 53 year old male with PMH HTN, atrial fibrillation (diagnosed 02/01/19, s/p ablation 02/06/19, DC from ), thymectomy with right hemidiaphgram elevation, asthma, RBBB presented to ED for shortness of breath x2 weeks. Pt admitted to increased yellow sputum production, yellow nasal discharge, LE swelling x2 days. Pt admitted to headache. Pt denied fever, chills, chest pain, palpitations. Pt's symptoms are worsening, no alleviating or aggravating factors. Pt reported sleeping on 2-3 pillows a night. Allergies: oxycodone Past History - Past Medical History Allergies/Adverse Reactions: Allergies Allergy/AdvReac Type Severity Reaction Status Date / Time oxycodone [From OxyContin] Allergy "water Verified 04/15/19 19:07 blisters on face" Home Medications: Ambulatory Orders Apixaban [Eliquis -] 5 mg PO BID #60 tablet 02/06/19 Amoxicillin/Potassium Clav [Augmentin 875-125 Tablet] 1 each PO BID #28 tablet 04/15/19 Anemia: No Asthma: No Cancer: No Cardiac Disorders: No CVA: No COPD: No CHF: No Dementia: No Diabetes: No GI Disorders: No Disorders: No HTN: Yes Hypercholesterolemia: No Liver Disease: No Seizures: No Thyroid Disease: No - Surgical History Neurologic Surgery: Yes (cervical spinal fusion) Orthopedic Surgery: Yes (carpal tunnel/arthroscopy both hands) - Immunization History Immunization Up to Date: Yes - Suicide/Smoking/Psychosocial Hx Smoking History: Never smoked Have you smoked in the past 12 months: No Hx Alcohol Use: No Drug/Substance Use Hx: No Substance Use Type: None Hx Substance Use Treatment: No Review of Systems - Review of Systems Able to Perform ROS?: Yes Comments:: 04/15/19 19:52 General: denied fever, chills, generalized weakness. HEENT: denied sore throat, rhinorrhea, ear pain. Heart: admitted to LE swelling. denied chest pain, palpitations, syncope, diaphoresis. Respiratory: admitted to shortness of breath, cough, sputum production. denied hemoptysis. Abdomen: denied abdominal pain, nausea, vomiting, diarrhea, constipation, blood in stool. : denied dysuria, increased urinary frequency, hematuria, urinary incontinence , flank pain. Back: denied back pain. Musculoskeletal: denied joint pain, muscle pain, joint swelling. Neurological: admitted to headache. denied dizziness, numbness, tingling, weakness. Skin: denied rash, laceration, abrasion. *Physical Exam - Vital Signs Last Vital Signs Temp Pulse Resp BP Pulse Ox 98.4 F 95 H 18 132/81 94 L 04/15/19 19:04 04/15/19 19:04 04/15/19 19:04 04/15/19 19:04 04/15/19 19:04 - Physical Exam Comments: 04/15/19 19:52 Constitutional: Well-nourished, Well-developed, appearing stated age. HEENT: head is normocephalic, atraumatic. EOMI. PERRLA. left frontal sinus tenderness to palpation. nasal congestion. Neck: supple. Full ROM. Heart: regular rhythm. no murmurs, rubs or gallops. Lungs: crackles and decreased breath sounds to right base. speaking full sentences. left lung clear to auscultation. no wheezing bilaterally. no crackles bilaterally. Abdomen: soft, nontender. normal bowel sounds. no rebound, guarding, masses. Extremities: peripheral pulses intact. 1+ pitting edema bilaterally. Neurological: CN 2-12 grossly intact. moves all four extremities. Psych: awake, alert, oriented x3. follows commands. answers questions appropriately. ED Treatment Course - LABORATORY CBC & Chemistry Diagram: 04/15/19 19:39 04/15/19 19:39 Medical Decision Making - Medical Decision Making 04/15/19 19:53 53 year old male with above PMH presented to ED for SOB associated with productive yellow cough x2 weeks, LE swelling x2 days. Crackles and decreased breath sounds to right base, left frontal sinus tenderness to palpation. Chart review: Recent admission 01/29/19 - Chest pain/SOB/Cough - admitted EKG NSR with RBBB 01/30/19 - ECHO LVEF 60%, possible calcified mass in LA appendage 02/01/19 - episode of afib with RVR (132 BPM on EKG) 02/05/19 - DANAY: mild global hypokinesis of left ventricle. no left atrial mass or thrombus visualized. 02/06/19 - cardioversion, discharged in NSR on Eliquis Initial Vital Signs Temp Pulse Resp BP Pulse Ox 98.4 F 95 H 18 132/81 94 L 04/15/19 19:04 04/15/19 19:04 04/15/19 19:04 04/15/19 19:04 04/15/19 19:04 Afebrile. No tachycardia. No tachypnea. Mild hypertension. Mild hypoxia on room air. Labs ordered: CBC, CMP, TSH, troponin, BNP, PT/PTT/INR Imaging ordered: CXR Medications ordered: ASA 162 mg PO chew once, Tylenol 975 mg PO once EKG performed at 2041: rate 80, regular rhythm, RBBB, no acute ST changes. Similar to EKG performed 02/06/19. 04/15/19 20:[address] Ji' read: sharp costophrenic angles, elevated right hemidiaphgram, no cardiomegaly, no infiltrate, no pulmonary congestion. -Pending official report. 04/15/19 20:45 CMP Sodium 140 mmol/L (136-145) 04/15/19 19:39 Potassium 4.2 mmol/L (3.5-5.1) 04/15/19 19:39 Chloride 106 mmol/L (98-107) 04/15/19 19:39 Carbon Dioxide 27 mmol/L (21-32) 04/15/19 19:39 Anion Gap 7 MMOL/L (8-16) L 04/15/19 19:39 BUN 19 mg/dL (7-18) H 04/15/19 19:39 Creatinine 1.2 mg/dL (0.55-1.3) 04/15/19 19:39 Est GFR (CKD-EPI)AfAm 80.10 04/15/19 19:39 Est GFR (CKD-EPI)NonAf 69.11 04/15/19 19:39 Random Glucose 90 mg/dL (74-106) 04/15/19 19:39 Calcium 8.6 mg/dL (8.5-10.1) 04/15/19 19:39 Total Bilirubin 0.3 mg/dL (0.2-1) 04/15/19 19:39 AST 25 U/L (15-37) 04/15/19 19:39 ALT 49 U/L (13-61) 04/15/19 19:39 Alkaline Phosphatase 79 U/L (45-117) 04/15/19 19:39 Troponin I < 0.02 ng/ml (0.00-0.05) 04/15/19 19:39 B-Natriuretic Peptide 75.6 pg/ml (5-125) 04/15/19 19:39 Total Protein 7.2 g/dl (6.4-8.2) 04/15/19 19:39 Albumin 3.8 g/dl (3.4-5.0) 04/15/19 19:39 TSH 2.35 uIU/ml (0.358-3.74) 04/15/19 19:39 No electrolyte abnormalities. No ZORAN. No transaminitis. Troponin within normal limits Normal BNP Normal TSH 04/15/19 22:09 Pt seen and evaluated by Dr. Ji. Pt discharged. Medications ordered: Augmentin 875 mg PO once Discharge medications: Augment 875 mg PO BID x14 days 04/19/19 18:36 Follow up: Official CXR report: 2 views of the chest have been submitted. Since the prior study of 01/29/2019 again noted are the postsurgical changes and right chest wall deformity with elevated right hemidiaphragm and right scarring and nodular densities. The left lung is clear. The mediastinum is not widened. Impression: No acute change since 01/29/[address] report. *DC/Admit/Observation/Transfer Diagnosis at time of Disposition: Shortness of breath, Sinusitis, acute - Discharge Dispostion Disposition: HOME Condition at time of disposition: Stable Decision to Admit order: No - Prescriptions Prescriptions: Amoxicillin/Potassium Clav [Augmentin 875-125 Tablet] 1 each PO BID #28 tablet - Referrals - Patient Instructions Printed Discharge Instructions: DI for Sinusitis, DI for Shortness of Breath Additional Instructions: You were seen today for cough/shortness of breath. Your lab work was normal. Your EKG was similar to prior. Your Chest X-ray showed no pneumonia. You likely have a sinus infection. I have sent a prescription to your pharmacy for an antibiotic - take as advised on label. Take a probiotic over the counter while you are taking antibiotics to try to avoid diarrhea from the antibiotics. Drink lots of clear fluids, like water/gatorade, to stay hydrated. Take Tylenol over the counter for pain, take as advised on label. Follow up with your primary care doctor within 3 days. Your care is not complete until you follow up. Return to the Emergency Department for increasing pain despite tylenol use, chest pain, increasing shortness of breath, fever, lightheadedness like you may pass out, palpitations, increasing leg swelling, or any other new, worsening or concerning symptoms. - Post Discharge Activity Forms/Work/School Notes: Back to Work
[2019-04-15] MEDS ORDERED: ASPIRIN 81 MG CHEWABLE TABLETS PO ONE (19:36)
[2019-04-15 19:55] LABS: BASO % 1.1 % (0-2.0); EOS % 5.6 % (0-4.5); HEMATOCRIT 45.4 % (35.4-49); HEMOGLOBIN 14.7 GM/dL (11.7-16.9); LYMPH % 19.7 % (8-40); MCH 28.4 pg (25.7-33.7); MCHC 32.4 g/dl (32.0-35.9); MEAN CELL VOLUME 87.7 fl (80-96); MEAN PLT VOLUME 8.6 fl (7.5-11.1); NEUT % 58.6 % (42.8-82.8); PLATELET COUNT 194 K/MM3 (134-434); RBC 5.18 M/mm3 (4.00-5.60); RDW 15.6 % (11.9-15.9); WHITE BLOOD COUNT 6.8 K/mm3 (4.0-10.0)
[2019-04-15] MEDS ORDERED: ACETAMINOPHEN 325 MG TABLET (FP) PO ONE (20:06)
[2019-04-15 20:07] LABS: INR 1.13 (0.83-1.09); PROTHROMBIN TIME (PATIENT) 13.4 SEC (9.7-13.0)
[2019-04-15] MEDS ORDERED: ACETAMINOPHEN 325 MG TABLET (FP) ONE (20:08)
[2019-04-15] MEDS ORDERED: ASPIRIN 81 MG CHEWABLE TABLETS ONE (20:08)
[2019-04-15 20:10] LABS: ACTIVATED PTT 31.9 SECONDS (25.2-36.5)
[2019-04-15 20:33] LABS: ALBUMIN 3.8 g/dl (3.4-5.0); ALK PHOS 79 U/L (45-117); ANION GAP 7 MMOL/L (8-16); BILIRUBIN,TOTAL 0.3 mg/dL (0.2-1); BLOOD UREA NITROGEN 19 mg/dL (7-18); CALCIUM 8.6 mg/dL (8.5-10.1); CHLORIDE 106 mmol/L (98-107); CO2 27 mmol/L (21-32); CREATININE 1.2 mg/dL (0.55-1.3); GLUCOSE,RANDOM 90 mg/dL (74-106); N-TERMINAL BNP 75.6 pg/ml (5-125); POTASSIUM 4.2 mmol/L (3.5-5.1); SGOT/AST 25 U/L (15-37); SGPT/ALT 49 U/L (13-61); SODIUM 140 mmol/L (136-145); TOT PROT 7.2 g/dl (6.4-8.2)
[2019-04-15] MEDS ORDERED: AMOX TR/POT CLAV 875MG/125MG TABLETS (FP) PO ONE (22:11)
--- NOTE | 2019-04-15 22:18 | PDOC ---
Documentation entered by Christine Mckeon SCRIBE, acting as scribe for Dulce Ji MD. Dulce Ji MD: This documentation has been prepared by the crowibe, Christine Mckeon SCRIBE, under my direction and personally reviewed by me in its entirety. I confirm that the documentation accurately reflects all work, treatment, procedures, and medical decision making performed by me. Attending Attestation - Resident Resident Name: Arabella Carson - ED Attending Attestation I have performed the following: I have examined & evaluated the patient, The case was reviewed & discussed with the resident, I agree w/resident's findings & plan, Exceptions are as noted - HPI HPI: 04/15/19 20:44 The patient is a 53-year-old male with a past medical history significant for asthma, HTN, Afib (s/p ablation, on AC) presents to the emergency department with shortness of breath. The patient presents with 2 weeks of shortness of breath, associated with yellow sputum production and 2 days of lower extremity swelling. Denies chest pain. Denies fever or chills. Allergies: Oxycodone - Physicial Exam PE: 04/15/19 21:34 GENERAL: +diaphoretic and morbidly obese. Well developed, well nourished. Awake and alert. No acute distress. HEENT: Normocephalic, atraumatic. PERRLA, EOMI. No conjunctival pallor. Sclera are non- icteric. Moist mucous membranes. Oropharynx is clear. NECK: Supple. Full ROM. No JVD. Carotid pulses 2+ and symmetric, without bruits. No thyromegaly. No lymphadenopathy. CARDIOVASCULAR: Regular rate and rhythm. No murmurs, rubs, or gallops. Distal pulses are 2+ and symmetric. PULMONARY: No evidence of respiratory distress. Lungs clear to auscultation bilaterally. No wheezing, crackles, rales or rhonchi. ABDOMINAL: +protuberant belly. Soft. Non-tender. No rebound or guarding. No organomegaly. Normoactive bowel sounds. MUSCULOSKELETAL Normal range of motion at all joints. No bony deformities or tenderness. No CVA tenderness. EXTREMITIES: +minimal lower extremity edema. No cyanosis. No clubbing. No calf tenderness. SKIN: +clammy. Warm. Normal capillary refill. No rashes. No jaundice. NEUROLOGICAL: Alert, awake, Oriented x3. Ambulatory. PSYCHIATRIC: Cooperative. Good eye contact. Appropriate mood and affect. - Medical Decision Making 04/15/19 22:09 53 yo male p/w low grade fever (99.8 orally) ,cough,nasal congestion and sinus pressure he is not hypoxic ,lungs are clear b/l,he is not tachypnic labs reviewed/ cbc wnl chemistreis unremarkable neg trop ekg nsr @ 80 bpm, no change from prior ekg pt states he had a ct scan of chest done at outside facility last Tuesday and is following up with Dr Rossi this week He denies substernal chest pain . imp: possible infiltrates/sinusitis,URI plan antibiotics
[2019-04-15] MEDS ORDERED: AMOX TR/POT CLAV 875MG/125MG TABLETS (FP) ONE (22:44)
[2019-04-15 22:48] VITALS: PULSE 80
[2019-04-16 00:03] VITALS: BP 132/88; TEMP 98.2
--- NOTE | 2019-04-16 11:21 | EKG ---
Test Reason : Blood Pressure : / mmHG Vent. Rate : 080 BPM Atrial Rate : 080 BPM P-R Int : 156 ms QRS Dur : 134 ms QT Int : 420 ms P-R-T Axes : 045 -34 -06 degrees QTc Int : 484 ms NORMAL SINUS RHYTHM POSSIBLE LEFT ATRIAL ENLARGEMENT LEFT AXIS DEVIATION RIGHT BUNDLE BRANCH BLOCK ABNORMAL ECG WHEN COMPARED WITH ECG OF 06-FEB-2019 12:09, NONSPECIFIC T WAVE ABNORMALITY NOW EVIDENT IN ANTERIOR LEADS Confirmed by AMY BOB, GERARD ([id number]) on 04/16/2019 11:21:38 AM Referred By: Confirmed By:GERARD REYES MD
== END 2019-04-16 00:10 | disposition home or self-care (01) ==
LOC: JER 19:03
DX: J01.90 Acute sinusitis, unspecified (principal); J45.909 Unspecified asthma, uncomplicated; Z86.79 Personal history of other diseases of the circulatory system
CPT/HCPCS: 36415; 71046-TC-FY; 80053; 83880; 84443; 84484; 85025; 85610; 85730; 93005; 93010; 99282-25

== ENCOUNTER 2019-07-14 21:18 | Emergency (ER) | payer BC, OTHER ==
[2019-07-14 21:26] VITALS: PULSE 84; TEMP 98.2; BMI 42.0
[2019-07-14] MEDS ORDERED: KETOROLAC TROMETHAMINE 60 MG/2 ML VIAL IM ONE (21:48)
[2019-07-14] MEDS ORDERED: CYCLOBENZAPRINE HCL 10 MG TABLET (FP) PO ONE (21:49)
--- NOTE | 2019-07-14 21:53 | PDOC ---
History of Present Illness - General Chief Complaint: Back Pain Stated Complaint: INJURY Time Seen by Provider: 07/14/19 21:45 History Source: Patient - History of Present Illness Pain Location: reports: back Past History - Past Medical History Allergies/Adverse Reactions: Allergies Allergy/AdvReac Type Severity Reaction Status Date / Time oxycodone [From OxyContin] Allergy "water Verified 04/15/19 19:07 blisters on face" Home Medications: Ambulatory Orders Apixaban [Eliquis -] 5 mg PO BID #60 tablet 02/06/19 Amoxicillin/Potassium Clav [Augmentin 875-125 Tablet] 1 each PO BID #28 tablet 04/15/19 Cyclobenzaprine HCl [Flexeril 10 mg] 10 mg PO HS #9 tablet 07/14/19 Ibuprofen [Motrin -] 800 mg PO Q6H #30 tablet 07/14/19 Anemia: No Asthma: No Cancer: No Cardiac Disorders: No CVA: No COPD: No CHF: No Dementia: No Diabetes: No GI Disorders: No Disorders: No HTN: Yes Hypercholesterolemia: No Liver Disease: No Seizures: No Thyroid Disease: No - Surgical History Neurologic Surgery: Yes (cervical spinal fusion) Orthopedic Surgery: Yes (carpal tunnel/arthroscopy both hands) - Immunization History Immunization Up to Date: Yes - Suicide/Smoking/Psychosocial Hx Smoking History: Never smoked Have you smoked in the past 12 months: No Hx Alcohol Use: No Drug/Substance Use Hx: No Substance Use Type: None Hx Substance Use Treatment: No Review of Systems - Review of Systems ABD/GI: No: Nausea, Vomiting, Abdominal cramping Musculoskeletal: Yes: Back Pain Neurological: No: Numbness, Paresthesia, Tingling, Weakness *Physical Exam - Vital Signs Last Vital Signs Temp Pulse Resp BP Pulse Ox 98.2 F 84 19 161/101 H 97 07/14/19 21:24 07/14/19 21:24 07/14/19 21:24 07/14/19 21:24 07/14/19 21:24 - Physical Exam Comments: 07/14/19 21:58 Pt limping in ED General Appearance: Yes: Appropriately Dressed, Moderate Distress HEENT: positive: Normal Voice Neck: positive: Supple Respiratory/Chest: negative: Respiratory Distress Gastrointestinal/Abdominal: positive: Normal Bowel Sounds, Soft. negative: Tender, Pulsatile Mass, Distended, Guarding, Rebound Musculoskeletal: positive: Vertebral Tenderness (to R lower back). negative: CVA Tenderness Integumentary: positive: Dry, Warm Neurologic: positive: Fully Oriented, Alert, Normal Mood/Affect, Motor Strength 03/18 Medical Decision Making - Medical Decision Making 07/14/19 21:46 53-year-old morbidly obesed male with history of HTN, afib s/p ablation, no longer on AC, asthma, here with lower back pain. 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 Taking multiple [id number] medications and flexeril with no relief. No sensory changes, lower extremity weakness, saddle anesthesia or bowel or bladder incontinence. Denies any acute symptoms, nausea, vomiting, fever or chills. No history of back pain per pt See exam LBP in setting of heavy lifting No neuro sxs No infectious sxs Elevated BP here but m/l 2/2 pain, unlikely dissection Will reassess after pain control in ER 07/14/19 23:03 Pt report relief w/ meds. Leo better w/ improved BP. Will dc w/ pain control. To f/u with PMD as needed *DC/Admit/Observation/Transfer Diagnosis at time of Disposition: Low back pain Qualifiers: Chronicity: acute Back pain laterality: right Sciatica presence: without sciatica Qualified Code(s): M54.5 - Low back pain - Discharge Dispostion Disposition: HOME Condition at time of disposition: Improved - Prescriptions Prescriptions: Cyclobenzaprine HCl [Flexeril 10 mg] 10 mg PO HS #9 tablet Ibuprofen [Motrin -] 800 mg PO Q6H #30 tablet - Referrals Referrals: Antonio Pham MD [Primary Care Provider] - - Patient Instructions Printed Discharge Instructions: Low Back Pain Additional Instructions: Take medications as directed If pain persists, return to ER for follow up with your PMD - Post Discharge Activity Forms/Work/School Notes: Back to Work
[2019-07-14] MEDS ORDERED: KETOROLAC TROMETHAMINE 60 MG/2 ML VIAL ONE (22:19)
[2019-07-14] MEDS ORDERED: CYCLOBENZAPRINE HCL 10 MG TABLET (FP) ONE (22:20)
[2019-07-14 22:53] VITALS: BP 140/91
== END 2019-07-14 23:05 | disposition home or self-care (01) ==
LOC: JER 21:18
PROC: 3E0233Z Introduction of Anti-inflammatory into Muscle, Percutaneous Approach (ICD-10-PCS; principal; 2019-07-14)
DX: M54.5 Low back pain (principal); X50.0XXA Overexertion from strenuous movement or load, initial encounter; Y93.89 Activity, other specified; Y92.59 Other trade areas as the place of occurrence of the external cause; Y99.0 Civilian activity done for income or pay
CPT/HCPCS: 99282-25

== ENCOUNTER 2020-07-07 16:09 | Emergency (ER) | payer OTHER ==
[2020-07-07 16:14] VITALS: BP 140/90; PULSE 120; TEMP 98.3; BMI 39.4
--- NOTE | 2020-07-07 16:15 | PDOC ---
Rapid Medical Evaluation Time Seen by Provider: 07/07/20 16:12 Medical Evaluation: Allergies Allergy/AdvReac Type Severity Reaction Status Date / Time No Known Allergies Allergy Verified 07/07/20 16:12 07/07/20 16:13 Pt presents for evaluation of L wrist pain s/p mechanical trip and fall this morning Exam: L arm in sling, swelling to the L hand and wrist Orders: x-ray Pt to proceed to the ER for further evaluation Discharge Disposition - Diagnosis Wrist pain Qualifiers: Laterality: left Qualified Code(s): M25.532 - Pain in left wrist - Referrals - Patient Instructions - Post Discharge Activity
--- NOTE | 2020-07-07 16:47 | PDOC ---
History of Present Illness - General Chief Complaint: Bone Injury Stated Complaint: WRIST INJURY Time Seen by Provider: 07/07/20 16:12 - History of Present Illness Initial Comments: 07/07/20 16:45 54-year-old male with bilateral hip osteoarthritis presents for evaluation of left wrist pain. He states he was getting up out of bed this morning and his legs gave out causing him to Hyperflex his wrist into the door. He points to the dorsum of his left wrist as the area of his discomfort. Past History - Medical History Allergies/Adverse Reactions: Allergies Allergy/AdvReac Type Severity Reaction Status Date / Time No Known Allergies Allergy Verified 07/07/20 16:12 Home Medications: Ambulatory Orders Apixaban [Eliquis -] 5 mg PO BID #60 tablet 02/06/19 Amoxicillin/Potassium Clav [Augmentin 875-125 Tablet] 1 each PO BID #28 tablet 04/15/19 Cyclobenzaprine HCl [Flexeril 10 mg] 10 mg PO HS #9 tablet 07/14/19 Ibuprofen [Motrin -] 800 mg PO Q6H #30 tablet 07/14/19 Anemia: No Asthma: No Cancer: No Cardiac Disorders: No CVA: No COPD: No CHF: No Dementia: No Diabetes: No GI Disorders: No Disorders: No HTN: Yes Hypercholesterolemia: No Liver Disease: No Seizures: No Thyroid Disease: No - Surgical History Neurologic Surgery: Yes (cervical spinal fusion) Orthopedic Surgery: Yes (carpal tunnel/arthroscopy both hands) - Immunization History Immunization Up to Date: Yes - Psycho-Social/Smoking History Smoking History: Never smoked Have you smoked in the past 12 months: No - Substance Abuse Hx (Audit-C & DAST Scrn) How often the patient has a drink containing alcohol: Never Score: In Men: 4 or > Positive; In Women: 3 or > Positive: 0 Screen Result (Pos requires Nsg. Audit-10AR): Negative In the last yr the pt used illegal drug/Rx for NonMed reason: No Score: Yes response is considered Positive: 0 Screen Result (Positive result requires Nsg. DAST-10): Negative Review of Systems - Review of Systems Musculoskeletal: Yes: Joint Pain *Physical Exam - Vital Signs Last Vital Signs Temp Pulse Resp BP Pulse Ox 98.3 F 120 H 20 140/90 98 07/07/20 16:13 07/07/20 16:13 07/07/20 16:13 07/07/20 16:13 07/07/20 16:13 - Physical Exam 07/07/20 16:45 Left wrist skin color and temperature normal range of motion is limited. Pain is diffuse and out of proportion to the examination without any gross sensorimotor deficits neurovascular intact. Medical Decision Making - Medical Decision Making 07/07/20 16:45 Soft tissue swelling without evidence of acute fracture trauma or destructive process left wrist sprain. Cock-up wrist splint follow-up with orthopedics. I have reviewed the pathophysiology with the patient. They are in agreement with the treatment plan all questions were answered to their satisfaction. Understanding for follow-up without fail was also conveyed to the patient. Again they are in agreement. Discharge - Discharge Information Problems reviewed: Yes Clinical Impression/Diagnosis: Wrist pain Qualifiers: Laterality: left Qualified Code(s): M25.532 - Pain in left wrist Condition: Stable Disposition: HOME - Admission No - Follow up/Referral Referrals: Hiram Mccarthy MD [Staff Physician] - - Patient Discharge Instructions Additional Instructions: Please wear the wrist splint as directed you may remove it for hygiene otherwise wear it while sleeping and during the day. Return to the emergency room for worsening symptoms and without fail follow-up with orthopedic surgery in 2 to 3 days for further evaluation and treatment options. Tylenol for pain as directed. - Post Discharge Activity
[2020-07-07] MEDS ORDERED: ACETAMINOPHEN 500 MG TABLET (FP) PO ONE (17:00)
[2020-07-07] MEDS ORDERED: ACETAMINOPHEN 500 MG TABLET (FP) ONE (17:00)
== END 2020-07-07 17:06 | disposition home or self-care (01) ==
LOC: JERFT 16:09
DX: M25.532 Pain in left wrist (principal)
CPT/HCPCS: 73110-TC-LT-FY; 73130-TC-LT-FY; 99283-25